=== PATIENT | female | born 1955 | race Caucasian/White ===

== ENCOUNTER 2016-07-22 15:22 | Emergency (ER) | payer MEDICARE, MEDICAID ==
[~2016-07-22] VITALS: Ht 160 cm; Wt 75.0 kg
[~2016-07-22 15:22] MED LIST: ACETAMINOPHEN325 MG PO; ALBUTEROL90 MCG IN; ALPRAZOLAM1 MG PO; ALTOPREV20 MG OR; AMBIEN10 MG PO; AMOXICILLIN500 MG OR; ANTABUSE250 MG OR; ANTIVERT PO; AZMACORT100 MCG IN; BABY ASPIRIN81 MG OR; BAYER LOW81 MG OR; BL IBUPROFEN200 MG PO; CALCITONIN200 MG/ACT; CALCIUM500 MG OR; CEFTIN500 MG PO; CIPROFLOXACN500 MG PO; CLONAZEP ODT0.5 MG OR; CLONAZEPAM1 MG PO; COMPAZINE10 M1 PO; DEPAKOTE ER250 MG PO; FIBERCHOICE OR; FIORICET PO; FLEXERIL; FLEXERIL PO; FLEXERIL10 MG PO; GENTAMICIN0.31 OS; GEODON60 MG PO; HYDROCHLOROTH12.5 MG OR; IMITREX25 MG PO; INDERAL 40MG TA40 MG PO; INVANZ1 GM IJ; KLONOPIN0.5 MG OR; KLONOPIN1 MG PO; LAMICTAL100 M1 PO; LEVOTHROID25 MC1 PO; LEXAPRO10 MG PO; LEXAPRO20 MG OR; LIBRIUM10 M1 PO; LIPITOR80 MG PO; LISINOPRIL5 MG PO; LITHIUM CARB300 M1 OR; LORTAB 10-325 M1 TAB PO; LORTAB 5-325 MG1 TAB PO; LOVASTATIN20 MG OR; MACRODANTIN100 MG PO; MAGNESIUM200 MG OR; MEDDOSEPAK PO; METFORMIN500 MG PO; MULTIVITAMI1 OR; NAPROSYN500 MG PO; NEURONTIN300 MG PO; NEXIUM40 M1 PO; NORCO1 TA1 PO; ONDANSETRON4 MG OR; ONDANSETRON4 MG PO; PERIDEX0.12 % MT; PRILOSEC20 MG OR; PROAIR HFA IN; QVAR80 MCG IN; RISPERDAL0.5 MG OR; SEROQUEL25 MG OR; SOMA350 MG PO; SYMBICORT 80-4.5MCG INHW/SPAC; SYMBICORT 80-4.5MCG PO; TAM75CAP PO; TOPAMAX100 MG PO; TOPAMAX50 MG PO; TORADOL PO; TRAMADOL HYDROC50 MG PO; TRAZODONE100 MG OR; TRAZODONE150 MG OR; TRAZODONE300 MG OR; ULTRAM50 M1 PO; ULTRAM50 MG OR; ULTRAM50 MG PO; VALIUM10 MG OR; VENTOLIN HFA IN; WELLBUTRIN150 M1 PO; XANAX0.5 MG PO; ZANTAC150 M1 PO; ZINC15 MG OR; ZOFRAN4 MG/TAB PO
[2016-07-22 15:45] VITALS: BP 131/55
[2016-07-23] MEDS ORDERED: ULTRAM50 M1 PO (00:03)
== END 2016-07-22 17:40 | disposition left against medical advice (07) ==
LOC: ED 15:22 → LWOBS 17:40
DX: Z91.19 Patient's noncompliance with other medical treatment and regimen (principal)

== ENCOUNTER 2016-07-22 23:09 | Emergency (ER) | payer MEDICARE, MEDICAID ==
[~2016-07-22] VITALS: Ht 160 cm; Wt 76.6 kg
[2016-07-23] MEDS ORDERED: ULTRAM50 M1 PO (00:03)
[2016-07-23 00:26] VITALS: BP 130/86
== END 2016-07-23 00:25 | disposition home or self-care (01) ==
LOC: ED 23:09
DX: S63.501A Unspecified sprain of right wrist, initial encounter (principal); W18.30XA Fall on same level, unspecified, initial encounter; Y93.89 Activity, other specified; Y92.512 Supermarket, store or market as the place of occurrence of the external cause

== ENCOUNTER 2016-08-10 14:54 | Emergency (ER) | payer MEDICARE, MEDICAID ==
[~2016-08-10] VITALS: Ht 160 cm; Wt 72.0 kg
[2016-08-10] MEDS ORDERED: AMBIEN5 MG PO (15:26)
[2016-08-10] MEDS ORDERED: TRAZODONE50 MG PO (15:28)
[2016-08-10] MEDS ORDERED: NORCO1 TA1 PO (15:59)
[2016-08-10 16:23] VITALS: BP 138/81
== END 2016-08-10 16:23 | disposition home or self-care (01) ==
LOC: ED 14:54
DX: G43.909 Migraine, unspecified, not intractable, without status migrainosus (principal)

== ENCOUNTER 2016-08-15 12:39 | Emergency (ER) | payer MEDICARE, MEDICAID ==
[~2016-08-15] VITALS: Ht 160 cm; Wt 70.5 kg
[~2016-08-15 12:39] MED LIST changes: +AMBIEN5 MG PO; +TRAZODONE50 MG PO
[2016-08-15 13:33] LABS: URINE BILIRUBIN - DIPSTICK NEGATIVE (NEGATIVE); URINE BLOOD DIPSTICK NEGATIVE (NEGATIVE); URINE CLARITY CLEAR; URINE COLOR YELLOW; URINE GLUCOSE - DIPSTICK NEGATIVE (NEGATIVE); URINE KETONE NEGATIVE (NEGATIVE); URINE NITRITE - DIPSTICK NEGATIVE (Negative); URINE PH 5.5 (4.5-8.0); URINE PROTEIN - DIPSTICK NEGATIVE (NEG-TRACE); URINE SPECIFIC GRAVITY <=1.005; URINE UROBILINOGEN - DIPSTICK 0.2 E.U./dL (0.2)
[2016-08-15 13:43] LABS: HEMATOCRIT 37.2 % (37.0-47.0); HEMOGLOBIN 11.6 g/dl (12.0-16.0); IMMATURE GRANULOCYTES 0.3 % (0.0-1.0); MEAN CELL VOLUME 86.3 fL CALC (80.0-100.0); MEAN CORPUSCULAR HGB 26.9 pG CALC (26.0-32.0); MEAN CORPUSCULAR HGB CONC 31.2 g/L CALC (32.0-36.0); NEUT# 6.73 thou/uL (2.00-7.15); RED BLOOD COUNT 4.31 mill/uL (4.20-5.60); RED CELL DISTRI WIDTH 17.3 % (11.5-15.5)
[2016-08-15 13:55] LABS: ALBUMIN 3.5 g/dL (3.2-5.0); ALKALINE PHOSPHATASE 113 u/l (38-126); ANION GAP 15 (6-22 (CALC)); BILIRUBIN, TOTAL 0.2 mg/dL (0.0-1.4); BUN 7 mg/dL (8-23); BUN/CREATININE RATIO 12 (12-20 (CALC)); CALCIUM 9.2 mg/dL (8.4-10.2); CARBON DIOXIDE 26 mmol/l (22-30); CHLORIDE 101 mmol/l (95-108); CREATININE 0.6 mg/dL (0.5-1.0); GFR > 60 ML/MIN (>=60 (CALC)); GFR FOR AFR.AMER. > 60 ML/MIN (>=60 (CALC)); GLUCOSE 89 mg/dL (82-115); POTASSIUM 4.4 mmol/l (3.5-5.1); SGOT/AST 11 u/l (9-36); SGPT/ALT 21 u/l (11-66); SODIUM 138 mmol/l (137-146); TOTAL PROTEIN 6.4 g/dL (6.3-8.2)
[2016-08-15 14:07] LABS: MYOGLOBIN 16 ng/mL (0 - 62)
[2016-08-15] MEDS ORDERED: TOPIRAMATE100 MG PO (14:12)
[2016-08-15 15:16] LABS: URINE LEUK ESTERASE SMALL (NEGATIVE)
[2016-08-15 15:18] LABS: URINE BACTERIA MODERATE hpf; URINE SQUAMOUS EPITHELIAL CELL FEW EPI/hpf (0-FEW)
[2016-08-15] MEDS ORDERED: CEPHALEXIN500 MG PO (16:05)
[2016-08-15 16:11] VITALS: BP 129/72
== END 2016-08-15 16:17 | disposition home or self-care (01) ==
LOC: ED 12:39
PROVIDERS: Emergency Medicine
DX: S00.83XA Contusion of other part of head, initial encounter (principal); S00.33XA Contusion of nose, initial encounter; N39.0 Urinary tract infection, site not specified; B96.20 Unspecified Escherichia coli [E. coli] as the cause of diseases classified elsewhere; W18.12XA Fall from or off toilet with subsequent striking against object, initial encounter; Y93.89 Activity, other specified; Y92.002 Bathroom of unspecified non-institutional (private) residence as the place of occurrence of the external cause; I10 Essential (primary) hypertension; R42 Dizziness and giddiness; F17.200 Nicotine dependence, unspecified, uncomplicated

== ENCOUNTER 2016-08-24 08:41 | Emergency (ER) | payer MEDICARE, MEDICAID ==
[~2016-08-24] VITALS: Ht 160 cm; Wt 70.0 kg
[~2016-08-24 08:41] MED LIST changes: +CEPHALEXIN500 MG PO; +TOPIRAMATE100 MG PO
[2016-08-24] MEDS ORDERED: VANTIN200 M1 PO (08:55)
[2016-08-24 09:19] LABS: HEMATOCRIT 39.6 % (37.0-47.0); HEMOGLOBIN 12.6 g/dl (12.0-16.0); IMMATURE GRANULOCYTES 0.4 % (0.0-1.0); MEAN CELL VOLUME 85.3 fL CALC (80.0-100.0); MEAN CORPUSCULAR HGB 27.2 pG CALC (26.0-32.0); MEAN CORPUSCULAR HGB CONC 31.8 g/L CALC (32.0-36.0); NEUT# 5.53 thou/uL (2.00-7.15); RED BLOOD COUNT 4.64 mill/uL (4.20-5.60); RED CELL DISTRI WIDTH 17.2 % (11.5-15.5)
[2016-08-24 09:28] LABS: ALBUMIN 3.7 g/dL (3.2-5.0); ALKALINE PHOSPHATASE 114 u/l (38-126); AMYLASE 56 u/l (30-110); ANION GAP 15 (6-22 (CALC)); BILIRUBIN, TOTAL 0.2 mg/dL (0.0-1.4); BUN 5 mg/dL (8-23); BUN/CREATININE RATIO 8 (12-20 (CALC)); CALCIUM 9.3 mg/dL (8.4-10.2); CARBON DIOXIDE 23 mmol/l (22-30); CHLORIDE 101 mmol/l (95-108); CREATININE 0.7 mg/dL (0.5-1.0); GFR > 60 ML/MIN (>=60 (CALC)); GFR FOR AFR.AMER. > 60 ML/MIN (>=60 (CALC)); GLUCOSE 94 mg/dL (82-115); LIPASE 48 u/l (23-300); SGOT/AST 12 u/l (9-36); SGPT/ALT 19 u/l (11-66); SODIUM 136 mmol/l (137-146)
[2016-08-24 09:39] LABS: MYOGLOBIN 15 ng/mL (0 - 62)
[2016-08-24 10:37] LABS: URINE BILIRUBIN - DIPSTICK NEGATIVE (NEGATIVE); URINE BLOOD DIPSTICK NEGATIVE (NEGATIVE); URINE CLARITY CLEAR; URINE COLOR YELLOW; URINE GLUCOSE - DIPSTICK NEGATIVE (NEGATIVE); URINE KETONE NEGATIVE (NEGATIVE); URINE LEUK ESTERASE NEGATIVE (NEGATIVE); URINE NITRITE - DIPSTICK NEGATIVE (Negative); URINE PROTEIN - DIPSTICK NEGATIVE (NEG-TRACE); URINE SPECIFIC GRAVITY <=1.005; URINE UROBILINOGEN - DIPSTICK 0.2 E.U./dL (0.2)
[2016-08-24] MEDS ORDERED: IMODIUM2 MG PO (10:59)
[2016-08-24] MEDS ORDERED: ZOFRAN ODT4 MG PO (10:59)
[2016-08-24 11:02] VITALS: BP 141/83
== END 2016-08-24 11:14 | disposition home or self-care (01) ==
LOC: ED 08:41
PROVIDERS: Emergency Medicine
DX: K52.9 Noninfective gastroenteritis and colitis, unspecified (principal); R11.2 Nausea with vomiting, unspecified; R94.31 Abnormal electrocardiogram [ECG] [EKG]; R50.9 Fever, unspecified; F17.210 Nicotine dependence, cigarettes, uncomplicated; R10.9 Unspecified abdominal pain

== ENCOUNTER 2016-09-16 10:29 | Emergency (ER) | payer MEDICARE, MEDICAID ==
[~2016-09-16] VITALS: Ht 160 cm; Wt 90.0 kg
[~2016-09-16 10:29] MED LIST changes: +IMODIUM2 MG PO; +VANTIN200 M1 PO; +ZOFRAN ODT4 MG PO
[2016-09-16 11:35] VITALS: BP 130/78
== END 2016-09-16 11:38 | disposition home or self-care (01) ==
LOC: ED 10:29
DX: G43.909 Migraine, unspecified, not intractable, without status migrainosus (principal); I25.10 Atherosclerotic heart disease of native coronary artery without angina pectoris; E78.5 Hyperlipidemia, unspecified; F31.9 Bipolar disorder, unspecified; J45.909 Unspecified asthma, uncomplicated; F41.9 Anxiety disorder, unspecified

== ENCOUNTER 2016-10-13 16:44 | Emergency (ER) | payer MEDICARE, MEDICAID ==
[~2016-10-13] VITALS: Ht 160 cm; Wt 75.0 kg
[2016-10-13] MEDS ORDERED: ESOMEPRAZOLE MA40 MG PO (17:35)
[2016-10-13] MEDS ORDERED: FUROSEMIDE20 MG PO (17:35)
[2016-10-13] MEDS ORDERED: ANTIVERT PO (17:36)
[2016-10-13] MEDS ORDERED: ZOLMITRIPTAN5 MG PO (17:38)
[2016-10-13] MEDS ORDERED: TIZANIDINE HCL4 MG PO (17:39)
[2016-10-13] MEDS ORDERED: FLEXERIL PO (19:13)
[2016-10-13] MEDS ORDERED: LORTAB 10-325 M1 TAB PO (19:13)
[2016-10-13 19:20] VITALS: BP 131/74
== END 2016-10-13 19:20 | disposition home or self-care (01) ==
LOC: ED 16:44
DX: S39.012A Strain of muscle, fascia and tendon of lower back, initial encounter (principal); X50.0XXA Overexertion from strenuous movement or load, initial encounter; Y93.E9 Activity, other interior property and clothing maintenance; Y92.009 Unspecified place in unspecified non-institutional (private) residence as the place of occurrence of the external cause

== ENCOUNTER 2016-11-15 07:52 | Emergency (ER) | payer MEDICARE, MEDICAID ==
[~2016-11-15] VITALS: Ht 160 cm; Wt 70.0 kg
[~2016-11-15 07:52] MED LIST changes: +ESOMEPRAZOLE MA40 MG PO; +FUROSEMIDE20 MG PO; +TIZANIDINE HCL4 MG PO; +ZOLMITRIPTAN5 MG PO
[2016-11-15] MEDS ORDERED: LAMICTAL100 MG PO (08:28)
[2016-11-15 09:00] LABS: HEMATOCRIT 35.8 % (37.0-47.0); HEMOGLOBIN 11.4 g/dl (12.0-16.0); IMMATURE GRANULOCYTES 0.3 % (0.0-1.0); MEAN CELL VOLUME 87.1 fL CALC (80.0-100.0); MEAN CORPUSCULAR HGB 27.7 pG CALC (26.0-32.0); MEAN CORPUSCULAR HGB CONC 31.8 g/L CALC (32.0-36.0); NEUT# 6.21 thou/uL (2.00-7.15); RED BLOOD COUNT 4.11 mill/uL (4.20-5.60); RED CELL DISTRI WIDTH 17.1 % (11.5-15.5)
[2016-11-15 09:01] LABS: ALBUMIN 3.8 g/dL (3.2-5.0)
[2016-11-15] MEDS ORDERED: ESCITALOPRAM OX10 MG PO (09:07)
[2016-11-15] MEDS ORDERED: TOPIRAMATE100 MG PO (09:08)
[2016-11-15] MEDS ORDERED: GABAPENTIN100 MG PO (09:09)
[2016-11-15] MEDS ORDERED: METFORMIN500 MG PO (09:10)
[2016-11-15] MEDS ORDERED: LIPITOR80 M1 PO (09:10)
[2016-11-15 09:16] LABS: MYOGLOBIN 17 ng/mL (0 - 62)
[2016-11-15 09:30] LABS: PROTHROMBIN TIME 10.7 SECONDS (9.0-12.5)
[2016-11-15 10:18] LABS: ANION GAP 11 (6-22 (CALC)); BUN 9 mg/dL (8-23); BUN/CREATININE RATIO 12 (12-20 (CALC)); CALCIUM 9.2 mg/dL (8.4-10.2); CARBON DIOXIDE 28 mmol/l (22-30); CHLORIDE 103 mmol/l (95-108); CREATININE 0.7 mg/dL (0.5-1.0); GFR > 60 ML/MIN (>=60 (CALC)); GFR FOR AFR.AMER. > 60 ML/MIN (>=60 (CALC)); GLUCOSE 96 mg/dL (82-115); POTASSIUM 4.1 mmol/l (3.5-5.1); SODIUM 138 mmol/l (137-146)
[2016-11-15] MEDS ORDERED: PERCOCET 5/325M1 TAB PO (10:43)
[2016-11-15] MEDS ORDERED: ASPIRIN 81 LOW81 MG PO (10:43)
[2016-11-15 10:45] VITALS: BP 139/84
== END 2016-11-15 10:58 | disposition home or self-care (01) ==
LOC: ED 07:52
PROVIDERS: Emergency Medicine
DX: R51 Headache (principal); F31.9 Bipolar disorder, unspecified; F41.0 Panic disorder [episodic paroxysmal anxiety]; I25.10 Atherosclerotic heart disease of native coronary artery without angina pectoris; E78.5 Hyperlipidemia, unspecified; I10 Essential (primary) hypertension; J45.909 Unspecified asthma, uncomplicated; M19.90 Unspecified osteoarthritis, unspecified site

== ENCOUNTER 2016-12-25 09:39 | Emergency (ER) | payer MEDICARE, MEDICAID ==
[~2016-12-25] VITALS: Ht 160 cm; Wt 70.0 kg
[~2016-12-25 09:39] MED LIST changes: +ASPIRIN 81 LOW81 MG PO; +ESCITALOPRAM OX10 MG PO; +GABAPENTIN100 MG PO; +LAMICTAL100 MG PO; +LIPITOR80 M1 PO; +PERCOCET 5/325M1 TAB PO
[2016-12-25 10:35] VITALS: BP 118/60
== END 2016-12-25 10:35 | disposition home or self-care (01) ==
LOC: ED 09:39
DX: G43.909 Migraine, unspecified, not intractable, without status migrainosus (principal); F31.9 Bipolar disorder, unspecified; F41.0 Panic disorder [episodic paroxysmal anxiety]; I25.10 Atherosclerotic heart disease of native coronary artery without angina pectoris; E78.5 Hyperlipidemia, unspecified; I10 Essential (primary) hypertension; J45.909 Unspecified asthma, uncomplicated; M19.90 Unspecified osteoarthritis, unspecified site; F17.210 Nicotine dependence, cigarettes, uncomplicated

== ENCOUNTER 2017-01-12 09:58 | Emergency (ER) | payer MEDICARE, MEDICAID ==
[~2017-01-12] VITALS: Ht 160 cm; Wt 75.0 kg
[2017-01-12 10:03] VITALS: BP 134/91
[2017-01-12] MEDS ORDERED: FIORICET PO (10:17)
[2017-01-12 10:47] LABS: HEMATOCRIT 39.9 % (37.0-47.0); HEMOGLOBIN 12.9 g/dl (12.0-16.0); IMMATURE GRANULOCYTES 0.3 % (0.0-1.0); MEAN CELL VOLUME 85.1 fL CALC (80.0-100.0); MEAN CORPUSCULAR HGB 27.5 pG CALC (26.0-32.0); MEAN CORPUSCULAR HGB CONC 32.3 g/L CALC (32.0-36.0); NEUT# 7.26 thou/uL (2.00-7.15); RED BLOOD COUNT 4.69 mill/uL (4.20-5.60); RED CELL DISTRI WIDTH 16.3 % (11.5-15.5)
[2017-01-12 11:19] LABS: ALBUMIN 4.2 g/dL (3.2-5.0); ALKALINE PHOSPHATASE 83 u/l (38-126); ANION GAP 17 (6-22 (CALC)); BILIRUBIN, TOTAL 0.5 mg/dL (0.0-1.4); BUN 11 mg/dL (8-23); BUN/CREATININE RATIO 13 (12-20 (CALC)); CALCIUM 10.2 mg/dL (8.4-10.2); CARBON DIOXIDE 22 mmol/l (22-30); CHLORIDE 107 mmol/l (95-108); CREATININE 0.9 mg/dL (0.5-1.0); GFR > 60 ML/MIN (>=60 (CALC)); GFR FOR AFR.AMER. > 60 ML/MIN (>=60 (CALC)); GLUCOSE 104 mg/dL (82-115); POTASSIUM 3.8 mmol/l (3.5-5.1); SGOT/AST 11 u/l (9-36); SGPT/ALT 23 u/l (11-66); SODIUM 142 mmol/l (137-146); TOTAL PROTEIN 7.3 g/dL (6.3-8.2)
[2017-01-12 12:02] LABS: URINE BILIRUBIN - DIPSTICK NEGATIVE (NEGATIVE); URINE BLOOD DIPSTICK NEGATIVE (NEGATIVE); URINE CLARITY CLEAR; URINE COLOR YELLOW; URINE GLUCOSE - DIPSTICK NEGATIVE (NEGATIVE); URINE KETONE NEGATIVE (NEGATIVE); URINE LEUK ESTERASE NEGATIVE (NEGATIVE); URINE NITRITE - DIPSTICK NEGATIVE (Negative); URINE PROTEIN - DIPSTICK NEGATIVE (NEG-TRACE); URINE SPECIFIC GRAVITY 1.025; URINE UROBILINOGEN - DIPSTICK 0.2 E.U./dL (0.2)
== END 2017-01-12 12:11 | disposition left against medical advice (07) ==
LOC: ED 09:58
PROVIDERS: Emergency Medicine
DX: R33.9 Retention of urine, unspecified (principal); R50.9 Fever, unspecified; Z91.19 Patient's noncompliance with other medical treatment and regimen; I25.10 Atherosclerotic heart disease of native coronary artery without angina pectoris; F17.210 Nicotine dependence, cigarettes, uncomplicated; I10 Essential (primary) hypertension

== ENCOUNTER 2017-01-30 04:02 | Emergency (ER) | payer MEDICARE, MEDICAID ==
[~2017-01-30] VITALS: Ht 160 cm; Wt 70.0 kg
[2017-01-30] MEDS ORDERED: LORAZEPAM0.5 MG PO (04:20)
[2017-01-30 05:27] VITALS: BP 142/74
== END 2017-01-30 05:32 | disposition home or self-care (01) ==
LOC: ED 04:02
DX: G89.29 Other chronic pain (principal); M41.9 Scoliosis, unspecified; I25.10 Atherosclerotic heart disease of native coronary artery without angina pectoris; E78.5 Hyperlipidemia, unspecified; I10 Essential (primary) hypertension; F31.9 Bipolar disorder, unspecified; J45.909 Unspecified asthma, uncomplicated; F41.9 Anxiety disorder, unspecified; M19.90 Unspecified osteoarthritis, unspecified site; F17.210 Nicotine dependence, cigarettes, uncomplicated

== ENCOUNTER 2017-02-08 06:45 | Emergency (ER) | payer MEDICARE, MEDICAID ==
[~2017-02-08] VITALS: Ht 160 cm; Wt 70.0 kg
[~2017-02-08 06:45] MED LIST changes: +LORAZEPAM0.5 MG PO
[2017-02-08 07:00] VITALS: BP 150/101
== END 2017-02-08 07:39 | disposition home or self-care (01) ==
LOC: ED 06:45
DX: F41.9 Anxiety disorder, unspecified (principal)
CPT/HCPCS: J2060

== ENCOUNTER 2017-02-16 08:35 | Day surgery (SDC) | payer MEDICARE, MEDICAID ==
[~2017-02-16] VITALS: Ht 160 cm; Wt 68.9 kg
[~2017-02-16 08:35] MED LIST changes: +ACIPHEX20 M1 PO; +BACTRIM1 TAB PO; +FOLIC ACID1 M1 PO; +GABAPENTIN800 MG PO; +HYDROXYZINE HCL25 M1 PO; +MULTIVITAMIN AD1 TAB PO; +ROBAXIN-750750 MG PO; +TRAMADOL HCL50 MG PO; +VITAMIN D-31000 UNI1 PO
[2017-02-16 11:14] VITALS: BP 146/81
== END 2017-02-16 11:10 | disposition home or self-care (01) ==
LOC: ORM 08:35
PROVIDERS: ATTEND Anesthesiology Pain Medicine
PROC: 3E0T3BZ Introduction of Anesthetic Agent into Peripheral Nerves and Plexi, Percutaneous Approach (ICD-10-PCS; principal; 2017-02-16)
PROC: 3E0T33Z Introduction of Anti-inflammatory into Peripheral Nerves and Plexi, Percutaneous Approach (ICD-10-PCS; 2017-02-16)
DX: R51 Headache (principal); G44.89 Other headache syndrome; M54.2 Cervicalgia; M41.9 Scoliosis, unspecified

== ENCOUNTER 2017-03-02 06:19 | Day surgery (SDC) | payer MEDICARE, MEDICAID ==
[~2017-03-02] VITALS: Ht 160 cm; Wt 70.3 kg
[2017-03-02 08:24] VITALS: BP 123/64
[2017-03-02] MEDS ORDERED: VOLTAREN1%GEL TOP ×2 (08:54→08:57)
[2017-03-08] MEDS ORDERED: LEXAPRO20 MG PO (10:06)
[2017-03-08] MEDS ORDERED: BACTRIM1 TAB PO (10:07)
[2017-03-08] MEDS ORDERED: NORCO1 TA2 PO (10:38)
== END 2017-03-02 09:02 | disposition home or self-care (01) ==
LOC: ORM 06:19
PROVIDERS: ATTEND Anesthesiology Pain Medicine
PROC: 3E0T33Z Introduction of Anti-inflammatory into Peripheral Nerves and Plexi, Percutaneous Approach (ICD-10-PCS; principal; 2017-03-02)
PROC: 3E0T3BZ Introduction of Anesthetic Agent into Peripheral Nerves and Plexi, Percutaneous Approach (ICD-10-PCS; 2017-03-02)
DX: R51 Headache (principal); G44.89 Other headache syndrome; M54.2 Cervicalgia

== ENCOUNTER 2017-03-15 09:23 | Emergency (ER) | payer MEDICARE, MEDICAID ==
[~2017-03-15] VITALS: Ht 160 cm; Wt 68.0 kg
[~2017-03-15 09:23] MED LIST changes: +LEXAPRO20 MG PO; +NORCO1 TA2 PO; +VOLTAREN1%GEL TOP
[2017-03-15] MEDS ORDERED: NAPROSYN500 MG PO (10:01)
[2017-03-15 10:15] VITALS: BP 159/96
== END 2017-03-15 10:38 | disposition home or self-care (01) ==
LOC: ED 09:23
DX: G43.909 Migraine, unspecified, not intractable, without status migrainosus (principal); R11.0 Nausea

== ENCOUNTER 2017-04-14 12:07 | Emergency (ER) | payer MEDICARE, MEDICAID ==
[~2017-04-14] VITALS: Ht 160 cm; Wt 70.0 kg
[2017-04-14 13:14] LABS: ALBUMIN 4.4 g/dL (3.2-5.0); ALKALINE PHOSPHATASE 122 u/l (38-126); ANION GAP 19 (6-22 (CALC)); BILIRUBIN, TOTAL 0.6 mg/dL (0.0-1.4); BUN 9 mg/dL (8-23); BUN/CREATININE RATIO 13 (12-20 (CALC)); CALCIUM 9.7 mg/dL (8.4-10.2); CARBON DIOXIDE 24 mmol/l (22-30); CHLORIDE 105 mmol/l (95-108); CREATININE 0.7 mg/dL (0.5-1.0); GFR > 60 ML/MIN (>=60 (CALC)); GFR FOR AFR.AMER. > 60 ML/MIN (>=60 (CALC)); GLUCOSE 117 mg/dL (82-115); POTASSIUM 3.4 mmol/l (3.5-5.1); SGOT/AST 119 u/l (9-36); SGPT/ALT 57 u/l (11-66); SODIUM 144 mmol/l (137-146); TOTAL PROTEIN 7.3 g/dL (6.3-8.2)
[2017-04-14 13:47] LABS: HEMATOCRIT 38.7 % (37.0-47.0); IMMATURE GRANULOCYTES 0.4 % (0.0-1.0); MEAN CELL VOLUME 84.7 fL CALC (80.0-100.0); MEAN CORPUSCULAR HGB 28.4 pG CALC (26.0-32.0); MEAN CORPUSCULAR HGB CONC 33.6 g/L CALC (32.0-36.0); NEUT# 10.7 thou/uL (2.00-7.15); RED BLOOD COUNT 4.57 mill/uL (4.20-5.60); RED CELL DISTRI WIDTH 15.8 % (11.5-15.5)
[2017-04-14 14:00] LABS: URINE BLOOD DIPSTICK SMALL (NEGATIVE); URINE COLOR YELLOW; URINE GLUCOSE - DIPSTICK NEGATIVE (NEGATIVE); URINE KETONE 40 mg/dL (NEGATIVE); URINE LEUK ESTERASE NEGATIVE (NEGATIVE); URINE NITRITE - DIPSTICK NEGATIVE (Negative); URINE PROTEIN - DIPSTICK 30 mg/dL (NEG-TRACE); URINE SPECIFIC GRAVITY 1.025
[2017-04-14 14:09] LABS: URINE BILIRUBIN - DIPSTICK SMALL (NEGATIVE); URINE CLARITY CLEAR
[2017-04-14 14:15] LABS: BARBITURATES POSITIVE (NEGATIVE); COCAINE NEGATIVE (NEGATIVE); METHADONE NEGATIVE (NEGATIVE); OXCYCODONE NEGATIVE (NEGATIVE); TETRAHYDROCANNABIONOL NEGATIVE (NEGATIVE); TRICYLIC ANTIDEPRESSANTS NEGATIVE (NEGATIVE)
[2017-04-14 14:24] LABS: URINE SQUAMOUS EPITHELIAL CELL FEW EPI/hpf (0-FEW)
[2017-04-14] MEDS ORDERED: METHOCARBAMOL500 MG PO (16:36)
[2017-04-14] MEDS ORDERED: TRAZODONE50 MG PO (16:38)
[2017-04-14] MEDS ORDERED: AMBIEN5 MG PO (16:39)
[2017-04-14 19:38] VITALS: BP 90/55
== END 2017-04-14 19:37 ==
LOC: ED 12:07
PROVIDERS: Emergency Medicine
DX: F29 Unspecified psychosis not due to a substance or known physiological condition (principal); S22.32XA Fracture of one rib, left side, initial encounter for closed fracture; N39.0 Urinary tract infection, site not specified; I25.10 Atherosclerotic heart disease of native coronary artery without angina pectoris; E78.5 Hyperlipidemia, unspecified; I10 Essential (primary) hypertension; F31.9 Bipolar disorder, unspecified; J45.909 Unspecified asthma, uncomplicated; F41.9 Anxiety disorder, unspecified; M19.90 Unspecified osteoarthritis, unspecified site; F17.210 Nicotine dependence, cigarettes, uncomplicated; W19.XXXA Unspecified fall, initial encounter; Y92.009 Unspecified place in unspecified non-institutional (private) residence as the place of occurrence of the external cause
CPT/HCPCS: J2060; S0164

== ENCOUNTER 2017-08-23 15:00 | Emergency (ER) | payer MEDICARE, MEDICAID ==
[~2017-08-23] VITALS: Ht 157.5 cm; Wt 73.0 kg
[~2017-08-23 15:00] MED LIST changes: +METHOCARBAMOL500 MG PO; +XANAX1 MG PO
[2017-08-23] MEDS ORDERED: LORAZEPAM0.5 MG PO (15:23)
[2017-08-23 16:08] LABS: URINE BILIRUBIN - DIPSTICK NEGATIVE (NEGATIVE); URINE BLOOD DIPSTICK NEGATIVE (NEGATIVE); URINE COLOR YELLOW; URINE GLUCOSE - DIPSTICK NEGATIVE (NEGATIVE); URINE KETONE NEGATIVE (NEGATIVE); URINE PROTEIN - DIPSTICK NEGATIVE (NEG-TRACE); URINE UROBILINOGEN - DIPSTICK 0.2 E.U./dL (0.2)
[2017-08-23 16:09] LABS: HEMATOCRIT 45.3 % (37.0-47.0); HEMOGLOBIN 14.4 g/dl (12.0-16.0); IMMATURE GRANULOCYTES 0.3 % (0.0-1.0); MEAN CELL VOLUME 82.5 fL CALC (80.0-100.0); MEAN CORPUSCULAR HGB 26.2 pG CALC (26.0-32.0); MEAN CORPUSCULAR HGB CONC 31.8 g/L CALC (32.0-36.0); NEUT# 8.61 thou/uL (2.00-7.15); RED BLOOD COUNT 5.49 mill/uL (4.20-5.60)
[2017-08-23 16:11] LABS: URINE CLARITY HAZY; URINE LEUK ESTERASE SMALL (NEGATIVE); URINE NITRITE - DIPSTICK POSITIVE (Negative)
[2017-08-23 16:12] LABS: BARBITURATES NEGATIVE (NEGATIVE); COCAINE NEGATIVE (NEGATIVE); METHADONE NEGATIVE (NEGATIVE); OXCYCODONE POSITIVE (NEGATIVE); TETRAHYDROCANNABIONOL NEGATIVE (NEGATIVE); TRICYLIC ANTIDEPRESSANTS NEGATIVE (NEGATIVE)
[2017-08-23 16:17] LABS: URINE BACTERIA FEW hpf; URINE SQUAMOUS EPITHELIAL CELL FEW EPI/hpf (0-FEW); URINE WBC 20-50 WBC/hpf (0-5)
[2017-08-23 16:22] LABS: ANION GAP 19 (6-22 (CALC)); BUN 10 mg/dL (8-23); BUN/CREATININE RATIO 12 (12-20 (CALC)); CARBON DIOXIDE 23 mmol/l (22-30); CHLORIDE 101 mmol/l (95-108); CREATININE 0.8 mg/dL (0.5-1.0); GFR > 60 ML/MIN (>=60 (CALC)); GFR FOR AFR.AMER. > 60 ML/MIN (>=60 (CALC)); POTASSIUM 3.4 mmol/l (3.5-5.1); SODIUM 139 mmol/l (137-146)
[2017-08-23] MEDS ORDERED: POTASSIUM CHLO20 ME1 PO (18:22)
[2017-08-23] MEDS ORDERED: CEPHALEXIN500 M1 PO (18:22)
[2017-08-23 18:36] VITALS: BP 128/85
== END 2017-08-23 18:36 | disposition home or self-care (01) ==
LOC: ED 15:00
PROVIDERS: Family Medicine
DX: F41.0 Panic disorder [episodic paroxysmal anxiety] (principal); F31.9 Bipolar disorder, unspecified; F17.210 Nicotine dependence, cigarettes, uncomplicated; R51 Headache; N39.0 Urinary tract infection, site not specified; B96.20 Unspecified Escherichia coli [E. coli] as the cause of diseases classified elsewhere

== ENCOUNTER 2017-11-13 06:42 | Emergency (ER) | payer MEDICARE, MEDICAID ==
[~2017-11-13] VITALS: Ht 157.5 cm; Wt 80.0 kg
[~2017-11-13 06:42] MED LIST changes: +CEPHALEXIN500 M1 PO; +POTASSIUM CHLO20 ME1 PO
[2017-11-13 07:07] VITALS: BP 168/84
== END 2017-11-13 07:17 | disposition home or self-care (01) ==
LOC: ED 06:42
DX: R51 Headache (principal); G89.29 Other chronic pain; F17.200 Nicotine dependence, unspecified, uncomplicated; R11.0 Nausea

== ENCOUNTER 2017-11-29 09:53 | Observation (INO) | payer MEDICARE, MEDICAID ==
[~2017-11-29] VITALS: Ht 157.5 cm; Wt 72.7 kg
[2017-11-29 00:30] VITALS: BP 135/84
[2017-11-29 10:10] LABS: HEMOGLOBIN 13.7 g/dl (12.0-16.0); IMMATURE GRANULOCYTES 0.5 % (0.0-5.0); MEAN CORPUSCULAR HGB 25.7 pG CALC (26.0-32.0); MEAN CORPUSCULAR HGB CONC 33.4 g/L CALC (32.0-36.0); NEUT# 9.91 thou/uL (2.00-7.15); RED BLOOD COUNT 5.33 mill/uL (4.20-5.60); RED CELL DISTRI WIDTH 15.1 % (11.5-15.5)
[2017-11-29 10:19] LABS: MEAN CELL VOLUME 76.9 fL CALC (80.0-100.0)
[2017-11-29 10:29] LABS: ANION GAP 18 (6-22 (CALC)); BUN 8 mg/dL (8-23); BUN/CREATININE RATIO 12 (12-20 (CALC)); CARBON DIOXIDE 20 mmol/l (22-30); CHLORIDE 99 mmol/l (95-108); CREATININE 0.7 mg/dL (0.5-1.0); GFR > 60 ML/MIN (>=60 (CALC)); GFR FOR AFR.AMER. > 60 ML/MIN (>=60 (CALC)); POTASSIUM 3.6 mmol/l (3.5-5.1); SODIUM 134 mmol/l (137-146)
[2017-11-29] MEDS ORDERED: VISTARIL25 MG PO (10:46)
[2017-11-29] MEDS ORDERED: ZOLPIDEM5 M1 PO (10:48)
[2017-11-29] MEDS ORDERED: KLONOPIN0.5 MG PO (10:49)
[2017-11-29 11:26] VITALS: BP 122/81
[2017-11-29 15:15] VITALS: BP 127/79
[2017-11-29 18:42] LABS: CHOLESTEROL HDL RATIO 5.1 (<4.4 (CALC)); MAGNESIUM 1.7 mg/dL (1.6-2.3)
[2017-11-29 19:25] VITALS: BP 115/80
[2017-11-30 03:54] VITALS: BP 140/62
[2017-11-30 05:04] VITALS: BP 126/80
[2017-11-30 05:34] LABS: CHOLESTEROL HDL RATIO 5.2 (<4.4 (CALC))
[2017-11-30 08:56] VITALS: BP 133/62
[2017-11-30 12:05] VITALS: BP 121/85
[2017-11-30] MEDS ORDERED: KLONOPIN0.5 MG PO (12:13)
== END 2017-11-30 13:33 | disposition home or self-care (01) ==
LOC: ED 09:53 → ED-I 10:40 → ED 10:47 → MS2 10:48
PROVIDERS: Family Medicine; Nurse Practitioner Family; ADMIT Internal Medicine; ATTEND Internal Medicine
DX: R07.89 Other chest pain (principal); F41.0 Panic disorder [episodic paroxysmal anxiety]; F31.9 Bipolar disorder, unspecified; F17.210 Nicotine dependence, cigarettes, uncomplicated; G43.909 Migraine, unspecified, not intractable, without status migrainosus; R11.0 Nausea

== ENCOUNTER 2017-12-12 08:22 | Emergency (ER) | payer MEDICARE, MEDICAID ==
[~2017-12-12] VITALS: Ht 157.5 cm; Wt 80.0 kg
[~2017-12-12 08:22] MED LIST changes: +KLONOPIN0.5 MG PO; +VISTARIL25 MG PO; +ZOLPIDEM5 M1 PO
[2017-12-12 09:00] VITALS: BP 158/82
== END 2017-12-12 09:00 | disposition home or self-care (01) ==
LOC: ED 08:22
DX: F41.9 Anxiety disorder, unspecified (principal); G43.909 Migraine, unspecified, not intractable, without status migrainosus; F31.9 Bipolar disorder, unspecified; F17.210 Nicotine dependence, cigarettes, uncomplicated

== ENCOUNTER 2018-02-14 08:16 | Emergency (ER) | payer MEDICARE, MEDICAID ==
[~2018-02-14] VITALS: Ht 157.5 cm; Wt 70.0 kg
[2018-02-14 09:21] LABS: URINE BILIRUBIN - DIPSTICK NEGATIVE (NEGATIVE); URINE BLOOD DIPSTICK NEGATIVE (NEGATIVE); URINE COLOR YELLOW; URINE GLUCOSE - DIPSTICK NEGATIVE (NEGATIVE); URINE KETONE NEGATIVE (NEGATIVE); URINE LEUK ESTERASE NEGATIVE (NEGATIVE); URINE NITRITE - DIPSTICK NEGATIVE (Negative); URINE PROTEIN - DIPSTICK NEGATIVE (NEG-TRACE); URINE SPECIFIC GRAVITY 1.015; URINE UROBILINOGEN - DIPSTICK 0.2 E.U./dL (0.2)
[2018-02-14 09:22] LABS: URINE CLARITY CLEAR
[2018-02-14 10:23] VITALS: BP 126/72
== END 2018-02-14 10:35 | disposition home or self-care (01) ==
LOC: ED 08:16
PROVIDERS: Family Medicine
DX: G43.909 Migraine, unspecified, not intractable, without status migrainosus (principal); R11.0 Nausea; H53.149 Visual discomfort, unspecified

== ENCOUNTER 2018-03-13 16:26 | Emergency (ER) | payer MEDICARE, MEDICAID | END 2018-03-13 17:14 | disposition left against medical advice (07) | LOC: ED 16:26 → LWOBS 17:13 | DX: Z91.19 Patient's noncompliance with other medical treatment and regimen (principal) ==

== ENCOUNTER 2018-07-12 19:38 | Emergency (ER) | payer MEDICARE, MEDICAID ==
[~2018-07-12] VITALS: Ht 157.5 cm; Wt 90.0 kg
[2018-07-12] MEDS ORDERED: DEPAKOTE125 MG PO (19:50)
[2018-07-12] MEDS ORDERED: KLONOPIN1 MG PO (19:50)
[2018-07-12 20:14] LABS: HEMATOCRIT 43.8 % (37.0-47.0); HEMOGLOBIN 13.6 g/dl (12.0-16.0); IMMATURE GRANULOCYTES 0.5 % (0.0-5.0); MEAN CORPUSCULAR HGB 27.6 pG CALC (26.0-32.0); MEAN CORPUSCULAR HGB CONC 31.1 g/L CALC (32.0-36.0); NEUT# 8.21 thou/uL (2.00-7.15); RED BLOOD COUNT 4.92 mill/uL (4.20-5.60); RED CELL DISTRI WIDTH 17.1 % (11.5-15.5)
[2018-07-12 20:34] LABS: ALBUMIN 4.2 g/dL (3.2-5.0); ALKALINE PHOSPHATASE 75 u/l (38-126); BILIRUBIN, TOTAL 0.3 mg/dL (0.0-1.4); BUN 11 mg/dL (8-23); BUN/CREATININE RATIO 18 (12-20 (CALC)); CHLORIDE 97 mmol/l (95-108); CREATININE 0.6 mg/dL (0.5-1.0); GFR > 60 ML/MIN (>=60 (CALC)); GFR FOR AFR.AMER. > 60 ML/MIN (>=60 (CALC)); SODIUM 135 mmol/l (137-146); TOTAL PROTEIN 7.1 g/dL (6.3-8.2)
[2018-07-12 20:37] LABS: ANION GAP 15 (6-22 (CALC)); CARBON DIOXIDE 28 mmol/l (22-30); POTASSIUM 4.5 mmol/l (3.5-5.1); SGOT/AST 16 u/l (9-36)
[2018-07-13 02:36] VITALS: BP 149/75
== END 2018-07-13 02:36 | disposition short-term general hospital (02) ==
LOC: ED 19:38
PROVIDERS: Emergency Medicine
DX: R13.10 Dysphagia, unspecified (principal); K44.9 Diaphragmatic hernia without obstruction or gangrene; R06.2 Wheezing; F17.200 Nicotine dependence, unspecified, uncomplicated; Z85.9 Personal history of malignant neoplasm, unspecified

== ENCOUNTER 2018-09-24 10:02 | Inpatient (IN) | payer MEDICARE, MEDICAID ==
[~2018-09-24] VITALS: Ht 157.5 cm; Wt 84.8 kg
[~2018-09-24 10:02] MED LIST changes: +DEPAKOTE125 MG PO; +KEFLEX500 M1 PO
--- NOTE | 2018-09-24 10:02 | NUR ---
PT TO ROOM 12 VIA EMS GIVEN SOLUMEDROL, DUONEB, IV ENROUTE.
--- NOTE | 2018-09-24 10:30 | NUR ---
PATIENT ARRIVES TO ED WITH SOB X3 WEEKS. PATIENT NOTED TO BE DROWSY, IS ORIENTED X4. WHEEZING TO BILATERAL LUNGS AND COARSE LUNG SOUNDS TO BILATERAL LOWER LOBES. DENIES HOME O2 USE. HX OF COPD, HALF PACK A DAY CIGARETTE SMOKER. STRONG NICORINE ODOR NOTED.
[2018-09-24 10:31] LABS: HEMATOCRIT 47.5 % (37.0-47.0); HEMOGLOBIN 14.6 g/dl (12.0-16.0); IMMATURE GRANULOCYTES 0.4 % (0.0-5.0); MEAN CELL VOLUME 87.5 fL CALC (80.0-100.0); MEAN CORPUSCULAR HGB 26.9 pG CALC (26.0-32.0); MEAN CORPUSCULAR HGB CONC 30.7 g/L CALC (32.0-36.0); NEUT# 5.31 thou/uL (2.00-7.15); RED BLOOD COUNT 5.43 mill/uL (4.20-5.60); RED CELL DISTRI WIDTH 16.3 % (11.5-15.5)
--- NOTE | 2018-09-24 10:39 | NUR ---
PATIENT UNABLE TO VERIFY HOME MEDICATIONS. STATES BEING PLACED ON NEW MEDICATIONS BY PCP, DOES NOT HAVE MED LIST WITH HER. DENIES TAKING ANY PAIN MEDICATIONS.
[2018-09-24 10:51] LABS: ALBUMIN 3.7 g/dL (3.2-5.0); ALKALINE PHOSPHATASE 77 u/l (38-126); ANION GAP 8 (6-22 (CALC)); BILIRUBIN, TOTAL 0.4 mg/dL (0.0-1.4); BUN 6 mg/dL (8-23); BUN/CREATININE RATIO 9 (12-20 (CALC)); CHLORIDE 95 mmol/l (95-108); CREATININE 0.7 mg/dL (0.5-1.0); GFR > 60 ML/MIN (>=60 (CALC)); GFR FOR AFR.AMER. > 60 ML/MIN (>=60 (CALC)); POTASSIUM 3.4 mmol/l (3.5-5.1); SGOT/AST 19 u/l (9-36); SODIUM 137 mmol/l (137-146); TOTAL PROTEIN 6.8 g/dL (6.3-8.2)
[2018-09-24 10:56] LABS: CARBON DIOXIDE 37 mmol/l (22-30)
--- NOTE | 2018-09-24 11:10 | NUR ---
URINE SAMPLE OBTAINED VIA STRAIGHT CATH, URINE NOTED TO BE CLEAR YELLOW. TOLERATED WELL. WILL CONTINUE TO MONITOR.
[2018-09-24 11:38] LABS: URINE BILIRUBIN - DIPSTICK NEGATIVE (NEGATIVE); URINE BLOOD DIPSTICK NEGATIVE (NEGATIVE); URINE COLOR YELLOW; URINE GLUCOSE - DIPSTICK NEGATIVE (NEGATIVE); URINE KETONE NEGATIVE (NEGATIVE); URINE LEUK ESTERASE NEGATIVE (NEGATIVE); URINE NITRITE - DIPSTICK NEGATIVE (Negative); URINE PH 7.5 (4.5-8.0); URINE PROTEIN - DIPSTICK NEGATIVE (NEG-TRACE); URINE SPECIFIC GRAVITY <=1.005; URINE UROBILINOGEN - DIPSTICK 0.2 E.U./dL (0.2)
[2018-09-24 11:40] LABS: BARBITURATES NEGATIVE (NEGATIVE); COCAINE NEGATIVE (NEGATIVE); METHADONE NEGATIVE (NEGATIVE); OXCYCODONE NEGATIVE (NEGATIVE); TETRAHYDROCANNABIONOL NEGATIVE (NEGATIVE); TRICYLIC ANTIDEPRESSANTS NEGATIVE (NEGATIVE)
--- NOTE | 2018-09-24 12:18 | NUR ---
WHEEZING NOTED TO BILATERAL LUNGS, PLACED ON BEDPAN.
--- NOTE | 2018-09-24 13:13 | NUR ---
REPORT GIVEN TO LAURA BOYD.
--- NOTE | 2018-09-24 13:21 | NUR ---
AT BEDSIDE TO DISCUSS RESULTS AND PLAN OF CARE.
--- NOTE | 2018-09-24 13:23 | NUR ---
PATIENT TRANSPORTED TO [facility] WITH TELE AND O2 IN PLACE. LAURA DENG AT BEDSIDE. CARE RELINQUISHED.
[2018-09-24 13:24] VITALS: BP 118/64
--- NOTE | 2018-09-24 13:24 | NUR ---
PT ADMITTED TO ROOM 272 FROM ED. PT TRANFFERRED FROM STRETCHER TO BED WITH ASSIST. ASSESSMENT COMPLETED, PT ALERT TO SELF AND PLACE. 18G TO LAC/SL FLUSHES WITHOUT DIFFICULTY. PT REPORT BURN TO L INNER THIGH CAUSED FROM DROPPING A MATCH WHILE TRYING TO LITE A CIGARETTE. PT ORIENTED TO ROOM, EQUIPMENT AND CALL LIGHT, GIVEN SANDWICH AND APPLESAUCE. BED IN LOWEST POSITION AND CALL LIGHT IN REACH. WILL MONITOR.
--- NOTE | 2018-09-24 15:00 | NUR ---
PT ASSISTED TO BSC, THEN BACK TO BED.
[2018-09-24 17:20] VITALS: BP 119/72
--- NOTE | 2018-09-24 19:03 | NUR ---
REPORT RECEIVED FROM LAURA DENG. PT RESTING IN BED WITH EYES CLOSED. SITTER PRESENT FOR PT SAFETY. NO S/S OF DISTRESS AT THIS TIME. WILL CONTINUE TO MONITOR.
--- NOTE | 2018-09-24 19:30 | NUR ---
PT RESTING IN BED ALERT AND ORIENTED. RESPIRATIONS SHALLOW, ON O2 @ 2L VIA NC. PT REPORTS FEELING SHORT OF BREATH, O2 STATS 91. WHEEZES NOTED IN UPPER LUNG GIRALDO, DIMINISHED THROUGH OUT. PT STATES HER LAST BM WAS TWO DAYS AGO. OFFERED TO BRING PT PRUNE JUICE, PT AGREED TO DRINK THE PRUNE JUICE. BED ALARM ACTIVE FOR PT SAFETY. SITTER PRESENT FOR PT SAFETY. WILL CONTINUE TO MONITOR.
[2018-09-24 19:40] VITALS: BP 137/70
--- NOTE | 2018-09-25 04:00 | NUR ---
PT RESTING IN BED WITH EYES CLOSED. VS OBTAINED. PT EASILY AROUSED, ALERT AND ORIENTED. NO S/S OF DISTRESS AT THIS TIME. SAFETY PRECAUTIONS IN PLACE. SIITER PRESENT AND BED ALARM ACTIVE FOR PT SAFETY. WILL CONTINUET TO MONITOR.
[2018-09-25 04:20] VITALS: BP 118/70
[2018-09-25 05:02] LABS: HEMATOCRIT 44.2 % (37.0-47.0); HEMOGLOBIN 13.7 g/dl (12.0-16.0); IMMATURE GRANULOCYTES 0.5 % (0.0-5.0); MEAN CELL VOLUME 86.7 fL CALC (80.0-100.0); MEAN CORPUSCULAR HGB 26.9 pG CALC (26.0-32.0); NEUT# 8.63 thou/uL (2.00-7.15); RED BLOOD COUNT 5.1 mill/uL (4.20-5.60); RED CELL DISTRI WIDTH 15.9 % (11.5-15.5)
[2018-09-25 05:08] LABS: ALBUMIN 3.2 g/dL (3.2-5.0); ALKALINE PHOSPHATASE 66 u/l (38-126); ANION GAP 8 (6-22 (CALC)); BILIRUBIN, TOTAL 0.3 mg/dL (0.0-1.4); BUN 10 mg/dL (8-23); BUN/CREATININE RATIO 16 (12-20 (CALC)); CARBON DIOXIDE 34 mmol/l (22-30); CHLORIDE 95 mmol/l (95-108); CREATININE 0.6 mg/dL (0.5-1.0); GFR > 60 ML/MIN (>=60 (CALC)); GFR FOR AFR.AMER. > 60 ML/MIN (>=60 (CALC)); LIPASE 15 u/l (23-300); MAGNESIUM 1.8 mg/dL (1.6-2.3); POTASSIUM 3.6 mmol/l (3.5-5.1); SGOT/AST 11 u/l (9-36); SODIUM 133 mmol/l (137-146); TOTAL PROTEIN 5.9 g/dL (6.3-8.2)
[2018-09-25 05:12] LABS: AMYLASE < 30 u/l (30-110)
--- NOTE | 2018-09-25 07:13 | NUR ---
REORT RECEIVED FROM NIGHT NURSE; PT APPEARS TO BE SLEEPING WITH EYES CLOSED; RESP EVEN AND UNLABORED; SITTER AT BEDSIDE.
[2018-09-25 07:55] VITALS: BP 121/76
--- NOTE | 2018-09-25 08:18 | NUR ---
PT LAYING IN BED AWAKE, ALERT X3: ASSESSMENT COMPLETED; RESP SHALLOW ON 02@2L NC; TELE IN PLACE; #18G TO LAC, FLUSHED WELL , SITE APPEARS HEALTHY; PURPLISH COLOR NOTED TO LOWER LIP; BURN SPOT NOTED TO LT INNER THIGH; PT STATED SHE GOT BURNT FROM LIGHTING A CIGARETTE; ASSISTED TO SITTING POSITION FOR BREAKFAST; REFUSING A SHOWER; AM MEDS ADMINISTERED; SITTER AT BEDSIDE; SAFETY PRECAUTION REINFORCE; WILL CONTINUE TO MONITOR.
--- NOTE | 2018-09-25 11:48 | NUR ---
PT SITTING UP ON EDGE OF BED EATING LUNCH; C/O LEG PAIN; BILAT LEGS EDEMATOUS; ELEVATED ON PILLOW; SITTER AT BEDSDIE; DR WASHINGTON AT BEDSIDE TO DISCUSS POC, AWARE OF PAIN;
--- NOTE | 2018-09-25 13:34 | NUR ---
PT HAD A SHOWER NOW SITTING UP IN RECLINER WITH LEGS ELEVATED; [id number] INFUSING, IV SITE APPEARS HEALTHY; CALL CARTER IN REACH; SITTER AT BEDSIDE.
--- NOTE | 2018-09-25 15:52 | NUR ---
ER SAYS PT IN A FLUTTER; PT SITTING UP IN RECLINER WITH LEGS ELEVATED; ELECTRIC MOTOR MECHANIC AT BEDSIDE TO OBTAIN VITALS; NO S/S OF DISTRESS NOTED; BED ALARM ACTIVE; CALL CARTER IN REACH.
[2018-09-25 16:55] VITALS: BP 120/82
--- NOTE | 2018-09-25 17:32 | NUR ---
PT REMAIN SITTING UP IN RECLINER, NOW EATING SUPPER; RES EVEN AND UNLABORED ON ROOM AIR; BED ALARM ACTIVE; CALL CARTER IN REACH; NO S/S OF DISTRESS OR CONFUSION NOTED; WILL CONTINUE TO MONITOR.
--- NOTE | 2018-09-25 17:50 | NUR ---
PT CALLED AT THE DESK USING HER CELL PHONE, STATED SHE'S FEELS WELL ENOUGH TO GO HOME; MAIL SORTER AND DELIVERY ADVISE PT SHE'S NOT WELL ENOUGH TO GO HOME, STILL ON ANTIBOTICS, WILL BE IN TOMORROW AND THEN WILL DECIDE IF SHE'S WELL ENOUGH FOR HOME; PT AGREED; OFFERED TO WALK PT IN THE HALLS WITH ASSIST, BUT DECLINED; ATE 100% OF SUPPER. BED ALARM REMAIN ACTIVE; CALL CATRER IN REACH.
--- NOTE | 2018-09-25 19:00 | NUR ---
REPORT RECEIVED FROM RG VARELA. PT RESTING IN RECLINER AT BEDSIDE TALKING ON THE PHONE. RESPIRATIONS SHALLOW ON RA, WITH O2 @ 2L VIA NC AT BEDSIDE, PT REMOVED. NO S/S OF DISTRESS AT THIS TIME SAFETY PRECAUTIONS IN PLACE. WILL CONTINUE TO MONITOR.
[2018-09-25 19:05] VITALS: BP 128/64
--- NOTE | 2018-09-25 19:30 | NUR ---
PT RESTING IN RECLINER. ALERT AND ORIENTED. PT IN A PLEASANT MOOD MAKING JOKES. RESPIRATIONS SHALLOW ON RA. PT STATES "I TOOK THE O2 OFF BECAUSE MY ITS HURTING MY NOSE, I BURNT MY NOSE TRYING TO LIGHT A CIGARET WITH A MATCH AT HOME". SORE NOTED ON PT NOSE. PT STATED SHE WILL PUT O2 BACK ON WHEN SHE GETS IN BED FOR THE NIGHT. SAFETY PRECAUTIONS IN PLACE. ALARM ATTACHED TO PT GOWN FOR SAFETY. WILL CONTINUE TO MONITOR.
--- NOTE | 2018-09-25 20:00 | NUR ---
ASSISTED PT INTO BED FROM RECLINER. PROVIDED PT WITH PRUNE JUICE PER REQUEST. ASSISTED PT TO PUT O2 @ 2L VIA NC BACK ON. PT DENIES ANY FURTHER NEEDS AT THIS TIME.
--- NOTE | 2018-09-25 23:05 | NUR ---
PT RESTING IN BED, WITH EYES CLOSED. RESPIRATIONS SHALLOW ON O2 @ 2L VIA NC. NO S/S OF DISTRESS AT THIS TIME. WILL CONTINUE TO MONITOR.
[2018-09-26] VITALS (7 sets, daily range): BP systolic 97–122; BP diastolic 49–69
--- NOTE | 2018-09-26 03:02 | NUR ---
PT RESTING IN BED WITH EYES CLOSED. NO SIGNS OR SYMPTOMS OF DISTRESS AT THIS TIME. SITTER PRESENT AT BEDSIDE. WILL CONTINUE TO MONITOR.
[2018-09-26 05:20] LABS: HEMOGLOBIN 13.2 g/dl (12.0-16.0); IMMATURE GRANULOCYTES 0.6 % (0.0-5.0); MEAN CELL VOLUME 85.5 fL CALC (80.0-100.0); MEAN CORPUSCULAR HGB 26.9 pG CALC (26.0-32.0); MEAN CORPUSCULAR HGB CONC 31.4 g/L CALC (32.0-36.0); NEUT# 11.98 thou/uL (2.00-7.15); RED BLOOD COUNT 4.91 mill/uL (4.20-5.60)
[2018-09-26 05:53] LABS: ALKALINE PHOSPHATASE 62 u/l (38-126); ANION GAP 8 (6-22 (CALC)); BILIRUBIN, TOTAL 0.2 mg/dL (0.0-1.4); BUN 13 mg/dL (8-23); BUN/CREATININE RATIO 22 (12-20 (CALC)); CARBON DIOXIDE 33 mmol/l (22-30); CHLORIDE 96 mmol/l (95-108); CREATININE 0.6 mg/dL (0.5-1.0); GFR > 60 ML/MIN (>=60 (CALC)); GFR FOR AFR.AMER. > 60 ML/MIN (>=60 (CALC)); MAGNESIUM 1.8 mg/dL (1.6-2.3); POTASSIUM 3.8 mmol/l (3.5-5.1); SGOT/AST 11 u/l (9-36); SODIUM 134 mmol/l (137-146); TOTAL PROTEIN 5.7 g/dL (6.3-8.2)
--- NOTE | 2018-09-26 07:00 | NUR ---
REPORT RECEIVED FROM LAURA MURILLO;PT APPEARS TO BE SLEEPING IN SUPINE POSITION WITH DIVYA HARDING AT BEDSIDE SITTER;RESPIRATIONS EVEN AND UNLABORED ON O2 @ 2L VIA NC;NO S/S OF DISTRESS NOTED;TELE MONITORING IN PLACE;ALL SAFETY PRECAUTIONS NOTED WITH BED IN THE LOWEST POSITION AND CALL LIGHT IN REACH;WILL CONTINUE TO MONITOR
--- NOTE | 2018-09-26 08:05 | NUR ---
PT RESTING IN SUPINE POSITION WITH DIVYA HARDING AT BEDSIDE SITTER;PT A&O X3 WITH SLIGHT FORGETFULNESS NOTED AT TIMES, EASILY RE-ORIENTED;ASSESSMENT COMPLETED;PT DENIES ANY CURRENT PAIN OR DISCOMFORTS,PAIN SCALE AND REPORTING EDUCATED;RESPIRATIONS EVEN AND UNLABORED,SHALLOW ON O2 @ 2L VIA NC;ABDOMEN SOFT ON PALPATION AND ACTIVE IN ALL 4 QUADRANTS;STRONG PEDAL PULSES;GENERALIZED BRUISING NOTED THROUGHOUT AND MULTIPLE SCABBED OVER BURN PARKER ON NOSE,EAR AND THIGH FROM "CIGARETTE BURN";EMS #18G TO LAC FLUSHED AND PATENT,SITE APPEARS HEALTHY;TELE MONITOR IN PLACE;TRACE EDEMA NOTED TO BLE,ENCOURAGED ELEVATION OF BLE;ALL SAFETY PRECAUTIONS REINFORCED WITH BED ALARM ON FOR SAFETY;CALL LIGHT IN REACH;WILL CONTINUE TO MONITOR
--- NOTE | 2018-09-26 11:15 | NUR ---
PT RESTING IN SEMI FOWLERS POSITION WITH SITTER AT BEDSIDE;RESPIRATIONS EVEN AND UNLABORED ON O2 @ 2L VIA NC;PT DENIES ANY CURRENT PAIN AND EXPRESSES EAGERNESS TO BE DISCHARGED HOME;TELE MONITORING IN PLACE;IV SITE TO LAC REMAINS PATENT;PT ENCOURAGED TO CALL FOR ASSISTANCE IF NEEDED;BED ALARM REMAINS ON FOR PT SAFETY;CALL LIGHT IN REACH;WILL CONTINUE TO MONITOR
--- NOTE | 2018-09-26 12:40 | NUR ---
SPOKE WITH REGARDING ORDER FOR SITTER.RBVO TO D/C SITTER ORDER RECEIVED AT THIS TIME.
--- NOTE | 2018-09-26 12:49 | NUR ---
AT BEDSIDE DISCUSSING POC WITH PT.
--- NOTE | 2018-09-26 14:22 | NUR ---
PHYSICAL THERAPY AT BEDSIDE.
--- NOTE | 2018-09-26 16:10 | NUR ---
PT AMBULATING HALLWAYS WITH CATESHIA,HEAD OF MARKETING AND A STEADY GAIT;RESPIRATIONS EVEN AND UNLABORED ON RA;PT DENIES ANY CURRENT PAIN OR NEEDS;IV SITE PATENT;TELE MONITORING IN PLACE;PT DENIES ANY ADDITIONAL NEEDS AT THIS TIME AND IS ENCOURAGED TO CALL FOR ASSISTANCE IF NEEDED;CALL LIGHT IN REACH;WILL CONTINUE TO MONTIOR
--- NOTE | 2018-09-26 20:15 | NUR ---
PT. SITTING UP IN BED AND DENIES PAIN. ASSESSMENT COMPLETED AND UPDATED ON POC. NEURO CHECK COMPLETED AND REMAINS UNCHANGED.INSTRUCTED TO CALL FOR ANY AND ALL OOB NEEDS. PT. ASSISTED TO THE BATHROOM BY STUDENT NURSE. WILL CONTINUE TO MONITOR.
--- NOTE | 2018-09-26 21:25 | NUR ---
PT. MEDICATED WITH ORDERED TOPAMAX WELL PRN SONTATA PER PT'S REQUEST AND ORDER. DENIES FURTHER NEEDS. CALL LIGHT IS IN REACH.
--- NOTE | 2018-09-27 00:01 | NUR ---
NEURO CHECK COMPLETED AND NO CHANGE. DENIES NEEDS. CALL LIGHT IS IN REACH. WILL CONTINUE TO MONITOR.
--- NOTE | 2018-09-27 02:16 | NUR ---
PT. MEDICATED WITH SCHEDULED SOLU-MEDROL. DENIES NEEDS. CALL LIGHT IS IN REACH.
[2018-09-27 03:50] VITALS: BP 119/94
--- NOTE | 2018-09-27 04:00 | NUR ---
RESTING IN BED WITH EYES CLOSED. NO DISTRESS NOTED; DENIES NEEDS. CALL LIGHT IS IN REACH.
[2018-09-27 04:55] LABS: HEMATOCRIT 45.6 % (37.0-47.0); HEMOGLOBIN 14.4 g/dl (12.0-16.0); IMMATURE GRANULOCYTES 0.7 % (0.0-5.0); MEAN CELL VOLUME 85.6 fL CALC (80.0-100.0); MEAN CORPUSCULAR HGB CONC 31.6 g/L CALC (32.0-36.0); NEUT# 10.47 thou/uL (2.00-7.15); RED BLOOD COUNT 5.33 mill/uL (4.20-5.60); RED CELL DISTRI WIDTH 16.5 % (11.5-15.5)
[2018-09-27 05:00] VITALS: BP 117/45
[2018-09-27 05:18] LABS: ALBUMIN 3.5 g/dL (3.2-5.0); ALKALINE PHOSPHATASE 68 u/l (38-126); ANION GAP 11 (6-22 (CALC)); BUN 15 mg/dL (8-23); BUN/CREATININE RATIO 23 (12-20 (CALC)); CARBON DIOXIDE 31 mmol/l (22-30); CHLORIDE 99 mmol/l (95-108); CREATININE 0.7 mg/dL (0.5-1.0); GFR > 60 ML/MIN (>=60 (CALC)); GFR FOR AFR.AMER. > 60 ML/MIN (>=60 (CALC)); MAGNESIUM 1.9 mg/dL (1.6-2.3); POTASSIUM 4.1 mmol/l (3.5-5.1); SGOT/AST 12 u/l (9-36); SODIUM 137 mmol/l (137-146); TOTAL PROTEIN 6.3 g/dL (6.3-8.2)
[2018-09-27 05:19] LABS: BILIRUBIN, TOTAL 0.3 mg/dL (0.0-1.4)
--- NOTE | 2018-09-27 07:00 | NUR ---
REPORT RECEIVED FROM LAURA LIMA;PT APPEARS TO BE SLEEPING IN SEMI FOWLERS POSITION;RESPIRATIONS EVEN AND UNLABORED ON O2 @ 2L VIA NC;NO S/S OF DISTRESS NOTED;TELE MONITORING IN PLACE;ALL SAFETY PRECAUTIONS REINFORCED WITH BED IN THE LOWEST POSITION AND CALL LIGHT IN REACH;WILL CONTINUE TO MONITOR
[2018-09-27 07:49] VITALS: BP 124/76
--- NOTE | 2018-09-27 09:20 | NUR ---
PT RESTING IN SEMI FOWLERS POSITION,A&O X3;PT DENIES ANY CURRENT PAIN OR DISCOMFORTS,PAIN SCALE AND REPORTING EDUCATED;RESPIRATIONS EVEN AND UNLABORED ON O2 @ 2L VIA NC;ABDOMEN SOFT ON PALPATION AND ACTIVE IN ALL 4 QUADRANTS;STRONG PEDAL PULSES;GENERALIZED BRUISING NOTED,SKIN INTACT;#22G TO LEFT HAND FLUSHED AND PATENT,SITE APPEARS HEALTHY;TELE MONITORING IN PLACE;PT DENIES ANY ADDITIONAL NEEDS AT THIS TIME AND IS ENCOURAGED TO CALL FOR ASSISTANCE IF NEEDED;BED ALARM REMAINS ON FOR PT SAFETY,CALL LIGHT IN REACH;WILL CONTINUE TO MONITOR
--- NOTE | 2018-09-27 10:44 | NUR ---
Patient with improved AM Pac score to 14 She was seen this morning for transfers and ambualtion in donte. She perfromed ambulation on RA and had sats of 95% She had good breath control as well and was able to perform transfers and ambualtion with CGA of 1 with vitals stable. She was able to perform 2 minutes continuous ambualtion with vitals stable and FWW. She should do well with home health for energy conservation
--- NOTE | 2018-09-27 11:00 | NUR ---
AT BEDSIDE DISCUSSING POC INCLUDING DISCHARGE HOME WITH HOME HEALTH,PT VERBALIZES UNDERSTANDING.
[2018-09-27 11:15] VITALS: BP 142/64
--- NOTE | 2018-09-27 11:40 | NUR ---
PT OOB RESTING IN RECLINER;RESPIRATIONS EVEN AND UNLABORED ON RA;PT DENIES ANY CURRENT PAIN OR DISCOMFORTS;TELE MONITORING IN PLACE;IV SITE TO LEFT HAND PATENT;ASSESSMENT REMAINS UNCHANGED AT THIS TIME;AWAITING D/C ORDERS HOME;PT ENCOURAGED TO CALL FOR ASSISTANCE IF NEEDED;BED ALARM REMAINS ON FOR SAFETY;WILL CONTINUE TO MONITOR
[2018-09-27] MEDS ORDERED: DOXYCYCL HYC100 MG PO (11:49)
--- NOTE | 2018-09-27 12:45 | NUR ---
ALL DISCHARGE INSTRUCTIONS PROVIDED AT THIS TIME,QUESTIONS ANSWERED;PT ENCOURAGED TO HEAD OF INSIGHT [facility] FROM [facility];HOME HEALTH ORDER PROVIDED;IV SITE REMOVED WITH CATHETER INTACT;PT DENIES ANY ADDITIONAL NEEDS;WHEELCHAIR TO BE PROVIDED FOR D/C HOME;AWAITING FRIEND FOR TRANSPORTATION.
--- NOTE | 2018-09-27 12:56 | NUR ---
Discharge instructions given. Patient verbalizes understanding of same. Discharged in stable condition via Wheelchair to Home with friend. All belongings sent with pt. Pt discharged via wheelchair in stable conditon accompanied by africa lujan. Friend [facility] for transportation home.
== END 2018-09-27 12:56 | disposition home health service (06) | DRG 193 ==
LOC: ED 10:02 → ED-I 12:49 → ED 13:13 → MS2 13:14
PROVIDERS: Emergency Medicine; ADMIT Internal Medicine Nephrology; ATTEND Internal Medicine Nephrology
DX: J18.9 Pneumonia, unspecified organism (principal); G92 Toxic encephalopathy; J44.1 Chronic obstructive pulmonary disease with (acute) exacerbation; E87.4 Mixed disorder of acid-base balance; J44.0 Chronic obstructive pulmonary disease with (acute) lower respiratory infection; G93.1 Anoxic brain damage, not elsewhere classified; F17.200 Nicotine dependence, unspecified, uncomplicated; F31.9 Bipolar disorder, unspecified; T50.905A Adverse effect of unspecified drugs, medicaments and biological substances, initial encounter; R06.89 Other abnormalities of breathing; R09.02 Hypoxemia; E78.5 Hyperlipidemia, unspecified; I10 Essential (primary) hypertension; E11.9 Type 2 diabetes mellitus without complications; K21.9 Gastro-esophageal reflux disease without esophagitis; F41.0 Panic disorder [episodic paroxysmal anxiety]; Z87.440 Personal history of urinary (tract) infections
CPT/HCPCS: G0378; J1650; Q9967

== ENCOUNTER 2018-10-22 02:58 | Inpatient (IN) | payer MEDICARE, MEDICAID ==
[~2018-10-22] VITALS: Ht 157.5 cm; Wt 81.0 kg
[~2018-10-22 02:58] MED LIST changes: +DOXYCYCL HYC100 MG PO
[2018-10-22 03:35] LABS: HEMATOCRIT 46.5 % (37.0-47.0); HEMOGLOBIN 14.7 g/dl (12.0-16.0); IMMATURE GRANULOCYTES 0.4 % (0.0-5.0); MEAN CELL VOLUME 86.4 fL CALC (80.0-100.0); MEAN CORPUSCULAR HGB 27.3 pG CALC (26.0-32.0); MEAN CORPUSCULAR HGB CONC 31.6 g/L CALC (32.0-36.0); NEUT# 4.23 thou/uL (2.00-7.15); RED BLOOD COUNT 5.38 mill/uL (4.20-5.60); RED CELL DISTRI WIDTH 18.7 % (11.5-15.5)
[2018-10-22 03:40] LABS: ALBUMIN 3.3 g/dL (3.2-5.0); ALKALINE PHOSPHATASE 89 u/l (38-126); BUN 10 mg/dL (8-23); BUN/CREATININE RATIO 15 (12-20 (CALC)); CREATININE 0.7 mg/dL (0.5-1.0); GFR > 60 ML/MIN (>=60 (CALC)); GFR FOR AFR.AMER. > 60 ML/MIN (>=60 (CALC)); SGOT/AST 13 u/l (9-36); SODIUM 134 mmol/l (137-146); TOTAL PROTEIN 6.3 g/dL (6.3-8.2)
[2018-10-22 03:52] LABS: ANION GAP 11 (6-22 (CALC)); BILIRUBIN, TOTAL 0.5 mg/dL (0.0-1.4); CARBON DIOXIDE 40 mmol/l (22-30); CHLORIDE 86 mmol/l (95-108); MYOGLOBIN 33 ng/mL (0 - 62); POTASSIUM 2.8 mmol/l (3.5-5.1)
[2018-10-22 06:40] VITALS: BP 109/64
[2018-10-22 09:18] VITALS: BP 116/78
[2018-10-22 10:43] LABS: ANION GAP 14 (6-22 (CALC)); BUN 10 mg/dL (8-23); BUN/CREATININE RATIO 17 (12-20 (CALC)); CARBON DIOXIDE 36 mmol/l (22-30); CHLORIDE 85 mmol/l (95-108); CREATININE 0.6 mg/dL (0.5-1.0); GFR > 60 ML/MIN (>=60 (CALC)); GFR FOR AFR.AMER. > 60 ML/MIN (>=60 (CALC)); POTASSIUM 3.1 mmol/l (3.5-5.1); SODIUM 132 mmol/l (137-146)
[2018-10-22 11:04] VITALS: BP 106/73
[2018-10-22] MEDS ORDERED: ATORVASTATIN CA80 MG PO (11:05)
[2018-10-22] MEDS ORDERED: BL ASPIRIN325 MG PO (11:05)
[2018-10-22] MEDS ORDERED: CLONAZEPAM1 M1 PO (11:06)
[2018-10-22] MEDS ORDERED: ATROVENT H17 MCG/ACT IN (11:07)
[2018-10-22] MEDS ORDERED: FUROSEMIDE40 MG PO (11:08)
[2018-10-22] MEDS ORDERED: DIVALPROEX SOD500 M3 PO (11:08)
[2018-10-22] MEDS ORDERED: PANTOPRAZOLE SO40 M1 PO (11:09)
[2018-10-22] MEDS ORDERED: POTASSIUM CHLO10 MEQ PO (11:09)
[2018-10-22] MEDS ORDERED: RISPERIDONE1 MG PO (11:10)
[2018-10-22] MEDS ORDERED: TOPIRAMATE50 MG PO (11:11)
[2018-10-22] MEDS ORDERED: VENTOLIN HFA IN (11:12)
[2018-10-22 11:56] LABS: URINE BILIRUBIN - DIPSTICK SMALL (NEGATIVE); URINE BLOOD DIPSTICK NEGATIVE (NEGATIVE); URINE COLOR DK. YELLOW; URINE GLUCOSE - DIPSTICK NEGATIVE (NEGATIVE); URINE KETONE TRACE mg/dL (NEGATIVE); URINE LEUK ESTERASE TRACE (NEGATIVE); URINE NITRITE - DIPSTICK NEGATIVE (Negative); URINE PH 6.5 (4.5-8.0); URINE PROTEIN - DIPSTICK TRACE mg/dL (NEG-TRACE)
[2018-10-22 14:55] VITALS: BP 121/74
[2018-10-22 19:30] VITALS: BP 119/57
[2018-10-23 00:02] VITALS: BP 98/47
[2018-10-23 04:20] VITALS: BP 98/58
[2018-10-23 04:29] LABS: HEMATOCRIT 41.5 % (37.0-47.0); HEMOGLOBIN 13.3 g/dl (12.0-16.0); IMMATURE GRANULOCYTES 0.2 % (0.0-5.0); MEAN CELL VOLUME 86.5 fL CALC (80.0-100.0); MEAN CORPUSCULAR HGB 27.7 pG CALC (26.0-32.0); NEUT# 6.41 thou/uL (2.00-7.15); RED BLOOD COUNT 4.8 mill/uL (4.20-5.60); RED CELL DISTRI WIDTH 18.1 % (11.5-15.5)
[2018-10-23 04:45] LABS: ANION GAP 11 (6-22 (CALC)); BUN 9 mg/dL (8-23); BUN/CREATININE RATIO 14 (12-20 (CALC)); CARBON DIOXIDE 37 mmol/l (22-30); CHLORIDE 89 mmol/l (95-108); CREATININE 0.6 mg/dL (0.5-1.0); GFR > 60 ML/MIN (>=60 (CALC)); GFR FOR AFR.AMER. > 60 ML/MIN (>=60 (CALC)); POTASSIUM 3.3 mmol/l (3.5-5.1); SODIUM 133 mmol/l (137-146)
[2018-10-23 08:00] VITALS: BP 110/56
[2018-10-23] MEDS ORDERED: CYMBALTA30 MG PO (09:58)
[2018-10-23] MEDS ORDERED: SYMBICORT1 AE1 PO (10:01)
[2018-10-23] MEDS ORDERED: VITAMIN B-121000 MCG PO (10:02)
[2018-10-23 12:31] VITALS: BP 103/70
[2018-10-23 15:46] VITALS: BP 113/54
[2018-10-23 19:04] VITALS: BP 102/66
[2018-10-24] VITALS (7 sets, daily range): BP systolic 97–121; BP diastolic 45–75
[2018-10-25 00:25] VITALS: BP 112/59
[2018-10-25 04:29] VITALS: BP 107/62
[2018-10-25 05:47] LABS: HEMATOCRIT 45.5 % (37.0-47.0); HEMOGLOBIN 14.3 g/dl (12.0-16.0); IMMATURE GRANULOCYTES 0.7 % (0.0-5.0); MEAN CELL VOLUME 87.3 fL CALC (80.0-100.0); MEAN CORPUSCULAR HGB 27.4 pG CALC (26.0-32.0); MEAN CORPUSCULAR HGB CONC 31.4 g/L CALC (32.0-36.0); NEUT# 9.45 thou/uL (2.00-7.15); RED BLOOD COUNT 5.21 mill/uL (4.20-5.60); RED CELL DISTRI WIDTH 19.3 % (11.5-15.5)
[2018-10-25 06:04] LABS: ALBUMIN 3.1 g/dL (3.2-5.0); ALKALINE PHOSPHATASE 75 u/l (38-126); BILIRUBIN, TOTAL 0.3 mg/dL (0.0-1.4); BUN 13 mg/dL (8-23); BUN/CREATININE RATIO 19 (12-20 (CALC)); CARBON DIOXIDE 33 mmol/l (22-30); CHLORIDE 95 mmol/l (95-108); CREATININE 0.7 mg/dL (0.5-1.0); GFR > 60 ML/MIN (>=60 (CALC)); GFR FOR AFR.AMER. > 60 ML/MIN (>=60 (CALC)); SGOT/AST 10 u/l (9-36); SODIUM 135 mmol/l (137-146); TOTAL PROTEIN 5.8 g/dL (6.3-8.2)
[2018-10-25 06:06] LABS: ANION GAP 12 (6-22 (CALC)); POTASSIUM 4.5 mmol/l (3.5-5.1)
[2018-10-25 09:08] VITALS: BP 144/79
[2018-10-25 11:25] VITALS: BP 109/59
[2018-10-25 16:00] VITALS: BP 115/62
[2018-10-25 19:15] VITALS: BP 114/69
[2018-10-26 00:08] VITALS: BP 122/71
[2018-10-26 03:52] VITALS: BP 116/68
[2018-10-26 08:05] VITALS: BP 125/56
[2018-10-26 11:00] VITALS: BP 112/64
[2018-10-26 16:00] VITALS: BP 116/48
[2018-10-26 19:00] VITALS: BP 120/51
[2018-10-27 00:18] VITALS: BP 100/56
[2018-10-27 03:50] VITALS: BP 109/48
[2018-10-27 08:12] VITALS: BP 100/45
[2018-10-27 11:25] VITALS: BP 109/60
[2018-10-27] MEDS ORDERED: DOXYCYCL HYC100 MG PO (11:29)
[2018-10-27] MEDS ORDERED: MEDDOSEPAK PO (11:29)
== END 2018-10-27 15:58 | DRG 190 ==
LOC: ED 02:58 → ED-I 05:31 → ED 06:06 → MS2 06:07
PROVIDERS: Emergency Medicine; Internal Medicine Nephrology; Nurse Practitioner Family; ADMIT Internal Medicine; ATTEND Internal Medicine
DX: J43.9 Emphysema, unspecified (principal); G92 Toxic encephalopathy; E87.2 Acidosis; G93.1 Anoxic brain damage, not elsewhere classified; E22.2 Syndrome of inappropriate secretion of antidiuretic hormone; J20.9 Acute bronchitis, unspecified; T42.75XA Adverse effect of unspecified antiepileptic and sedative-hypnotic drugs, initial encounter; E87.6 Hypokalemia; T50.2X5A Adverse effect of carbonic-anhydrase inhibitors, benzothiadiazides and other diuretics, initial encounter; F31.9 Bipolar disorder, unspecified; I10 Essential (primary) hypertension; E78.5 Hyperlipidemia, unspecified; F41.0 Panic disorder [episodic paroxysmal anxiety]; K21.9 Gastro-esophageal reflux disease without esophagitis; F17.210 Nicotine dependence, cigarettes, uncomplicated; M62.81 Muscle weakness (generalized); R06.89 Other abnormalities of breathing; R09.02 Hypoxemia; R60.0 Localized edema; M54.5 Low back pain
CPT/HCPCS: G0378; J1650; J3370

== ENCOUNTER 2018-10-29 20:14 | Observation (INO) | payer MEDICARE, MEDICAID ==
[~2018-10-29] VITALS: Ht 157.5 cm; Wt 82.9 kg
[~2018-10-29 20:14] MED LIST changes: +ATORVASTATIN CA80 MG PO; +ATROVENT H17 MCG/ACT IN; +BL ASPIRIN325 MG PO; +CLONAZEPAM1 M1 PO; +CYMBALTA30 MG PO; +DIVALPROEX SOD500 M3 PO; +FUROSEMIDE40 MG PO; +PANTOPRAZOLE SO40 M1 PO; +POTASSIUM CHLO10 MEQ PO; +RISPERIDONE1 MG PO; +SYMBICORT1 AE1 PO; +TOPIRAMATE50 MG PO; +VITAMIN B-121000 MCG PO
--- NOTE | 2018-10-29 20:39 | NUR ---
PT TO ROOM VIA EMS. PT STATES THAT SHE HAS BEEN WEAK IN HER LEGS SINCE BEING DISCHARGED FROM THE HOSPITAL. PT STATES THAT SHE IS UNABLE TO GET HERSELF OUT OF A CHAIR, BUT CAN WALK ONCE SHES UP. PT IS DROWSY AND FALLS ASLEEP WHILE TALKING. PT IS AOX4. PT DENIES ANY SOB, NV, C/P . PT IS ON HOME 02 AT 3 LPM
[2018-10-29 20:48] LABS: HEMATOCRIT 43.9 % (37.0-47.0); HEMOGLOBIN 13.9 g/dl (12.0-16.0); IMMATURE GRANULOCYTES 0.8 % (0.0-5.0); MEAN CELL VOLUME 85.7 fL CALC (80.0-100.0); MEAN CORPUSCULAR HGB 27.1 pG CALC (26.0-32.0); MEAN CORPUSCULAR HGB CONC 31.7 g/L CALC (32.0-36.0); NEUT# 5.46 thou/uL (2.00-7.15); RED BLOOD COUNT 5.12 mill/uL (4.20-5.60); RED CELL DISTRI WIDTH 19.2 % (11.5-15.5)
[2018-10-29 21:24] LABS: ALBUMIN 2.9 g/dL (3.2-5.0); ALKALINE PHOSPHATASE 64 u/l (38-126); ANION GAP 11 (6-22 (CALC)); BUN 17 mg/dL (8-23); BUN/CREATININE RATIO 31 (12-20 (CALC)); CARBON DIOXIDE 31 mmol/l (22-30); CHLORIDE 97 mmol/l (95-108); CPK 125 u/l (30-165); CREATININE 0.6 mg/dL (0.5-1.0); GFR > 60 ML/MIN (>=60 (CALC)); GFR FOR AFR.AMER. > 60 ML/MIN (>=60 (CALC)); MAGNESIUM 1.9 mg/dL (1.6-2.3); POTASSIUM 4.1 mmol/l (3.5-5.1); SODIUM 135 mmol/l (137-146); TOTAL PROTEIN 5.6 g/dL (6.3-8.2)
--- NOTE | 2018-10-29 21:28 | NUR ---
PT RESTING ON STRETCHER, NO COMPLAINTS STATED AT THIS TIME.
[2018-10-29 21:31] LABS: BILIRUBIN, TOTAL 0.5 mg/dL (0.0-1.4); SGOT/AST 21 u/l (9-36)
[2018-10-29 21:38] LABS: MYOGLOBIN 30 ng/mL (0 - 62)
[2018-10-29 21:56] LABS: TSH, 3RD GENERATION 3.58 uIU/mL (0.47 - 4.68)
--- NOTE | 2018-10-29 21:56 | NUR ---
REPORT TO ANA SANCHEZ
--- NOTE | 2018-10-29 22:44 | NUR ---
STRAIGHT CATHED TO COLLECT URINE. PT HAD STOOL IN HER VAGINA. INCONTINENT PAD SATURATED WITH URINE.
[2018-10-29 22:58] LABS: URINE BILIRUBIN - DIPSTICK NEGATIVE (NEGATIVE); URINE BLOOD DIPSTICK NEGATIVE (NEGATIVE); URINE COLOR YELLOW; URINE GLUCOSE - DIPSTICK NEGATIVE (NEGATIVE); URINE KETONE NEGATIVE (NEGATIVE); URINE LEUK ESTERASE NEGATIVE (NEGATIVE); URINE NITRITE - DIPSTICK NEGATIVE (Negative); URINE PROTEIN - DIPSTICK NEGATIVE (NEG-TRACE); URINE SPECIFIC GRAVITY 1.025
--- NOTE | 2018-10-29 23:10 | NUR ---
PT TO BE ADMITTED FOR GENERAL WEAKNESS. ASKED PT WHAT MEDICATIONS SHE TOOK TONIGHT DUE TO LETHARGY AND PT STATED JUST HER REGULAR MEDICATION.
--- NOTE | 2018-10-29 23:59 | NUR ---
Admission Note Report Given to: LAURA VALDIVIA Transported by: Wheelchair X Stretcher Transported with: X Nurse Transporter X Patent IV O2 Servicer
[2018-10-30 00:05] VITALS: BP 117/58
--- NOTE | 2018-10-30 00:30 | NUR ---
RECEIVED REPORT FROM NURSE DRUMMOND, PATIENT TRANSPORTED VIA BED, LETHARGIC, ABLE TO ANSWER TO SPEECH, ALERT AND ORIENTED X 3, ORIENTED TO JASKARAN AND CALL LIGHT SYSTEM.
[2018-10-30 04:00] VITALS: BP 101/58
--- NOTE | 2018-10-30 06:02 | NUR ---
PATIENT RESTING IN BED WITH EYES CLOSED, EEVN UNLABORED BREATHING CALL LIGHT AT REACH, REMAINS ON BED ALARM.
--- NOTE | 2018-10-30 07:00 | NUR ---
REPORT RECEIVED FROM LAURA VALDIVIA;PT OOB RESTING IN RECLINER, DROWSY;INTRODUCED SELF TO PT AND POC DISCUSSED;PT DENIES ANY CURRENT PAIN OR DISCOMFORTS;RESPIRATIONS EVEN AND UNLABORED ON O2 @ 2L VIA NC;ALL SAFETY PRECAUTIONS REINFORCED;CONTACT PRECAUTIONS IN PLACE;PT ENCOURAGED TO CALL FOR ASSISTANCE IF NEEDED;CALL LIGHT IN REACH;WILL CONTINUE TO MONITOR
--- NOTE | 2018-10-30 08:20 | NUR ---
PT OOB RESTING IN RECLINER, A&O X2.DROWSY;VS OBTAINED AND ASSESSMENT COMPLETED;RESPIRATIONS EVEN AND UNLABORED ON O2 @ 2L VIA NC, CLEAR LUNG SOUNDS;NON-PRODUCTIVE COUGH NOTED;ABDOMEN SOFT ON PALPATION AND ACTIVE IN ALL 4 QUADRANTS;STRONG PEDAL PULSES;SKIN INTACT;EMS #20G TO LAC FLUSHED AND PATENT,SITE APPEARS HEALTHY;PT ON CONTACT PRECAUTIONS FOR HX OF ESBL;PT DENIES ANY ADDITIONAL NEEDS AT THIS TIME AND IS ENCOURAGED TO CALL FOR ASSISTANCE IF NEEDED;FALL PRECAUTIONS IN PLACE WITH CALL LIGHT IN REACH;WILL CONTINUE TO MONITOR
[2018-10-30 08:22] VITALS: BP 127/60
--- NOTE | 2018-10-30 11:25 | NUR ---
PT RESTING IN SEMI FOWLERS POSITION WITH VISITOR AT BEDSIDE; AT BEDSIDE DISCUSSING POC WITH PT INCLUDING D/C TO REHAB, PT VERBALIZES UNDERSTANDING;RESPIRATIONS EVEN AND UNLABORED ON RA;PT DENIES ANY CURRENT PAIN OR NEEDS;ENCOURAGED TO CALL FOR ASSISTANCE IF NEEDED;FALL PRECAUTIONS IN PLACE WITH CALL LIGHT IN REACH;WILL CONTINUE TO MONITOR
--- NOTE | 2018-10-30 12:38 | NUR ---
PT REPORTS LEFT SHOULDER PAIN RATING 7/10 ON THE PAIN SCALE AND REQUESTS PAIN MEDICATION;PT MEDICATED WITH PRN MOTRIN 800MG PO;WILL CONTINUE TO MONITOR FOR EFFECTIVENESS
--- NOTE | 2018-10-30 15:20 | NUR ---
PT RESTING IN SEMI FOWLERS POSITION COMPLETING BREATHING TREATMENT;RESPIRATIONS EVEN AND UNLABORED ON O2 @ 2L VIA NC;PT DENIES ANY CURRENT PAIN OR DISCOMFORTS;IV SITE TO LAC REMAINS PATENT;ASSESSMENT UNCHANGED AT THIS TIME;PT ENCOURAGED TO CALL FOR ASSISTANCE IF NEEDED;FALL PRECAUTIONS IN PLACE WITH CALL LIGHT IN REACH;WILL CONTINUE TO MONITOR
[2018-10-30 16:18] VITALS: BP 90/61
[2018-10-30 17:56] VITALS: BP 119/78
--- NOTE | 2018-10-30 19:00 | NUR ---
RECEIVED REPORT FROM LORRAINE PATIENT RESTING IN BED, ALERT AD ORIENTED, HOOKED TO O2 AT 2LPM VIA NC, EVEN UNLABORED BREATHING CALL LIGHT AT REACH.
[2018-10-30 19:17] VITALS: BP 102/64
--- NOTE | 2018-10-30 20:00 | NUR ---
PATIENT LAYING IN BED ALERT AND ORIENTED X 3, REMAINS ON O2 @ 2LPM VIA NC EVEN UNLABORED BREATHING, LAST BM 10/29, DENIES PAIN OR DISCOMFORTS AT THIS TIME, PATIENT AWARE OF THE PLAN TO GO TO REHAB AFTER FOR THERAPY, REMAINS ON CONTACT PRECAUTION FOR HX OF ESBL, REINFORCED TO CALL FOR ASSISTANCE DURING TRANSFER, CALL LIGHT AT REACH.
--- NOTE | 2018-10-31 | NUR ---
PATIENT RESTING IN BED, EYES CLOSED, INCONTINENT CARE PROVIDED, PATIENT CURRENTLY RESTING IN BED EYES CLOSED CALL LIGHT AT REACH.
[2018-10-31 03:46] VITALS: BP 108/67
--- NOTE | 2018-10-31 03:56 | NUR ---
PATIENT RESTING IN BED WITH EYES CLOSED NO DISCOMFORTS NOTED AT THIS TIME, CALL LIGHT AT REACH.
[2018-10-31 05:30] LABS: HEMATOCRIT 41.7 % (37.0-47.0); HEMOGLOBIN 13.1 g/dl (12.0-16.0); IMMATURE GRANULOCYTES 0.7 % (0.0-5.0); MEAN CELL VOLUME 87.2 fL CALC (80.0-100.0); MEAN CORPUSCULAR HGB 27.4 pG CALC (26.0-32.0); MEAN CORPUSCULAR HGB CONC 31.4 g/L CALC (32.0-36.0); NEUT# 6.13 thou/uL (2.00-7.15); RED BLOOD COUNT 4.78 mill/uL (4.20-5.60); RED CELL DISTRI WIDTH 19.1 % (11.5-15.5)
[2018-10-31 05:51] LABS: ALBUMIN 2.5 g/dL (3.2-5.0); ALKALINE PHOSPHATASE 57 u/l (38-126); ANION GAP 6 (6-22 (CALC)); BUN 13 mg/dL (8-23); BUN/CREATININE RATIO 25 (12-20 (CALC)); CARBON DIOXIDE 35 mmol/l (22-30); CHLORIDE 100 mmol/l (95-108); CREATININE 0.5 mg/dL (0.5-1.0); GFR > 60 ML/MIN (>=60 (CALC)); GFR FOR AFR.AMER. > 60 ML/MIN (>=60 (CALC)); MAGNESIUM 2.1 mg/dL (1.6-2.3); POTASSIUM 3.9 mmol/l (3.5-5.1); SGOT/AST 14 u/l (9-36); SODIUM 136 mmol/l (137-146); TOTAL PROTEIN 4.8 g/dL (6.3-8.2)
[2018-10-31 05:54] LABS: BILIRUBIN, TOTAL 0.8 mg/dL (0.0-1.4)
--- NOTE | 2018-10-31 07:00 | NUR ---
REPORT RECEIVED FROM LAURA VALDIVIA;PT APPEARS TO BE SLEEPING IN SUPINE POSITION;RESPIRATIONS APPEAR EVEN AND UNLABORED ON O2 @ 2L VIA NC;NO S/S OF DISTRESS NOTED;CONTACT PRECAUTIONS IN PLACE;FALL PRECAUTIONS NOTED WITH BED IN THE LOWEST POSITION AND CALL LIGHT IN REACH;WILL CONTINUE TO MONITOR
--- NOTE | 2018-10-31 08:40 | NUR ---
PT RESTING IN SEMI FOWLERS POSITION WATCHING TV, A&O X2;FLAT AFFECT NOTED;VS OBTAINED AND ASSESSMENT COMPLETED;PT DENIES ANY CURRENT PAIN OR DISCOMFORTS,PAIN SCALE AND REPORTING EDUCATED;RESPIRATIONS EVEN AND UNLABORED ON O2 @ 2L VIA NC,CLEAR LUNG SOUNDS;ABDOMEN SOFT ON PALPATION AND ACTIVE IN ALL 4 QUADRANTS;STRONG PEDAL PULSES;SKIN INTACT;#22G TO LAC FLUSHED AND PATENT,SITE APPEARS HEALTHY;PT REMAINS ON CONTACT PRECAUTIONS FOR HX OF ESBL;ALL SAFETY PRECAUTIONS REINFORCED AT THIS TIME;PT ENCOURAGED TO CALL FOR ASSISTANCE IF NEEDED;BED IN THE LOWEST POSITION WITH CALL LIGHT IN REACH;WILL CONTINUE TO MONITOR
[2018-10-31 08:41] VITALS: BP 108/52
--- NOTE | 2018-10-31 11:20 | NUR ---
PT OOB RESTING IN RECLINER WITH VISITORS AT BEDSIDE;RESPIRATIONS REMAIN EVEN AND UNLABORED ON O2 @ 2L VIA NC;PT DENIES ANY CURRENT PAIN OR DISCOMFORTS;IV SITE TO LAC REMAINS PATENT;CONTACT PRECAUTIONS IN PLACE;ASSESSMENT REMAINS UNCHANGED AT THIS TIME;PT INSTRUCTED TO CALL FOR ASSISTANCE IF NEEDED;FALL PRECAUTIONS IN PLACE WITH CALL LIGHT IN REACH;WILL CONTINUE TO MONITOR
--- NOTE | 2018-10-31 11:39 | NUR ---
HOME MEDICATION PROVIDED TO PHARMACY FOR VERIFICATION.
--- NOTE | 2018-10-31 11:45 | NUR ---
AT BEDSIDE DISCUSSING POC WITH PT INCLUDING DISCHARGE TO REHAB FACILITY, PT VERBALIZES UNDERSTANDING.CASE MANAGEMENT NOTIFIED OF POC.
--- NOTE | 2018-10-31 15:30 | NUR ---
PT RESTING IN SEMI FOWLERS POSITION;RESPIRATIONS EVEN AND UNLABORED ON O2 @ 2L VIA NC;PT DENIES ANY CURRENT PAIN;PT PROVIDED WITH PRUNE JUICE PER REQUEST;IV SITE TO LAC PATENT;PT INCONTINENT OF A LARGE AMOUNT OF CLEAR/YELLOW URINE, BUFFY CARE PROVIDED BY DUDE WRANGLER;ASSESSMENT REMAINS UNCHANGED AT THIS TIME;PT TO BE TRANSPORTED TO [facility] THIS EVENING AND VERBALIZES UNDERSTANDING;ENCOURAGED PT TO CALL FOR ASSISTANCE IF NEEDED;CALL LIGHT IN REACH;WILL CONTINUE TO MONITOR
[2018-10-31 15:42] VITALS: BP 114/71
[2018-10-31 18:56] VITALS: BP 117/63
--- NOTE | 2018-10-31 20:50 | NUR ---
ASSESSMENT COMPLETED. IV SITE PATENT AND SL. SPOKE WITH [facility] AND PER UNIT THEY WILL ACCEPT PT. NO MATTER THE TIME THROUGH OUT THE NIGHT WE ARE STILL AWAITING TRANSPORATION. PT. IS UPDATED WITH THIS INFORMATION WELL. PM MEDS GIVEN. ENCOURAGED TO CALL FOR ANY NEEDS. WILL CONTINUE TO MONITOR.
--- NOTE | 2018-10-31 23:39 | NUR ---
RESTING WITH EYES CLOSED; NO DISTRESS NOTED; RESP. EVEN AND UNLABORED. CALL LIGHT IS IN REACH.
--- NOTE | 2018-11-01 01:00 | NUR ---
REPORT GIVEN TO NURSE TALON. IV SITE REMOVED AND CATHETER TIP INTACT. PT. ASSISTED TO VOID AND MESCH PANTIES AND PAD WERE CHANGED. [facility] HERE AND PICKED UP PT. BELONGINGS ALONG WITH (NF) VALPORIC ACID.
== END 2018-11-01 01:00 ==
LOC: ED 20:14 → ED-I 22:55 → ED 23:08 → MS2 23:09
PROVIDERS: Family Medicine; Internal Medicine Nephrology; ADMIT Internal Medicine; ATTEND Internal Medicine
DX: M62.81 Muscle weakness (generalized) (principal); I10 Essential (primary) hypertension; J43.9 Emphysema, unspecified; E87.2 Acidosis; R06.89 Other abnormalities of breathing; E78.5 Hyperlipidemia, unspecified; F31.9 Bipolar disorder, unspecified; F41.0 Panic disorder [episodic paroxysmal anxiety]; K21.9 Gastro-esophageal reflux disease without esophagitis; F17.200 Nicotine dependence, unspecified, uncomplicated; Z99.81 Dependence on supplemental oxygen
CPT/HCPCS: J1650

== ENCOUNTER 2018-11-19 21:21 | Inpatient (IN) | payer MEDICARE, MEDICAID ==
[~2018-11-19] VITALS: Ht 157.5 cm; Wt 83.5 kg
[2018-11-19 22:16] LABS: HEMATOCRIT 44.2 % (37.0-47.0); HEMOGLOBIN 13.9 g/dl (12.0-16.0); IMMATURE GRANULOCYTES 0.4 % (0.0-5.0); MEAN CELL VOLUME 89.1 fL CALC (80.0-100.0); MEAN CORPUSCULAR HGB CONC 31.4 g/L CALC (32.0-36.0); NEUT# 6.66 thou/uL (2.00-7.15); RED BLOOD COUNT 4.96 mill/uL (4.20-5.60); RED CELL DISTRI WIDTH 20.1 % (11.5-15.5)
[2018-11-19 22:29] LABS: ALKALINE PHOSPHATASE 82 u/l (38-126); BILIRUBIN, TOTAL 0.5 mg/dL (0.0-1.4); BUN 11 mg/dL (8-23); BUN/CREATININE RATIO 21 (12-20 (CALC)); CHLORIDE 101 mmol/l (95-108); CREATININE 0.5 mg/dL (0.5-1.0); GFR > 60 ML/MIN (>=60 (CALC)); GFR FOR AFR.AMER. > 60 ML/MIN (>=60 (CALC)); POTASSIUM 3.2 mmol/l (3.5-5.1); SODIUM 138 mmol/l (137-146)
[2018-11-19 22:32] LABS: ALBUMIN 3.6 g/dL (3.2-5.0); ANION GAP 14 (6-22 (CALC)); CARBON DIOXIDE 26 mmol/l (22-30); TOTAL PROTEIN 6.7 g/dL (6.3-8.2)
[2018-11-19 22:33] LABS: SGOT/AST 36 u/l (9-36)
[2018-11-19 22:41] LABS: MYOGLOBIN 418 ng/mL (0 - 62)
[2018-11-19 23:58] LABS: URINE BILIRUBIN - DIPSTICK NEGATIVE (NEGATIVE); URINE BLOOD DIPSTICK MODERATE (NEGATIVE); URINE COLOR YELLOW; URINE GLUCOSE - DIPSTICK NEGATIVE (NEGATIVE); URINE KETONE 15 mg/dL (NEGATIVE); URINE LEUK ESTERASE SMALL (NEGATIVE); URINE NITRITE - DIPSTICK POSITIVE (Negative); URINE PROTEIN - DIPSTICK 100 mg/dL (NEG-TRACE); URINE SPECIFIC GRAVITY >=1.030
[2018-11-20] LABS: BARBITURATES NEGATIVE (NEGATIVE); COCAINE NEGATIVE (NEGATIVE); METHADONE NEGATIVE (NEGATIVE); TETRAHYDROCANNABIONOL NEGATIVE (NEGATIVE); TRICYLIC ANTIDEPRESSANTS NEGATIVE (NEGATIVE)
[2018-11-20 00:01] LABS: OXCYCODONE NEGATIVE (NEGATIVE)
[2018-11-20 00:03] LABS: URINE SQUAMOUS EPITHELIAL CELL FEW EPI/hpf (0-FEW); URINE WBC TNTC WBC/hpf (0-5)
[2018-11-20 00:04] LABS: URINE BACTERIA MANY hpf
[2018-11-20 04:23] VITALS: BP 109/56
[2018-11-20 08:04] VITALS: BP 121/76
[2018-11-20 16:18] VITALS: BP 109/67
[2018-11-20 20:19] VITALS: BP 120/78
[2018-11-21 04:13] VITALS: BP 111/63
[2018-11-21 06:12] LABS: ALKALINE PHOSPHATASE 57 u/l (38-126); ANION GAP 8 (6-22 (CALC)); BILIRUBIN, TOTAL 0.4 mg/dL (0.0-1.4); BUN 9 mg/dL (8-23); BUN/CREATININE RATIO 15 (12-20 (CALC)); CARBON DIOXIDE 30 mmol/l (22-30); CHLORIDE 108 mmol/l (95-108); CREATININE 0.6 mg/dL (0.5-1.0); GFR > 60 ML/MIN (>=60 (CALC)); GFR FOR AFR.AMER. > 60 ML/MIN (>=60 (CALC)); POTASSIUM 3.7 mmol/l (3.5-5.1); SGOT/AST 27 u/l (9-36); SODIUM 142 mmol/l (137-146)
[2018-11-21 06:14] LABS: ALBUMIN 2.6 g/dL (3.2-5.0); TOTAL PROTEIN 5.2 g/dL (6.3-8.2)
[2018-11-21 08:21] VITALS: BP 90/53
[2018-11-21 09:25] VITALS: BP 144/75
[2018-11-21 14:45] VITALS: BP 103/56
[2018-11-21 19:40] VITALS: BP 99/56
[2018-11-22 04:33] VITALS: BP 104/58
[2018-11-22 08:00] VITALS: BP 110/71
[2018-11-22 14:55] VITALS: BP 113/66
[2018-11-22] MEDS ORDERED: CLONAZEPAM1 M1 PO (16:27)
[2018-11-22] MEDS ORDERED: INVANZ1 GM IJ (16:27)
== END 2018-11-22 17:16 | DRG 690 ==
LOC: ED 21:21 → ED-I 11-20 02:30 → ED 11-20 02:57 → MS2 11-20 02:58
PROVIDERS: Emergency Medicine; ADMIT Internal Medicine; ATTEND Internal Medicine
PROC: 05HB33Z Insertion of Infusion Device into Right Basilic Vein, Percutaneous Approach (ICD-10-PCS; principal; 2018-11-22)
DX: N39.0 Urinary tract infection, site not specified (principal); G93.49 Other encephalopathy; J96.12 Chronic respiratory failure with hypercapnia; J96.11 Chronic respiratory failure with hypoxia; S00.83XA Contusion of other part of head, initial encounter; J43.9 Emphysema, unspecified; E78.5 Hyperlipidemia, unspecified; I10 Essential (primary) hypertension; F31.9 Bipolar disorder, unspecified; K21.9 Gastro-esophageal reflux disease without esophagitis; F17.200 Nicotine dependence, unspecified, uncomplicated; F41.8 Other specified anxiety disorders; B96.20 Unspecified Escherichia coli [E. coli] as the cause of diseases classified elsewhere; W18.30XA Fall on same level, unspecified, initial encounter; Y92.009 Unspecified place in unspecified non-institutional (private) residence as the place of occurrence of the external cause; Z16.12 Extended spectrum beta lactamase (ESBL) resistance; Z91.81 History of falling; Z99.81 Dependence on supplemental oxygen
CPT/HCPCS: G0378; J1335; J1650

== ENCOUNTER 2019-04-10 14:05 | Inpatient (IN) | payer MEDICARE, MEDICAID ==
[~2019-04-10] VITALS: Ht 160 cm; Wt 73.0 kg
[2019-04-10] VITALS (8 sets, daily range): BP systolic 102–117; BP diastolic 62–76
[2019-04-10 14:46] LABS: HEMATOCRIT 45.1 % (37.0-47.0); HEMOGLOBIN 13.8 g/dl (12.0-16.0); IMMATURE GRANULOCYTES 0.5 % (0.0-5.0); MEAN CELL VOLUME 92.6 fL CALC (80.0-100.0); MEAN CORPUSCULAR HGB 28.3 pG CALC (26.0-32.0); MEAN CORPUSCULAR HGB CONC 30.6 g/L CALC (32.0-36.0); NEUT# 5.89 thou/uL (2.00-7.15); RED BLOOD COUNT 4.87 mill/uL (4.20-5.60); RED CELL DISTRI WIDTH 17.9 % (11.5-15.5)
[2019-04-10 15:06] LABS: ALKALINE PHOSPHATASE 86 u/l (38-126); ANION GAP 8 (6-22 (CALC)); BILIRUBIN, TOTAL 0.6 mg/dL (0.0-1.4); BUN 11 mg/dL (8-23); BUN/CREATININE RATIO 25 (12-20 (CALC)); CARBON DIOXIDE 36 mmol/l (22-30); CHLORIDE 97 mmol/l (95-108); CREATININE 0.4 mg/dL (0.5-1.0); GFR > 60 ML/MIN (>=60 (CALC)); GFR FOR AFR.AMER. > 60 ML/MIN (>=60 (CALC)); POTASSIUM 4.9 mmol/l (3.5-5.1); SGOT/AST 13 u/l (9-36); SODIUM 136 mmol/l (137-146); TOTAL PROTEIN 6.2 g/dL (6.3-8.2)
[2019-04-11] VITALS (21 sets, daily range): BP systolic 91–119; BP diastolic 43–67
[2019-04-11 05:32] LABS: HEMOGLOBIN 13.8 g/dl (12.0-16.0); MEAN CELL VOLUME 91.6 fL CALC (80.0-100.0); MEAN CORPUSCULAR HGB 28.1 pG CALC (26.0-32.0); MEAN CORPUSCULAR HGB CONC 30.7 g/L CALC (32.0-36.0); RED BLOOD COUNT 4.91 mill/uL (4.20-5.60); RED CELL DISTRI WIDTH 17.2 % (11.5-15.5)
[2019-04-11 05:57] LABS: BUN 13 mg/dL (8-23); BUN/CREATININE RATIO 31 (12-20 (CALC)); CARBON DIOXIDE 32 mmol/l (22-30); CHLORIDE 98 mmol/l (95-108); CREATININE 0.4 mg/dL (0.5-1.0); GFR > 60 ML/MIN (>=60 (CALC)); GFR FOR AFR.AMER. > 60 ML/MIN (>=60 (CALC)); SODIUM 134 mmol/l (137-146)
[2019-04-11 06:07] LABS: ANION GAP 9 (6-22 (CALC)); POTASSIUM 5.4 mmol/l (3.5-5.1)
[2019-04-12] VITALS (8 sets, daily range): BP systolic 96–127; BP diastolic 53–61
[2019-04-12 01:00] LABS: URINE BILIRUBIN - DIPSTICK NEGATIVE (NEGATIVE); URINE BLOOD DIPSTICK NEGATIVE (NEGATIVE); URINE COLOR YELLOW; URINE GLUCOSE - DIPSTICK NEGATIVE (NEGATIVE); URINE KETONE NEGATIVE (NEGATIVE); URINE LEUK ESTERASE TRACE (NEGATIVE); URINE NITRITE - DIPSTICK NEGATIVE (Negative); URINE PROTEIN - DIPSTICK NEGATIVE (NEG-TRACE); URINE SPECIFIC GRAVITY <=1.005; URINE UROBILINOGEN - DIPSTICK 0.2 E.U./dL (0.2)
[2019-04-12 05:32] LABS: HEMATOCRIT 40.6 % (37.0-47.0); HEMOGLOBIN 12.5 g/dl (12.0-16.0); MEAN CELL VOLUME 90.6 fL CALC (80.0-100.0); MEAN CORPUSCULAR HGB 27.9 pG CALC (26.0-32.0); MEAN CORPUSCULAR HGB CONC 30.8 g/L CALC (32.0-36.0); RED BLOOD COUNT 4.48 mill/uL (4.20-5.60)
[2019-04-12 06:11] LABS: ANION GAP 10 (6-22 (CALC)); BUN 11 mg/dL (8-23); BUN/CREATININE RATIO 25 (12-20 (CALC)); CARBON DIOXIDE 31 mmol/l (22-30); CHLORIDE 99 mmol/l (95-108); CREATININE 0.4 mg/dL (0.5-1.0); GFR > 60 ML/MIN (>=60 (CALC)); GFR FOR AFR.AMER. > 60 ML/MIN (>=60 (CALC)); SODIUM 135 mmol/l (137-146)
[2019-04-12 06:26] LABS: POTASSIUM 5.2 mmol/l (3.5-5.1)
[2019-04-12] MEDS ORDERED: ZPAK PO (08:50)
[2019-04-12] MEDS ORDERED: PREDNISONE10 MG PO (08:51)
== END 2019-04-12 14:46 | DRG 189 ==
LOC: ED 14:05 → ED-I 16:06 → ED 16:17 → MS2 16:18 → ICU 22:08
PROVIDERS: Emergency Medicine; ADMIT Internal Medicine; ATTEND Internal Medicine
PROC: 5A09357 Assistance with Respiratory Ventilation, Less than 24 Consecutive Hours, Continuous Positive Airway Pressure (ICD-10-PCS; principal; 2019-04-10)
DX: J96.21 Acute and chronic respiratory failure with hypoxia (principal); J44.1 Chronic obstructive pulmonary disease with (acute) exacerbation; E87.2 Acidosis; J96.22 Acute and chronic respiratory failure with hypercapnia; Z99.81 Dependence on supplemental oxygen; F17.200 Nicotine dependence, unspecified, uncomplicated; I10 Essential (primary) hypertension; E78.5 Hyperlipidemia, unspecified; F41.0 Panic disorder [episodic paroxysmal anxiety]; F31.9 Bipolar disorder, unspecified; K21.9 Gastro-esophageal reflux disease without esophagitis; Z91.19 Patient's noncompliance with other medical treatment and regimen
CPT/HCPCS: J1650

== ENCOUNTER 2019-10-10 15:16 | Emergency (ER) | payer MEDICARE, MEDICAID ==
[~2019-10-10 15:16] MED LIST changes: +PREDNISONE10 MG PO; +ZPAK PO
[2019-10-10] MEDS ORDERED: KLONOPIN1 MG PO (15:53)
[2019-10-10 16:05] VITALS: BP 153/84
== END 2019-10-10 16:03 | disposition home or self-care (01) ==
LOC: ED 15:16
DX: F41.0 Panic disorder [episodic paroxysmal anxiety] (principal); F31.9 Bipolar disorder, unspecified; I10 Essential (primary) hypertension; F17.210 Nicotine dependence, cigarettes, uncomplicated

== ENCOUNTER 2019-10-19 18:44 | Emergency (ER) | payer MEDICARE, MEDICAID ==
[2019-10-19 20:22] VITALS: BP 118/66
[2019-10-19] MEDS ORDERED: PERCOCET 5/325M1 TAB PO (22:02)
== END 2019-10-19 20:30 | disposition home or self-care (01) ==
LOC: ED 18:44
PROC: 2W3RX1Z Immobilization of Left Lower Leg using Splint (ICD-10-PCS; principal; 2019-10-19)
DX: S82.62XA Displaced fracture of lateral malleolus of left fibula, initial encounter for closed fracture (principal); S52.502A Unspecified fracture of the lower end of left radius, initial encounter for closed fracture; I10 Essential (primary) hypertension; J44.9 Chronic obstructive pulmonary disease, unspecified; F17.210 Nicotine dependence, cigarettes, uncomplicated; W01.0XXA Fall on same level from slipping, tripping and stumbling without subsequent striking against object, initial encounter; Y92.009 Unspecified place in unspecified non-institutional (private) residence as the place of occurrence of the external cause

== ENCOUNTER 2019-11-10 09:56 | Emergency (ER) | payer MEDICARE, MEDICAID ==
[~2019-11-10] VITALS: Ht 160 cm; Wt 70.0 kg
[2019-11-10 10:45] LABS: HEMATOCRIT 45.7 % (37.0-47.0); HEMOGLOBIN 14.5 g/dl (12.0-16.0); IMMATURE GRANULOCYTES 0.3 % (0.0-5.0); MEAN CELL VOLUME 92.1 fL CALC (80.0-100.0); MEAN CORPUSCULAR HGB 29.2 pG CALC (26.0-32.0); MEAN CORPUSCULAR HGB CONC 31.7 g/dL CAL (32.0-36.0); NEUT# 7.44 thou/uL (2.00-7.15); RED BLOOD COUNT 4.96 mill/uL (4.20-5.60); RED CELL DISTRI WIDTH 15.9 % (11.5-15.5)
[2019-11-10 11:03] LABS: ALBUMIN 3.3 g/dL (3.2-5.0); ALKALINE PHOSPHATASE 94 u/l (38-126); AMYLASE 41 u/l (30-110); ANION GAP 7 (6-22 (CALC)); BILIRUBIN, TOTAL 0.4 mg/dL (0.0-1.4); BUN 3 mg/dL (8-23); BUN/CREATININE RATIO 6 (12-20 (CALC)); CARBON DIOXIDE 29 mmol/l (22-30); CHLORIDE 99 mmol/l (95-108); CREATININE 0.5 mg/dL (0.5-1.0); GFR > 60 ML/MIN (>=60 (CALC)); GFR FOR AFR.AMER. > 60 ML/MIN (>=60 (CALC)); LIPASE 14 u/l (23-300); SGOT/AST 16 u/l (9-36); SODIUM 131 mmol/l (137-146); TOTAL PROTEIN 6.3 g/dL (6.3-8.2)
[2019-11-10 11:04] LABS: POTASSIUM 4.1 mmol/l (3.5-5.1)
[2019-11-10 12:43] LABS: URINE BILIRUBIN - DIPSTICK NEGATIVE (NEGATIVE); URINE BLOOD DIPSTICK NEGATIVE (NEGATIVE); URINE COLOR YELLOW; URINE GLUCOSE - DIPSTICK NEGATIVE (NEGATIVE); URINE KETONE NEGATIVE (NEGATIVE); URINE LEUK ESTERASE NEGATIVE (NEGATIVE); URINE NITRITE - DIPSTICK NEGATIVE (Negative); URINE PROTEIN - DIPSTICK NEGATIVE (NEG-TRACE); URINE UROBILINOGEN - DIPSTICK 0.2 E.U./dL (0.2)
[2019-11-10] MEDS ORDERED: MIRALAX3350 N1 PO ×2 (13:14)
[2019-11-10] MEDS ORDERED: ZOFRAN4 MG/TAB PO ×2 (13:14)
[2019-11-10 13:39] VITALS: BP 110/61
== END 2019-11-10 13:58 | disposition home or self-care (01) ==
LOC: ED 09:56
DX: R11.0 Nausea (principal); K59.00 Constipation, unspecified; N85.8 Other specified noninflammatory disorders of uterus; I10 Essential (primary) hypertension; J44.9 Chronic obstructive pulmonary disease, unspecified; F17.200 Nicotine dependence, unspecified, uncomplicated; Z20.828 Contact with and (suspected) exposure to other viral communicable diseases
CPT/HCPCS: Q9967

== ENCOUNTER 2019-11-25 14:43 | Emergency (ER) | payer MEDICARE, MEDICAID ==
[~2019-11-25] VITALS: Ht 160 cm; Wt 70.0 kg
[~2019-11-25 14:43] MED LIST changes: +MIRALAX3350 N1 PO
[2019-11-25 15:08] LABS: HEMATOCRIT 49.9 % (37.0-47.0); HEMOGLOBIN 15.5 g/dl (12.0-16.0); IMMATURE GRANULOCYTES 0.4 % (0.0-5.0); MEAN CELL VOLUME 92.9 fL CALC (80.0-100.0); MEAN CORPUSCULAR HGB 28.9 pG CALC (26.0-32.0); MEAN CORPUSCULAR HGB CONC 31.1 g/dL CAL (32.0-36.0); NEUT# 12.52 thou/uL (2.00-7.15); RED BLOOD COUNT 5.37 mill/uL (4.20-5.60)
[2019-11-25 15:23] LABS: ALBUMIN 3.2 g/dL (3.2-5.0); ALKALINE PHOSPHATASE 86 u/l (38-126); ANION GAP 7 (6-22 (CALC)); BUN 12 mg/dL (8-23); BUN/CREATININE RATIO 33 (12-20 (CALC)); CARBON DIOXIDE 29 mmol/l (22-30); CHLORIDE 101 mmol/l (95-108); CREATININE 0.4 mg/dL (0.5-1.0); GFR > 60 ML/MIN (>=60 (CALC)); GFR FOR AFR.AMER. > 60 ML/MIN (>=60 (CALC)); POTASSIUM 4.9 mmol/l (3.5-5.1); SODIUM 132 mmol/l (137-146); TOTAL PROTEIN 6.6 g/dL (6.3-8.2)
[2019-11-25 15:24] LABS: BILIRUBIN, TOTAL 0.6 mg/dL (0.0-1.4); SGOT/AST 33 u/l (9-36)
[2019-11-25 15:58] LABS: URINE BILIRUBIN - DIPSTICK NEGATIVE (NEGATIVE); URINE BLOOD DIPSTICK NEGATIVE (NEGATIVE); URINE COLOR YELLOW; URINE GLUCOSE - DIPSTICK NEGATIVE (NEGATIVE); URINE KETONE TRACE mg/dL (NEGATIVE); URINE LEUK ESTERASE NEGATIVE (NEGATIVE); URINE NITRITE - DIPSTICK NEGATIVE (Negative); URINE PH 6.5 (4.5-8.0); URINE PROTEIN - DIPSTICK NEGATIVE (NEG-TRACE); URINE SPECIFIC GRAVITY 1.025; URINE UROBILINOGEN - DIPSTICK 0.2 E.U./dL (0.2)
[2019-11-25 16:07] LABS: MYOGLOBIN 94 ng/mL (0 - 62)
[2019-11-25 16:24] LABS: ETHYL ALCOHOL 0 mg/dl (0-30)
--- NOTE | 2019-11-25 18:50 | NUR ---
PLACED ON BIPAP AFTER ABG RESULT.
[2019-11-25 21:15] VITALS: BP 120/63
== END 2019-11-25 21:15 | disposition short-term general hospital (02) ==
LOC: ED 14:43
PROVIDERS: Emergency Medicine
PROC: 0T9B70Z Drainage of Bladder with Drainage Device, Via Natural or Artificial Opening (ICD-10-PCS; principal; 2019-11-25)
DX: T40.2X1A Poisoning by other opioids, accidental (unintentional), initial encounter (principal); R41.82 Altered mental status, unspecified; R55 Syncope and collapse; I10 Essential (primary) hypertension; J44.9 Chronic obstructive pulmonary disease, unspecified; F17.200 Nicotine dependence, unspecified, uncomplicated; Z20.828 Contact with and (suspected) exposure to other viral communicable diseases

== ENCOUNTER 2020-01-05 07:55 | Emergency (ER) | payer MEDICARE, MEDICAID ==
[~2020-01-05] VITALS: Ht 160 cm; Wt 70.0 kg
[2020-01-05 08:30] LABS: HEMOGLOBIN 16.5 g/dl (12.0-16.0); IMMATURE GRANULOCYTES 0.2 % (0.0-5.0); MEAN CELL VOLUME 90.4 fL CALC (80.0-100.0); MEAN CORPUSCULAR HGB 28.2 pG CALC (26.0-32.0); MEAN CORPUSCULAR HGB CONC 31.1 g/dL CAL (32.0-36.0); NEUT# 5.94 thou/uL (2.00-7.15); RED BLOOD COUNT 5.86 mill/uL (4.20-5.60); RED CELL DISTRI WIDTH 18.2 % (11.5-15.5)
[2020-01-05 09:00] LABS: ALBUMIN 3.5 g/dL (3.2-5.0); ALKALINE PHOSPHATASE 88 u/l (38-126); AMYLASE 42 u/l (30-110); ANION GAP 10 (6-22 (CALC)); BUN 5 mg/dL (8-23); BUN/CREATININE RATIO 11 (12-20 (CALC)); CARBON DIOXIDE 28 mmol/l (22-30); CHLORIDE 103 mmol/l (95-108); CREATININE 0.5 mg/dL (0.5-1.0); GFR > 60 ML/MIN (>=60 (CALC)); GFR FOR AFR.AMER. > 60 ML/MIN (>=60 (CALC)); LIPASE 57 u/l (23-300); POTASSIUM 4.5 mmol/l (3.5-5.1); SGOT/AST 17 u/l (9-36); SODIUM 136 mmol/l (137-146); TOTAL PROTEIN 6.4 g/dL (6.3-8.2)
[2020-01-05 09:05] LABS: BILIRUBIN, TOTAL 0.6 mg/dL (0.0-1.4)
[2020-01-05 09:08] LABS: MYOGLOBIN 22 ng/mL (0 - 62)
[2020-01-05 09:30] LABS: URINE BLOOD DIPSTICK SMALL (NEGATIVE); URINE COLOR YELLOW; URINE GLUCOSE - DIPSTICK NEGATIVE (NEGATIVE); URINE KETONE TRACE mg/dL (NEGATIVE); URINE PROTEIN - DIPSTICK 30 mg/dL (NEG-TRACE)
[2020-01-05 09:31] LABS: URINE LEUK ESTERASE LARGE (NEGATIVE); URINE NITRITE - DIPSTICK POSITIVE (Negative)
[2020-01-05 09:32] LABS: URINE BILIRUBIN - DIPSTICK NEGATIVE (NEGATIVE)
[2020-01-05 09:35] LABS: URINE BACTERIA MODERATE hpf; URINE SQUAMOUS EPITHELIAL CELL FEW EPI/hpf (0-FEW); URINE WBC 50-100 WBC/hpf (0-5)
[2020-01-05] MEDS ORDERED: KEFLEX500 M1 PO ×4 (09:44→10:57)
[2020-01-05] MEDS ORDERED: ONDANSETRON4 MG PO ×4 (09:44→10:57)
[2020-01-05 10:32] VITALS: BP 128/68
== END 2020-01-05 10:55 | disposition home or self-care (01) ==
LOC: ED 07:55
PROVIDERS: Emergency Medicine
DX: N39.0 Urinary tract infection, site not specified (principal); I10 Essential (primary) hypertension; F31.9 Bipolar disorder, unspecified; J44.9 Chronic obstructive pulmonary disease, unspecified; F41.0 Panic disorder [episodic paroxysmal anxiety]; F17.200 Nicotine dependence, unspecified, uncomplicated; B96.20 Unspecified Escherichia coli [E. coli] as the cause of diseases classified elsewhere; Z16.12 Extended spectrum beta lactamase (ESBL) resistance

== ENCOUNTER 2020-01-08 14:02 | Emergency (ER) | payer MEDICARE, MEDICAID ==
[~2020-01-08] VITALS: Ht 160 cm; Wt 60.0 kg
[2020-01-08] MEDS ORDERED: ESCITALOPRAM OX10 MG PO (14:12)
[2020-01-08] MEDS ORDERED: DIVALPROEX SOD500 MG PO (14:12)
[2020-01-08] MEDS ORDERED: ATORVASTATIN CA10 MG PO (14:13)
[2020-01-08] MEDS ORDERED: ALPRAZOLAM0.5 M2 PO (14:14)
[2020-01-08 14:55] LABS: ANION GAP 10 (6-22 (CALC)); BUN 3 mg/dL (8-23); BUN/CREATININE RATIO 6 (12-20 (CALC)); CARBON DIOXIDE 27 mmol/l (22-30); CHLORIDE 102 mmol/l (95-108); CREATININE 0.5 mg/dL (0.5-1.0); GFR > 60 ML/MIN (>=60 (CALC)); GFR FOR AFR.AMER. > 60 ML/MIN (>=60 (CALC)); POTASSIUM 3.9 mmol/l (3.5-5.1); SODIUM 135 mmol/l (137-146)
[2020-01-08 14:58] LABS: HEMATOCRIT 50.8 % (37.0-47.0); IMMATURE GRANULOCYTES 0.5 % (0.0-5.0); MEAN CELL VOLUME 89.3 fL CALC (80.0-100.0); MEAN CORPUSCULAR HGB 28.1 pG CALC (26.0-32.0); MEAN CORPUSCULAR HGB CONC 31.5 g/dL CAL (32.0-36.0); NEUT# 6.64 thou/uL (2.00-7.15); RED BLOOD COUNT 5.69 mill/uL (4.20-5.60); RED CELL DISTRI WIDTH 17.2 % (11.5-15.5)
[2020-01-08 15:30] VITALS: BP 121/79
== END 2020-01-08 15:35 | disposition home or self-care (01) ==
LOC: ED 14:02
PROVIDERS: Family Medicine
DX: F41.9 Anxiety disorder, unspecified (principal); F31.9 Bipolar disorder, unspecified; I10 Essential (primary) hypertension; J44.9 Chronic obstructive pulmonary disease, unspecified; F17.200 Nicotine dependence, unspecified, uncomplicated; Z99.81 Dependence on supplemental oxygen
CPT/HCPCS: J2060

== ENCOUNTER 2020-01-28 15:12 | Emergency (ER) | payer MEDICARE, MEDICAID ==
[~2020-01-28] VITALS: Ht 160 cm; Wt 59.0 kg
[~2020-01-28 15:12] MED LIST changes: +ALPRAZOLAM0.5 M2 PO; +ATORVASTATIN CA10 MG PO; +DIVALPROEX SOD500 MG PO
[2020-01-28 15:35] LABS: HEMATOCRIT 49.2 % (37.0-47.0); HEMOGLOBIN 15.6 g/dl (12.0-16.0); IMMATURE GRANULOCYTES 0.3 % (0.0-5.0); MEAN CELL VOLUME 89.1 fL CALC (80.0-100.0); MEAN CORPUSCULAR HGB 28.3 pG CALC (26.0-32.0); MEAN CORPUSCULAR HGB CONC 31.7 g/dL CAL (32.0-36.0); NEUT# 6.49 thou/uL (2.00-7.15); RED BLOOD COUNT 5.52 mill/uL (4.20-5.60); RED CELL DISTRI WIDTH 17.6 % (11.5-15.5)
[2020-01-28 15:54] LABS: ALBUMIN 3.5 g/dL (3.2-5.0); ALKALINE PHOSPHATASE 74 u/l (38-126); ANION GAP 11 (6-22 (CALC)); BILIRUBIN, TOTAL 0.4 mg/dL (0.0-1.4); BUN 8 mg/dL (8-23); BUN/CREATININE RATIO 14 (12-20 (CALC)); CARBON DIOXIDE 25 mmol/l (22-30); CHLORIDE 101 mmol/l (95-108); CREATININE 0.5 mg/dL (0.5-1.0); GFR > 60 ML/MIN (>=60 (CALC)); GFR FOR AFR.AMER. > 60 ML/MIN (>=60 (CALC)); POTASSIUM 3.7 mmol/l (3.5-5.1); SGOT/AST 15 u/l (9-36); SODIUM 133 mmol/l (137-146); TOTAL PROTEIN 6.5 g/dL (6.3-8.2)
[2020-01-28 16:05] LABS: MYOGLOBIN 13 ng/mL (0 - 62)
[2020-01-28 16:21] LABS: URINE BILIRUBIN - DIPSTICK NEGATIVE (NEGATIVE); URINE BLOOD DIPSTICK NEGATIVE (NEGATIVE); URINE COLOR YELLOW; URINE GLUCOSE - DIPSTICK NEGATIVE (NEGATIVE); URINE KETONE TRACE mg/dL (NEGATIVE); URINE LEUK ESTERASE NEGATIVE (NEGATIVE); URINE NITRITE - DIPSTICK NEGATIVE (Negative); URINE PROTEIN - DIPSTICK NEGATIVE (NEG-TRACE); URINE UROBILINOGEN - DIPSTICK 0.2 E.U./dL (0.2)
[2020-01-28] MEDS ORDERED: ATIVAN0.5 MG PO (16:59)
[2020-01-28] MEDS ORDERED: ONDANSETRON4 MG PO (17:01)
[2020-01-28 17:02] VITALS: BP 140/71
== END 2020-01-28 17:18 | disposition home or self-care (01) ==
LOC: ED 15:12
PROVIDERS: Emergency Medicine
DX: F41.9 Anxiety disorder, unspecified (principal); F31.9 Bipolar disorder, unspecified; I10 Essential (primary) hypertension; F17.200 Nicotine dependence, unspecified, uncomplicated; Z87.440 Personal history of urinary (tract) infections

== ENCOUNTER 2020-01-29 17:27 | Emergency (ER) | payer MEDICARE, MEDICAID ==
[~2020-01-29] VITALS: Ht 160 cm; Wt 65.0 kg
[~2020-01-29 17:27] MED LIST changes: +ATIVAN0.5 MG PO
[2020-01-29 18:27] VITALS: BP 107/74
== END 2020-01-29 18:27 | disposition home or self-care (01) ==
LOC: ED 17:27
DX: F41.9 Anxiety disorder, unspecified (principal); T43.506A Underdosing of unspecified antipsychotics and neuroleptics, initial encounter; Z91.120 Patient's intentional underdosing of medication regimen due to financial hardship; I10 Essential (primary) hypertension; F31.9 Bipolar disorder, unspecified; J44.9 Chronic obstructive pulmonary disease, unspecified; F17.200 Nicotine dependence, unspecified, uncomplicated

== ENCOUNTER 2020-06-03 12:55 | Emergency (ER) | payer MEDICARE, MEDICAID ==
[~2020-06-03] VITALS: Ht 160 cm; Wt 75.0 kg
[2020-06-03] MEDS ORDERED: ATIVAN0.5 MG PO (14:00)
[2020-06-03 14:30] VITALS: BP 135/77
== END 2020-06-03 14:38 | disposition home or self-care (01) ==
LOC: ED 12:55
DX: Z76.0 Encounter for issue of repeat prescription (principal); F41.0 Panic disorder [episodic paroxysmal anxiety]; I10 Essential (primary) hypertension; F31.9 Bipolar disorder, unspecified; J44.9 Chronic obstructive pulmonary disease, unspecified; F17.200 Nicotine dependence, unspecified, uncomplicated

== ENCOUNTER 2021-01-20 05:03 | Inpatient (IN) | payer MEDICARE, MEDICAID ==
[~2021-01-20] VITALS: Ht 160 cm; Wt 90.0 kg
[2021-01-20] VITALS (10 sets, daily range): BP systolic 81–105; BP diastolic 44–60
[~2021-01-20 05:03] MED LIST changes: +DEPAKOTE ER500 MG PO; -DIVALPROEX SOD500 MG PO
[2021-01-20 05:53] LABS: IMMATURE GRANULOCYTES 0.4 % (0.0-5.0); MEAN CORPUSCULAR HGB 30.8 pG CALC (26.0-32.0); MEAN CORPUSCULAR HGB CONC 30.1 g/dL CAL (32.0-36.0); NEUT# 13.61 thou/uL (2.00-7.15); RED BLOOD COUNT 4.22 mill/uL (4.20-5.60); RED CELL DISTRI WIDTH 15.3 % (11.5-15.5)
[2021-01-20 06:05] LABS: ETHYL ALCOHOL 0 mg/dl (0-30)
[2021-01-20 06:07] LABS: ALKALINE PHOSPHATASE 103 u/l (38-126); BILIRUBIN, TOTAL 0.3 mg/dL (0.0-1.4); BUN 10 mg/dL (8-23); BUN/CREATININE RATIO 11 (12-20 (CALC)); CHLORIDE 93 mmol/l (95-108); CREATININE 0.9 mg/dL (0.5-1.0); GFR > 60 ML/MIN (>=60 (CALC)); GFR FOR AFR.AMER. > 60 ML/MIN (>=60 (CALC)); SGOT/AST 19 u/l (9-36); SODIUM 131 mmol/l (137-146)
[2021-01-20 06:08] LABS: ANION GAP 8 (6-22 (CALC)); CARBON DIOXIDE 35 mmol/l (22-30); POTASSIUM 4.5 mmol/l (3.5-5.1)
[2021-01-20 06:12] LABS: HEMATOCRIT 43.2 % (37.0-47.0); MEAN CELL VOLUME 102.4 fL CALC (80.0-100.0)
[2021-01-20 06:18] LABS: MYOGLOBIN 47 ng/mL (0 - 62)
--- NOTE | 2021-01-20 07:15 | NUR ---
RECIEVED REPORT FROM DANY SANCHEZ
--- NOTE | 2021-01-20 11:41 | NUR ---
PT EXTREMELY NON COMPLIANT AND REFUSING TO WEAR OXYGEN BIPAP, NC PLACED BACK ON PT AND CALLED RT.
--- NOTE | 2021-01-20 11:47 | NUR ---
RT CAME DOWN, PT REFUSING STILL TO GO ON BIPAP, STATES " I WOULD RATHER THAN WEAR THAT THING" PT ON 10L NC TO ACCOMODATE
--- NOTE | 2021-01-20 11:57 | NUR ---
PUT PT ON OXYMASK, PT TOLERATING WELL
--- NOTE | 2021-01-20 17:04 | NUR ---
GAVE REPORT TO MINA RN, PT NOW ON BIPAP DUE TO BECOMING MORE ALERT AND TOLERATING IT NOW, OXYGEN 98% ROOM BEING CLEANED IN ICU FOR PT, RT AT BEDSIDE WITH RN TO TALK TO PT ABOUT NEED TO KEEP BIPAP ON
--- NOTE | 2021-01-20 18:05 | NUR ---
PATIENT TO ICU BED 6 VIA STRETCHER ON BIPAP TRANSFERRED PATIENT BED X4 MAX ASSIST. PATIENT PLACED ON MONITOR. PATIENT REQUESTING BIPAP TO BE REMOVED EXPALINED THAT THE BIPAP WOULD NOT BE REMOVED AT THIS TIME DUYE TO CO2 LEVEL. AMINAH VERBALIZED UNDERSTANDING. OCONNOR PLACED USING STERILE TECHNIQUE IMMEDIATE RETURN OF URINE NOTED. SPECIMEN COLLECTED AND SENT TO LAB FOR REFERENCE. ORIENTED PATIENT TO ROOM AND UNIT. CALL LIGHT IN REACH. WILL CONTINUE TO MONITOR.
--- NOTE | 2021-01-20 18:25 | NUR ---
LAB AT BEDSIDE
[2021-01-20 18:38] LABS: URINE BILIRUBIN - DIPSTICK NEGATIVE (NEGATIVE); URINE BLOOD DIPSTICK NEGATIVE (NEGATIVE); URINE COLOR YELLOW; URINE GLUCOSE - DIPSTICK NEGATIVE (NEGATIVE); URINE KETONE NEGATIVE (NEGATIVE); URINE LEUK ESTERASE TRACE (NEGATIVE); URINE PROTEIN - DIPSTICK TRACE mg/dL (NEG-TRACE); URINE SPECIFIC GRAVITY >=1.030; URINE UROBILINOGEN - DIPSTICK 0.2 E.U./dL (0.2)
[2021-01-20 18:39] LABS: URINE NITRITE - DIPSTICK NEGATIVE (Negative)
--- NOTE | 2021-01-20 18:55 | NUR ---
RECEIVED REPORT FROM MINA SANCHEZ.
--- NOTE | 2021-01-20 19:15 | NUR ---
RT AT BEDSIDE WITH NEBULIZER TX. PATIENT IN NO ACUTE DISTRESS.
--- NOTE | 2021-01-20 20:00 | NUR ---
PATIENT AWAKE IN BED SEMI-FOWLERS POSITIN. BIPAP IN PLACE AT 60%. ON TRANSPORTATION MODELER. HR REGULAR. RESPIRATIONS SHALLOW. VAD S/L, FLUIDS INITIATED. VAD PATIENT WITH DRESSING CDI. DENIES PAIN. LARGE BRUISES NOTED ON ABDOMEN/TORSO. PATIENT STATES SHE HAD FALLEN RECENTLY. DENIES PAIN. DENIES SOB AT THIS TIME. ADMISSIN PAPERWORK COMPLETED. ASSESSMENT COMPLETED AND CHARTED. BED IN LOW POSITION. CALL LIGHT WITHIN REACH. BED ALARM ACTIVATED.
--- NOTE | 2021-01-20 21:30 | NUR ---
RT PUT OXYGEN MASK ON FOR PATIENT SO SHE COULD EAT DINNER. DINNER GIVEN. ASSISTED TO FEED DUE TO MASK. TOLERATED WELL. NO ACUTE DISTRESS NOTED.
--- NOTE | 2021-01-20 22:00 | NUR ---
PATIENT FINISHED EATING. RT AT BEDSIDE. BIPAP IN PLACE. PATIENT RESTING QUIELTY. NO ACUTE DISTRESS OBSERVED.
[2021-01-21] VITALS (24 sets, daily range): BP systolic 94–134; BP diastolic 45–76
--- NOTE | 2021-01-21 00:37 | NUR ---
PATIENT RESTING SEMI-FOWLERS POSITION. BIPAP IN PLACE. NO ACUTE DISTRESS OBSERVED.
--- NOTE | 2021-01-21 02:10 | NUR ---
NO CHANGE IN PATIENT CONDITION OBSERVED. CONTINUES WITH BIPAP. BED IN LOW POSITION. CALL LIGHT WITHIN REACH. BED ALARM ACTIVATED.
--- NOTE | 2021-01-21 04:30 | NUR ---
PATIENT RESTING COMOFRTABLY, DENIES ANY NEEDS AT THIS TIME. CALL LIGHT AND BEDSIDE TABLE WITHIN REACH.
--- NOTE | 2021-01-21 05:56 | NUR ---
PATIENT REPOSIONED PER REQUEST. LYING ON LEFT SIDE. STATES HER BACK ACHES VERY BAD 11/15. PT MEDICATED PER REQUEST SEE EMAR.
[2021-01-21 06:22] LABS: ANION GAP 6 (6-22 (CALC)); BUN 15 mg/dL (8-23); BUN/CREATININE RATIO 29 (12-20 (CALC)); CARBON DIOXIDE 36 mmol/l (22-30); CHLORIDE 94 mmol/l (95-108); CREATININE 0.5 mg/dL (0.5-1.0); GFR > 60 ML/MIN (>=60 (CALC)); GFR FOR AFR.AMER. > 60 ML/MIN (>=60 (CALC)); SODIUM 131 mmol/l (137-146)
[2021-01-21 06:25] LABS: HEMATOCRIT 40.5 % (37.0-47.0); HEMOGLOBIN 12.3 g/dl (12.0-16.0); MEAN CELL VOLUME 103.8 fL CALC (80.0-100.0); MEAN CORPUSCULAR HGB 31.5 pG CALC (26.0-32.0); MEAN CORPUSCULAR HGB CONC 30.4 g/dL CAL (32.0-36.0); RED BLOOD COUNT 3.9 mill/uL (4.20-5.60); RED CELL DISTRI WIDTH 15.5 % (11.5-15.5)
[2021-01-21] MEDS ORDERED: SINEQUAN50 MG PO (07:09)
[2021-01-21] MEDS ORDERED: POT CHLORIDE20 ME2 PO (07:10)
[2021-01-21] MEDS ORDERED: RISPERIDONE0.5 MG PO (07:10)
[2021-01-21] MEDS ORDERED: TOPIRAMATE100 MG PO (07:10)
--- NOTE | 2021-01-21 07:11 | NUR ---
ASSUMED CARE OF PT, PT RESTING IN BED ON BIPAP. NO S/S OF DISTRESS NOTED.
--- NOTE | 2021-01-21 09:38 | NUR ---
PT ON 4L NC SAT IS 96%
--- NOTE | 2021-01-21 10:10 | NUR ---
UPDATED PT SISTER AMADO SARANYAJESUS ALBERTOBRENDA AT [phone], AFTER GETTING PERMISSION FROM PT TO SPEAK WITH SISTER
--- NOTE | 2021-01-21 11:44 | NUR ---
PROVIDED LUNCH TRAY, PT STATES SHE DOESNT WANT IT RIGHT NOW, PLACED ON BEDSIDE TABLE, INSTRUCTED TO CALL IF SHE NEEDED ASSISTANCE LATER.
--- NOTE | 2021-01-21 13:46 | NUR ---
PT ON 4L SAT 96%
--- NOTE | 2021-01-21 14:26 | NUR ---
MEDICATED PT FOR PAIN TO BACK AND HEAD,DENIES ANY OTHER NEEDS AT THIS TIME
--- NOTE | 2021-01-21 16:19 | NUR ---
PT RESTING IN BED, DENIES NEEDS, NO S/S OF DISTRESS NOTED
--- NOTE | 2021-01-21 19:30 | NUR ---
awakens easily. denies acute distress. cardiac/vascular sonographer shows sinus rhythm hr 92. #18 lac saline lock. po fluids taken poor. cifuentes cath in place. urine yellow. bruises cont abd, back & arm. instructed pt about tcdb. turned & repositioned.
--- NOTE | 2021-01-21 22:00 | NUR ---
edicated for pain as requested.
[2021-01-22] VITALS (12 sets, daily range): BP systolic 91–140; BP diastolic 52–78
--- NOTE | 2021-01-22 00:01 | NUR ---
eyes closed. no distress.
--- NOTE | 2021-01-22 02:00 | NUR ---
resting quietly. no apparent distress.
--- NOTE | 2021-01-22 04:15 | NUR ---
lab here. blood drawn.
[2021-01-22 05:20] LABS: HEMATOCRIT 40.6 % (37.0-47.0); HEMOGLOBIN 12.1 g/dl (12.0-16.0); MEAN CELL VOLUME 103.8 fL CALC (80.0-100.0); MEAN CORPUSCULAR HGB 30.9 pG CALC (26.0-32.0); MEAN CORPUSCULAR HGB CONC 29.8 g/dL CAL (32.0-36.0); RED BLOOD COUNT 3.91 mill/uL (4.20-5.60)
[2021-01-22 05:37] LABS: ANION GAP 5 (6-22 (CALC)); BUN 13 mg/dL (8-23); BUN/CREATININE RATIO 22 (12-20 (CALC)); CARBON DIOXIDE 37 mmol/l (22-30); CHLORIDE 95 mmol/l (95-108); CREATININE 0.6 mg/dL (0.5-1.0); GFR > 60 ML/MIN (>=60 (CALC)); GFR FOR AFR.AMER. > 60 ML/MIN (>=60 (CALC)); MAGNESIUM 2.1 mg/dL (1.6-2.3); POTASSIUM 5.1 mmol/l (3.5-5.1); SODIUM 132 mmol/l (137-146)
--- NOTE | 2021-01-22 05:45 | NUR ---
awake. requested "sleeping pill." request denied
--- NOTE | 2021-01-22 07:05 | NUR ---
ASSUMED CARE OF PT. DISCUSSED HER ACTIONS OVERNIGHT OF THROWING HER CELL PHONE. STATES SHE IS BIPOLAR AND JUST HAD A "BAD EPISODE" AND DOSENT KNOW WHY SHE DID IT. DENIES ANY CURRENT NEEDS AT THIS TIME
--- NOTE | 2021-01-22 10:26 | NUR ---
no changes at this time. ot in c pt. retail advertising executive to monitor. pt c nad. vss.
[2021-01-22] MEDS ORDERED: PREDNISONE10 MG PO (11:52)
[2021-01-22] MEDS ORDERED: TRAMADOL HYDROC50 M1 PO (11:56)
--- NOTE | 2021-01-22 13:33 | NUR ---
PT BEING D/SUZY BY , PT REFUSED TO GO TO REHAB, HOME HEALTH SET UP BY CASE MANAGEMENT. RE ENFORCED NOT USING DRUGS SUCH XANAX, AND/OR ATIVAN. PT ROLLED EYES AND STATED " I HAVE USED THEM FOR 10 YEARS, CAN YOU IMAGINE ME STOPPING" REEDUCATED PT ON SEVERITY OF FALLS, AND REPIRATORY DISTRESS WITH THESE MEDS. ALSO EDUCATED PT ON DANGERS OF SMOKING AND USING HOME O2. AGAIN PT ROLLED EYES. AGAIN ENCOURAGED REHAB DUE TO NEED FOR PT/OT. PT STATED 'I AM GOING HOME"
--- NOTE | 2021-01-22 14:43 | NUR ---
PT DRESSED, IV REMOVED, HAS PRESCRIPTIONS IN HAND, INDICATES UNDERSTANDING OF DISCHARGE INSTRUCTIONS, AND IS AWAITING HER SISTER TO ARRIVE FOR TRANSPORTATION
--- NOTE | 2021-01-22 14:51 | NUR ---
PT TRANSPORTED OUT IN WHEELCHAIR, NO S/S OF DISTRESS NOTED, ALL BELONGINGS IN HAND.
--- NOTE | 2021-01-22 15:50 | NUR ---
Patient was seen for PT intervention today. Patient did seated B LE AROM exercises: hip flexion, hip adduction, hip abduction, hamstring curls, knee extension, gluteal squeezes, and ankle pumps for 10 reps x 2 sets with occasional verbal and tactile cuing to help decrease trick movements. Patient did log rolling bed mobility and sit to stand push off transfer ADLs for 1-2 reps with occasional verbal and tactile cuing.
== END 2021-01-22 14:57 | disposition home health service (06) | DRG 190 ==
LOC: ED 05:03 → ED-I 08:25 → ED 08:34 → ICU 08:35 → ED-I 08:35 → ICU 15:45
PROVIDERS: Emergency Medicine; Family Medicine; Nurse Practitioner; ADMIT Hospitalist; ATTEND Hospitalist
PROC: 5A09357 Assistance with Respiratory Ventilation, Less than 24 Consecutive Hours, Continuous Positive Airway Pressure (ICD-10-PCS; principal; 2021-01-20)
DX: J43.9 Emphysema, unspecified (principal); G92 Toxic encephalopathy; S22.41XA Multiple fractures of ribs, right side, initial encounter for closed fracture; T42.4X5A Adverse effect of benzodiazepines, initial encounter; R09.02 Hypoxemia; S20.211A Contusion of right front wall of thorax, initial encounter; I10 Essential (primary) hypertension; E78.5 Hyperlipidemia, unspecified; F31.9 Bipolar disorder, unspecified; F41.0 Panic disorder [episodic paroxysmal anxiety]; K21.9 Gastro-esophageal reflux disease without esophagitis; R06.89 Other abnormalities of breathing; F17.210 Nicotine dependence, cigarettes, uncomplicated; W19.XXXA Unspecified fall, initial encounter; Z99.81 Dependence on supplemental oxygen; Z20.822 Contact with and (suspected) exposure to COVID-19
CPT/HCPCS: J1650

== ENCOUNTER 2021-01-28 10:28 | Inpatient (IN) | payer MEDICARE, MEDICAID ==
[~2021-01-28] VITALS: Ht 160 cm; Wt 75.4 kg
[~2021-01-28 10:28] MED LIST changes: +POT CHLORIDE20 ME2 PO; +RISPERIDONE0.5 MG PO; +SINEQUAN50 MG PO; +TRAMADOL HYDROC50 M1 PO
--- NOTE | 2021-01-28 10:28 | NUR ---
PT TO ROOM VIA EMS STRETCHER.
[2021-01-28 11:38] LABS: HEMATOCRIT 45.9 % (37.0-47.0); HEMOGLOBIN 14.2 g/dl (12.0-16.0); IMMATURE GRANULOCYTES 0.2 % (0.0-5.0); MEAN CELL VOLUME 98.9 fL CALC (80.0-100.0); MEAN CORPUSCULAR HGB 30.6 pG CALC (26.0-32.0); MEAN CORPUSCULAR HGB CONC 30.9 g/dL CAL (32.0-36.0); NEUT# 12.92 thou/uL (2.00-7.15); RED BLOOD COUNT 4.64 mill/uL (4.20-5.60)
[2021-01-28 11:45] LABS: ALKALINE PHOSPHATASE 147 u/l (38-126); BUN 11 mg/dL (8-23); BUN/CREATININE RATIO 25 (12-20 (CALC)); CHLORIDE 100 mmol/l (95-108); CPK 259 u/l (30-165); CREATININE 0.4 mg/dL (0.5-1.0); GFR > 60 ML/MIN (>=60 (CALC)); GFR FOR AFR.AMER. > 60 ML/MIN (>=60 (CALC)); LIPASE 26 u/l (23-300); MAGNESIUM 1.8 mg/dL (1.6-2.3); POTASSIUM 4.2 mmol/l (3.5-5.1); SGOT/AST 28 u/l (9-36); SODIUM 131 mmol/l (137-146); TOTAL PROTEIN 5.9 g/dL (6.3-8.2)
--- NOTE | 2021-01-28 11:45 | NUR ---
was speaking with family member at the nurse station
[2021-01-28 11:47] LABS: ANION GAP 9 (6-22 (CALC)); BILIRUBIN, TOTAL 0.8 mg/dL (0.0-1.4); CARBON DIOXIDE 26 mmol/l (22-30)
[2021-01-28 12:19] LABS: URINE BLOOD DIPSTICK NEGATIVE (NEGATIVE); URINE COLOR YELLOW; URINE GLUCOSE - DIPSTICK NEGATIVE (NEGATIVE); URINE KETONE 40 mg/dL (NEGATIVE); URINE LEUK ESTERASE TRACE (NEGATIVE); URINE PROTEIN - DIPSTICK NEGATIVE (NEG-TRACE)
[2021-01-28 12:20] LABS: URINE BILIRUBIN - DIPSTICK MODERATE (NEGATIVE); URINE NITRITE - DIPSTICK NEGATIVE (Negative)
[2021-01-28 12:24] LABS: URINE RBC 0-2 RBC/hpf (0-5)
--- NOTE | 2021-01-28 12:35 | NUR ---
PT HAS DECREASED RESPONSIVNESS, CRIES OUT TO PAINFUL STIMULI. MD NOTIFIED AND AT [facility].
--- NOTE | 2021-01-28 12:45 | NUR ---
0.4 MG OF NARCAN GIVEN WITH NO CHANGES.
--- NOTE | 2021-01-28 14:03 | NUR ---
DR PEREZ AT BEDSIDE TO INTUBATE. PATIENT GIVE 20 MG ETOMIADTE, IVP BY DR PEREZ AT 1403 100 MG OF SUCCLCHOLINE, IVP BY Ro CAMERON RN. 7.5 ET TUBE PLACED WITH NO DIFFICULTY, WITH POSITIVE COLOR CHANGE AND BREATH SOUNDS AUSCULTATED BY DR PEREZ AT 1405. TUBE MEASURES 22 AT THE LIP. 16 F OG TUBE PLACED BY LAURA MEDINA WITH ASPIRATION OF STOMACH CONTENTS. 16F OCONNOR PLACED AT 1415. PT HYPOTENSIVE AT THIS TIME 74/43. NOTIFIED.
--- NOTE | 2021-01-28 14:33 | NUR ---
MD VILLARREAL INTUBATED THE P[ATIENT
[2021-01-28] MEDS ORDERED: LORAZEPAM0.5 MG PO (15:14)
--- NOTE | 2021-01-28 15:30 | NUR ---
PLACE A CENTRAL LINE RT SUBCLAVIA 3 LUMEN VERSITE DONE
--- NOTE | 2021-01-28 21:07 | NUR ---
Reassessment of patient completed. No distress noted.
--- NOTE | 2021-01-28 22:05 | NUR ---
PT RESTING TOLERATING VENT WIHTOUT INCIDENT, CALL CARTER WITHIN REACH, EASILY VISIBLE FROM NURSES STATION FOR SAFETY.
--- NOTE | 2021-01-28 23:08 | NUR ---
REPORT CALLED TO NANDA SANCHEZ IN ICU.
--- NOTE | 2021-01-28 23:09 | NUR ---
RT NOTIFIED OF TRANSFER AND NEED FOR ASSIST.
--- NOTE | 2021-01-28 23:32 | NUR ---
PT TRANSPORTED TO ICU VIA STRETCHER, WITH RT AT BEDSIDE
[2021-01-28 23:45] VITALS: BP 145/69
--- NOTE | 2021-01-28 23:45 | NUR ---
RECEIVED FROM ER VIA STRETCHER ACCOMPANIED BY NURSING CHIEF CONTROLLER TOWER AND RT. PATIENT BEING BAGGED BY RT. PATIENT TRANSFERRED TO BED WITH 4 PERSON ASSIST AND PLACED ON VENT BY RT. VENT SETTINGS PER VENT INTERVENTION. O2 SAT 100% BREATH SOUNDS CLEAR. SCD'S APPLIED BILATERALLY. PATIENT SEDATED ON PROPOFOL. RASS -3. LEVOPHED GTT INFUSING, DECREASED TO 18 MG/MIN FOR BP 145/69. ADMISSION ASSESSMENT COMPLETED. CARDAIC MONITOR SHOWS SR.
[2021-01-29] VITALS (42 sets, daily range): BP systolic 92–153; BP diastolic 50–86
--- NOTE | 2021-01-29 02:00 | NUR ---
RESTING CALMLY WITH EYES CLOSED. VSS. SR ON MONITOR.
--- NOTE | 2021-01-29 04:02 | NUR ---
VENT SETTINGS UNCHANGED. VSS. SR ON MONITOR.
--- NOTE | 2021-01-29 05:30 | NUR ---
WEANING PROPOFOL AND LEVOPHED. PATIENT MOVING LEGS AROUND, OPENS EYES. VERSED GTT INFUSING AT 1 MG/HR.
[2021-01-29 06:03] LABS: HEMATOCRIT 38.4 % (37.0-47.0); HEMOGLOBIN 12.3 g/dl (12.0-16.0); IMMATURE GRANULOCYTES 0.2 % (0.0-5.0); MEAN CORPUSCULAR HGB 30.4 pG CALC (26.0-32.0); NEUT# 10.6 thou/uL (2.00-7.15); RED BLOOD COUNT 4.04 mill/uL (4.20-5.60); RED CELL DISTRI WIDTH 14.5 % (11.5-15.5)
[2021-01-29 06:38] LABS: ALBUMIN 2.4 g/dL (3.2-5.0); ALKALINE PHOSPHATASE 141 u/l (38-126); BILIRUBIN, TOTAL 0.6 mg/dL (0.0-1.4); BUN 6 mg/dL (8-23); BUN/CREATININE RATIO 14 (12-20 (CALC)); CARBON DIOXIDE 27 mmol/l (22-30); CHLORIDE 101 mmol/l (95-108); CREATININE 0.5 mg/dL (0.5-1.0); GFR > 60 ML/MIN (>=60 (CALC)); GFR FOR AFR.AMER. > 60 ML/MIN (>=60 (CALC)); MAGNESIUM 1.4 mg/dL (1.6-2.3); SGOT/AST 17 u/l (9-36); SODIUM 130 mmol/l (137-146)
[2021-01-29 06:44] LABS: ANION GAP 5 (6-22 (CALC)); POTASSIUM 3.3 mmol/l (3.5-5.1)
--- NOTE | 2021-01-29 07:00 | NUR ---
ASSUMED CARE OF PT AFTER REPORT FROM LAURA VEE. WILL ATTEMPT TO WEAN SEDATION FOR POSSIBLE EXTUBATION LATER THIS AM. NO S/S OF DISTRESS NOTED AT THIS TIME
--- NOTE | 2021-01-29 08:27 | NUR ---
ALL SEDATION OFF FOR SBT FOR EXTUBATION
--- NOTE | 2021-01-29 09:01 | NUR ---
PT WAS EXTUBATED TO 4l NC AT 0859. AFTER EXTUBATION PT HAS B/L B/S SAT IS 100% ON THE 4L.
--- NOTE | 2021-01-29 11:30 | NUR ---
S: RALPHTOSHIA ALEXIS is a 65 F who presents with pneumonia and respiratory failure. She has a history of HTN, dyslipidemia, bipolar disorder, panic attacks, GERD, peripheral edema, and COPD/emphysema. All medications in patient's chart were reviewed. O: VS: BP 134/68 mmHg, P 71 bpm, RR 34 breath/min, T 97.4 F W 75 kg, HT 63 in, Scr= 1 (0.5), CrCl= 53 ml/min A: Blood culture is pending. Urine culture is pending. P: Patient is on Zosyn 3.375g IV Q6H. Vancomycin ordered for pharmacy to dose. Start Vancomycin 1g IV Q24H. Vancomycin trough is drawn before the 4th dose on 01/31/21 @ 1530. Vancomycin goal trough is between 15-20 mcg/ml. Pharmacy will follow and or advise on antibiotics use as needed.
--- NOTE | 2021-01-29 19:45 | NUR ---
RESTING IN BED WITH EYES CLSOED. AWAKENS TO NAME. ORIENTED TO PERSON AND "HOSPITAL". RESP NON-LABORED. O2 ON AT 1 L NC. LUNGS CLEAR, DIMINISHED. VSS. GYNECOLOGICAL ASSISTANT SHOWS SR. REPOSITONED IN BED. DISCUSSED PLAN OF CARE. DENIES NEEDS AT THIS TIME. REINFORCED USE OF CALL CARTER. CALL CARTER IN PLACE.
--- NOTE | 2021-01-29 22:00 | NUR ---
VSS. RESP NON-LABORED. SR ON MONITOR.
[2021-01-30] VITALS (14 sets, daily range): BP systolic 95–122; BP diastolic 53–72
--- NOTE | 2021-01-30 | NUR ---
RESTING WITH EYES CLOSED. RESP NON-LABORED. O2 SAT 94% SR ON MONITOR.
--- NOTE | 2021-01-30 02:00 | NUR ---
SLEEPS SOUNDLY. RESP NON-LABORED. VSS. SR ON MONITOR.
--- NOTE | 2021-01-30 04:00 | NUR ---
NO CHANGES TO REPORT. VSS. SR ON MONITOR. CONTINUES ON LEVOPHED GTT AT 2 MCG/MIN. BP STABLE.
[2021-01-30 05:50] LABS: HEMATOCRIT 37.3 % (37.0-47.0); HEMOGLOBIN 11.3 g/dl (12.0-16.0); IMMATURE GRANULOCYTES 0.2 % (0.0-5.0); MEAN CORPUSCULAR HGB 30.3 pG CALC (26.0-32.0); MEAN CORPUSCULAR HGB CONC 30.3 g/dL CAL (32.0-36.0); NEUT# 8.24 thou/uL (2.00-7.15); RED BLOOD COUNT 3.73 mill/uL (4.20-5.60); RED CELL DISTRI WIDTH 15.4 % (11.5-15.5)
[2021-01-30 06:04] LABS: ANION GAP 2 (6-22 (CALC)); BUN 3 mg/dL (8-23); BUN/CREATININE RATIO 7 (12-20 (CALC)); CARBON DIOXIDE 31 mmol/l (22-30); CHLORIDE 105 mmol/l (95-108); CREATININE 0.5 mg/dL (0.5-1.0); GFR > 60 ML/MIN (>=60 (CALC)); GFR FOR AFR.AMER. > 60 ML/MIN (>=60 (CALC)); POTASSIUM 3.7 mmol/l (3.5-5.1); SODIUM 134 mmol/l (137-146)
--- NOTE | 2021-01-30 06:14 | NUR ---
VSS. RESP NON-LABORED. SR ON MONITOR.
--- NOTE | 2021-01-30 08:11 | NUR ---
PRELIM BLOOD CX SHOWS GRAM POSITIVE COCCI IN 2 AEROBIC BOTTLES. PT IS ON VANCOMYCIN. REPORTED TO DR ROJAS. WILL F/U WITH FINALS
--- NOTE | 2021-01-30 11:00 | NUR ---
PT PLACED IN WHEELCHAIR AND TAKEN TO RADIOLOGY BY PARVIN
--- NOTE | 2021-01-30 12:45 | NUR ---
PT BROUGHT BACK TO ROOM FROM RADIOLOGY POST THORACENTISIS
--- NOTE | 2021-01-30 19:35 | NUR ---
PATIENT RESTING IN BED WATCHING TV. ALERT AND ORIENTED. RESP NON-LABORED. LUNGS CLEAR. OCC NO-PRODUCTIVE COUGH NOTED. SHIFT ASSESSMENT COMPLETED. VSS. SR ON MONITOR. DISCUSSED PLAN OF CARE. REMINDED TO CALL FOR ASSISTANCE AND OF FALL PRECAUTIONS. SIDE RAILS UP X2. CALL CARTER IN REACH. BED ALARM ON. NO COMPLAINTS VOICED. DENIES NEEDS AT THIS TIME.
--- NOTE | 2021-01-30 22:00 | NUR ---
RESTING WITH EYES CLOSED. RESP NON-LABORED.
[2021-01-31] VITALS (8 sets, daily range): BP systolic 112–151; BP diastolic 62–84
--- NOTE | 2021-01-31 | NUR ---
NO CHANGES TO REPORT. VSS RESP NON-LABORED.
--- NOTE | 2021-01-31 02:00 | NUR ---
NO CHANGES TO REPORT. SLEEPING SOUNDLY. VSS.
--- NOTE | 2021-01-31 04:00 | NUR ---
PATIENT SLEEPS SOUNDLY, AWAKENS TO NAME. VSS. SR ON MONITOR.
[2021-01-31 06:19] LABS: HEMATOCRIT 38.1 % (37.0-47.0); HEMOGLOBIN 11.4 g/dl (12.0-16.0); IMMATURE GRANULOCYTES 0.2 % (0.0-5.0); MEAN CELL VOLUME 101.1 fL CALC (80.0-100.0); MEAN CORPUSCULAR HGB 30.2 pG CALC (26.0-32.0); MEAN CORPUSCULAR HGB CONC 29.9 g/dL CAL (32.0-36.0); NEUT# 7.9 thou/uL (2.00-7.15); RED BLOOD COUNT 3.77 mill/uL (4.20-5.60); RED CELL DISTRI WIDTH 15.6 % (11.5-15.5)
[2021-01-31 06:35] LABS: ANION GAP 3 (6-22 (CALC)); BUN 4 mg/dL (8-23); BUN/CREATININE RATIO 8 (12-20 (CALC)); CARBON DIOXIDE 31 mmol/l (22-30); CHLORIDE 104 mmol/l (95-108); CREATININE 0.5 mg/dL (0.5-1.0); GFR > 60 ML/MIN (>=60 (CALC)); GFR FOR AFR.AMER. > 60 ML/MIN (>=60 (CALC)); MAGNESIUM 1.8 mg/dL (1.6-2.3); POTASSIUM 3.8 mmol/l (3.5-5.1); SODIUM 135 mmol/l (137-146)
--- NOTE | 2021-01-31 11:15 | NUR ---
CALLED REPORT TO RYDER SANCHEZ, TO TRANSFER PT TO M/S RM 271. ALL QUESTIONS ANSWERED. PT MOVED VIA WHEELCHAIR TO ROOM WITH RN AT BEDSIDE, NO S/S OF DISTRESS NOTED.
--- NOTE | 2021-01-31 11:25 | NUR ---
ICU TX ARRIVED TO FLOOR, OROIENTED TO ROOM. ASSESSMENT PERFORMED. NO COMPLAINTSM, WILL MONITOR.
--- NOTE | 2021-01-31 14:49 | NUR ---
Patient participated with PT intervention today. Patient attempted to participate with log rolling bed mobility ADLs (did 1 to 3 reps), moving on both sides, less on the R side due to exacerbation of rib fracture site and compression fracture area, with constant verbal and tactile cuing to help decrease trick movements and fall risks. Patient also worked on B LE AAROM exercises doing hip flexion, hip adduction, hip abduction, hamstring curls, knee extension, and ankle pumps for 10-15 reps with constant verbal and tactile cuing to help decrease exacerbation of muscle spasms, trick movements, and fall risks.
--- NOTE | 2021-01-31 17:41 | NUR ---
PT SITTING UP IN BED, WATCHING TV. NO COMPLAINTS.
--- NOTE | 2021-01-31 19:15 | NUR ---
PATIENT RESTING IN BED. ALERT. PLEASANT AND COOPERATIVE WITH CARE. REQUESTED ANOTHER PILLOW. NO DISTRESS NOTED. NO COMPLAINTS OF PAIN VOICED. ASSESSMENT COMPLETE. BED IN LOWEST POSITION. CALL LIGHT AND BELONGINS WITHIN REACH.
[2021-02-01] VITALS (7 sets, daily range): BP systolic 113–144; BP diastolic 60–77
--- NOTE | 2021-02-01 00:20 | NUR ---
PATIENT RESTING IN BED SLIGHTLY TOWARD HER LEFT SIDE. NO SIGNS OF DISTRESS NOTED. BREATHING EVEN/UNLABORED. NO COMPLAINTS OF PAIN VOICED. BED REMAINS IN LOWEST POSITION, LOCKED. BED ALARM REMAINS ACTIVE. REMINDED PATIENT TO UTILIZE CALL LIGHT WHEN NEEDING ASSISTANCE. CALL LIGHT AND BELONGINGS REMAIN IN REACH.
--- NOTE | 2021-02-01 04:25 | NUR ---
PATIENT RESTING IN BED. NO COMPLAINTS OF PAIN VOICED AT THIS TIME. NO SIGNS OF DISTRESS NOTED. PATIENT REMINDED TO USE CALL LIGHT WHEN ASSISTANCE IS NEEDED. CALL LIGHT IN REACH RIGHT NEXT TO PATIENTS RIGHT HAND.
--- NOTE | 2021-02-01 08:00 | NUR ---
pT SLEEPING, EASILY AROUSED. PT ALERT AND ORIENTED. PT DENIES ANY PAIN OR IMMEDIATE NEEDS AT THIS TIME. VS AND ASSESSMENT COMPLETE. LUNGS DIMINISHED. BREATHS ARE EVEN AND UNLABORED. ABDOMEN FLAT AND NONTENDER. RIJ X 3 LUMENS INTACT AND ALL LUMENS PATENT. IVF INFUSING. PERIPHERAL PULSES PALPABLE. WILL CONTINUE O2 THERAPY. BED ALARM ACTIVATED. SAFETY MEASURES IN PLACE AND CALL LIGHT WITHIN PATIENTS REACH. WILL MONITOR PATIENT CLOSELY
--- NOTE | 2021-02-01 12:00 | NUR ---
PT RESTING COMFORTABLY IN BED. NO IMMEDIATAE NEEDS AT THIS TIIME. SAFETY PRECAUTIONS IN PLACE. BED ALARM ACTIVATED. WILL CONTINUE TO MONITOR PT
--- NOTE | 2021-02-01 15:40 | NUR ---
HELD ABDIAS. ABDIAS TROUGH =6
--- NOTE | 2021-02-01 16:00 | NUR ---
PT RESTING IN BED. NO IMMEDIATE NEEDS AT THIS TIME. BED ALARM ACTIVATED. CALL LIGHT WITHIN PATIENTS REACH.
--- NOTE | 2021-02-01 20:00 | NUR ---
PATIENT AWAKE AT THIS TIME, WITH TRIPLE LUMEN IV ON RIGHT IJ, WITH ONGOING IV D5 1/2 NS @ 10CC/HR INFUSING WELL, HOOKED ON TELEMETRY SR 77, LUNG SOUNDS DIMINISHED, ACTIVE BOWEL SOUNDS, BRUISING NOTED ON ABDOMINAL AREA, AND SCATTERED BRUISING ON BILAT ARMS, C/O GEN PAIN, WILL MEDICATE, CALL LIGHT AT REACH.
--- NOTE | 2021-02-01 20:00 | NUR ---
RECEIVED REPORT FROM DAY NURSE PATIENT IS RESTING IN BED, EYES CLOSED, REMAINS ON BED ALARM CALL LIGHT AT REACH.
--- NOTE | 2021-02-02 00:10 | NUR ---
ON PATIENT NOTES, DAY NURSE DOUCUMENT THAT VANCOMYCIN WAS HELD BUT UPON LOOKING AT PATIENT EMAR PATIENT RECEIVED THE 3PM VANCOMYCIN DOSE.
[2021-02-02 04:00] VITALS: BP 140/70
--- NOTE | 2021-02-02 04:09 | NUR ---
NEW PUREWICK IN PLACED, BLOOD DRAWN FROM TRIPLE LUMEN IJ AND FLUSHED PER PROTOCOL.
[2021-02-02 05:58] LABS: ANION GAP 3 (6-22 (CALC)); BUN 8 mg/dL (8-23); BUN/CREATININE RATIO 15 (12-20 (CALC)); CHLORIDE 96 mmol/l (95-108); CREATININE 0.5 mg/dL (0.5-1.0); GFR > 60 ML/MIN (>=60 (CALC)); GFR FOR AFR.AMER. > 60 ML/MIN (>=60 (CALC)); POTASSIUM 3.2 mmol/l (3.5-5.1); SODIUM 136 mmol/l (137-146)
[2021-02-02 05:59] LABS: HEMATOCRIT 40.6 % (37.0-47.0); HEMOGLOBIN 12.3 g/dl (12.0-16.0); MEAN CELL VOLUME 100.7 fL CALC (80.0-100.0); MEAN CORPUSCULAR HGB 30.5 pG CALC (26.0-32.0); MEAN CORPUSCULAR HGB CONC 30.3 g/dL CAL (32.0-36.0); RED BLOOD COUNT 4.03 mill/uL (4.20-5.60)
[2021-02-02 06:46] LABS: CARBON DIOXIDE 40 mmol/l (22-30)
--- NOTE | 2021-02-02 06:49 | NUR ---
RECEIVED A PHONE CALL FROM LAB, PATIENT CO2 40, WILL INFORM DAY NURSE.
--- NOTE | 2021-02-02 08:00 | NUR ---
PT AWAKE AND RESTING IN BED. PT COMPLAINS THAT HER FOOD TASTE FUNNY, PT DENIES ANY PAIN. HR NORMAL. LUNGS ARE DIMINISHED. PT NOT WEARING O2 AT THE TIME. PT ADVISED TO REPLACE NC FOR BETTER O2 SATURATIONS. REPLACED NC AT 3L. WILL MONITOR O2 SATS CLOSELY. ABDOMEN SOFT AND NONTENDER. PERIPHERAL PULSES ARE PALPABLE. RIJ INTACT AND LUMENTS ARE PATENT X3. SAFETY MEASURES ARE IN PLACE. CALL LIGHT WITHIN PATIENTS REACH. WILL MONITOR PATIENT CLOSELY
[2021-02-02 11:07] VITALS: BP 158/79
--- NOTE | 2021-02-02 12:32 | NUR ---
PT SLEEPING. NO NEEDS AT THIS TIME. PT UNDER ANR CARE. WILL CONTINUE TO MONITOR
--- NOTE | 2021-02-02 15:12 | NUR ---
Patient participated with PT intervention today. Patient carried out log rolling bed mobility today for 1 to 3 reps with constant verbal and tactile cuing to decrease trick movement and and fall risks (patient attempted to do sit to stand push off transfer ADLs, but Anahi WILLINGHAM feels very weak to help maintain prolonged standing position). Patient also worked on B TARSHA seated AROM exercises doing hip flexion, hip adduction, hip abduction, hamstring curls, knee extension, and ankle pumps for 10 reps x 2 sets with constant verbal and tactile cuing to help decrease trick movements and fall risks as patient prepares to go to rehab.
[2021-02-02 16:06] VITALS: BP 149/81
--- NOTE | 2021-02-02 16:23 | NUR ---
PT RESTING COMFORTABLY IN BED PT DENIES ANY PAIN OR DISCOMFORT AT THIS TIME. BED ALARM ACTIVATED. SAFETY PRECAUTIONS IN PLACE AND CALL LIGHT WITHIN PATIENT'S REACH. WILL CONTINUE TO MONITOR
--- NOTE | 2021-02-02 17:55 | NUR ---
OT SCREENING COMPLETE: PT WOULD BENEFIT FROM OT EVAL & TX
[2021-02-02 19:35] VITALS: BP 146/81
--- NOTE | 2021-02-02 20:00 | NUR ---
PHYSICAL ASSESMENT COMPLETE. PT CURRENTLY DENIES PAIN OR DISCOMFORT. SCHEDULED MEDICATIONS AND PRN MEDICATION ADMINISTERED, SEE E-MAR. PT DENIES ANY NEEDS AT THIS TIME. PLAN OF CARE REVIEWED, PT DENIES QUESTIONS, VERBALIZES UNDERSTANDING. ITEMS WITHIN REACH, BED LOCKED IN LOW POSITION W/ BEDRAILS UP X2. CALL CARTER WITHIN REACH, AGREES TO CALL PRN.
[2021-02-03] VITALS: BP 160/92
--- NOTE | 2021-02-03 | NUR ---
PT LAYING IN BED WITH EYES CLOSED, APPEARS TO BE SLEEPING, APPEARS COMFORTABLE AND IN NO DISTRESS. RESPIRATIONS REGULAR AND UNLABORED. ITEMS REMAIN WITHIN REACH, CALL CARTER REMAINS WITHIN REACH. BED REMAINS LOCKED AND IN LOW POSITION WITH BEDRAILS UP X2. WILL CONTINUE TO MONITOR.
--- NOTE | 2021-02-03 03:53 | NUR ---
PT RESTING IN BED, NO SIGNS OF DISTRESS NOTED, RESP EVEN AND UNLABORED. PT VOICES NO NEEDS OR COMPLAINTS AT THIS TIME. CALL LIGHT IN REACH, CONTINUE TO MONITOR.
[2021-02-03 04:00] VITALS: BP 139/78
--- NOTE | 2021-02-03 07:05 | NUR ---
REPORT RECEIVED FROM LAURA GONZALES
[2021-02-03 08:45] VITALS: BP 139/78
--- NOTE | 2021-02-03 08:45 | NUR ---
PT RESTING IN RECLINER,A&O X3;VS OBTAINED AND ASSESSMENT COMPLETED;PT DENIES ANY CURRENT PAIN OR DISCOMFORTS, PAIN SCALE AND REPORTING EDUCATED;RESPIRATIONS EVEN AND UNLABORED ON O2 @ 3L VIA NC, O2 SATS 98% AND OXYGEN TITRATED TO 2L AT THIS TIME;CLEAR LUNG SOUNDS;ABDOMEN SOFT ON PALPATION AND ACTIVE IN ALL 4 QUADRANTS;WEAK PEDAL PULSES;SKIN INTACT;TELE MONITORING IN PLACE;RIJ TL INFUSING D5 1/2 NS @ 10ML/HR,SITE APPEARS HEALTHY;ALL REMAINING LUMENS FLUSHED WITH GOOD BLOOD RETURN NOTED;PT DENIES ANY ADDITIONAL NEEDS AND IS ENCOURAGED TO CALL FOR ASSISTANCE IF NEEDED;FALL PRECAUTIONS IN PLACE WITH CALL LIGHT IN REACH;WILL CONTINUE TO MONITOR
--- NOTE | 2021-02-03 09:43 | NUR ---
PHYSICAL THERAPY AT BEDSIDE WORKING WITH PT.
[2021-02-03 10:05] VITALS: BP 113/73
--- NOTE | 2021-02-03 10:50 | NUR ---
OXYGEN SATURATION 97% ON O2 @ 2L VIA NC, O2 TITRATED TO 1L AT THIS TIME.PT DENIES ANY CURRENT PAIN OR NEEDS;CALL LIGHT IN REACH;WILL CONTINUE TO MONITOR
[2021-02-03 11:01] LABS: HEMATOCRIT 43.6 % (37.0-47.0); HEMOGLOBIN 13.3 g/dl (12.0-16.0); IMMATURE GRANULOCYTES 0.2 % (0.0-5.0); MEAN CELL VOLUME 98.9 fL CALC (80.0-100.0); MEAN CORPUSCULAR HGB 30.2 pG CALC (26.0-32.0); MEAN CORPUSCULAR HGB CONC 30.5 g/dL CAL (32.0-36.0); NEUT# 10.52 thou/uL (2.00-7.15); RED BLOOD COUNT 4.41 mill/uL (4.20-5.60); RED CELL DISTRI WIDTH 14.8 % (11.5-15.5)
--- NOTE | 2021-02-03 11:10 | NUR ---
OXYGEN @ 95% ON 1L VIA NC, OXYGEN TITRATED TO RA AT THIS TIME.
--- NOTE | 2021-02-03 11:23 | NUR ---
PT OOB RESTING IN RECLINER;RESPIRATIONS EVEN AND UNLABORED;O2 SATS @ 88% ON RA, OXYGEN REPLACED AT 1L VIA NC O2 SATS 94%. PT MEDICATED WITH PRN ZOFRAN 4MG IVP PER REQUEST FOR NAUSEA;PT DENIES ANY ADDITIONAL PAIN OR NEEDS;RIJ PATENT INFUSING D5 1/2 NS WITH EASE;TELE MONITORING IN PLACE;PT DENIES ANY ADDITIONAL NEEDS AND IS ENCOURAGED TO CALL FOR ASSISTANCE IF NEEDED;CALL LIGHT IN REACH;WILL CONTINUE TO MONITOR
--- NOTE | 2021-02-03 11:25 | NUR ---
AND YON ANRP AT BEDSIDE DISCUSSING POC.
[2021-02-03 11:26] LABS: BUN 7 mg/dL (8-23); BUN/CREATININE RATIO 18 (12-20 (CALC)); CHLORIDE 94 mmol/l (95-108); CREATININE 0.4 mg/dL (0.5-1.0); GFR > 60 ML/MIN (>=60 (CALC)); GFR FOR AFR.AMER. > 60 ML/MIN (>=60 (CALC)); MAGNESIUM 1.5 mg/dL (1.6-2.3); POTASSIUM 3.3 mmol/l (3.5-5.1); SODIUM 133 mmol/l (137-146)
[2021-02-03 11:31] LABS: ANION GAP 2 (6-22 (CALC)); CARBON DIOXIDE 40 mmol/l (22-30)
--- NOTE | 2021-02-03 11:31 | NUR ---
CRITICAL RESULT CALLED FROM LAB CARBON DIOXIDE 40.CALL RECEIVED FROM [facility]. RESULTS REPORTED TO YON ANBOB, NO NEW ORDERS RECEIVED AT THIS TIME.
[2021-02-03] MEDS ORDERED: DOXYCYC MONO100 M2 PO (13:09)
[2021-02-03] MEDS ORDERED: PANTOPRAZOLE SO40 M1 PO (13:10)
[2021-02-03] MEDS ORDERED: PREDNISONE20 MG PO (13:10)
[2021-02-03] MEDS ORDERED: TRAMADOL HYDROC50 M1 PO (13:23)
--- NOTE | 2021-02-03 13:30 | NUR ---
PT EDUCATED ON APPROX DIRECTOR OF COLLECTIONS AND ARCHIVES TIME TO [facility] AT 1600 AND VERBALIZES UNDERSTANDING;ALL QUESTIONS ANSWERED AT THIS TIME;WILL CONTINUE TO MONITOR
--- NOTE | 2021-02-03 13:38 | NUR ---
ALL DISCHARGE INSTRUCTIONS PROVIDED AT THIS TIME;PT INSTRUCTED TO PARTICIPATE IN REHAB;CONTINUE ALL ROUTINE HOME MEDICATIONS;RX FOR ULTRAM,DOXY,PREDNISONE AND PROTONIX TO BE SENT WITH REHAB STAFF MEMBER;ALL QUESTIONS ANSWERED AT THIS TIME;PT DENIES ANY ADDITIONAL QUESTIONS OR NEEDS;WC TO BE PROVIDED FOR D/C HOME;APPROX LANDMAN TIME 1600;CALL LIGHT IN REACH;WILL CONTINUE TO MONITOR
--- NOTE | 2021-02-03 13:40 | NUR ---
Patient participated with PT intervention today. Patient carried out log rolling bed mobility and sit to stand push off transfer ADLs (did 1 to 3 reps) with minimal verbal and tactile cuing to help improve functional weight bearing ADL capability, tolerance, and stability. Patient did gait training for 3 reps x 3 to 5 feet each increment with slow alexander on level surfaces with min A x 1. Patient also did B LE seated AROM exercises doing hip flexion, hip adduction, hip abduction, hamstring curls, knee extension, and ankle pumps for 10 reps x 2 sets with occasional verbal and tactile cuing to help improve increase functional weight bearing ADLs prior to discharge from hospital.
--- NOTE | 2021-02-03 14:05 | NUR ---
REPORT CALLED TO LAURA REICH AT [facility].
[2021-02-03 14:30] VITALS: BP 151/85
--- NOTE | 2021-02-03 14:55 | NUR ---
OT AT BEDSIDE WORKING WITH PT.
--- NOTE | 2021-02-03 16:00 | NUR ---
TL RIJ REMOVED BY LAURA SOLER WITH CATHETER INTACT. PT TOLERATED WELL.
--- NOTE | 2021-02-03 16:55 | NUR ---
Discharge instructions given. Patient verbalizes understanding of same. Discharged in stable condition via Wheelchair to [facility] with *Other. All belongings sent with pt. PT TRANSPORTED TO [facility] VIA ACCOMPANIED BY DIVYA NOYOLA AND [facility] STAFF. ALL BELONGINGS LEFT WITH PT AT THIS TIME.
== END 2021-02-03 16:58 | DRG 917 ==
LOC: ED 10:28 → ED-I 14:30 → ED 14:40 → ED-I 14:41 → ICU 14:41 → MS2 14:41 → ICU 20:03 → MS2 01-31 11:25
PROVIDERS: Emergency Medicine; Internal Medicine; Nurse Practitioner; ADMIT Internal Medicine; ATTEND Internal Medicine
PROC: 0BH17EZ Insertion of Endotracheal Airway into Trachea, Via Natural or Artificial Opening (ICD-10-PCS; principal; 2021-01-28)
PROC: 5A1935Z Respiratory Ventilation, Less than 24 Consecutive Hours (ICD-10-PCS; 2021-01-28)
PROC: 02HV33Z Insertion of Infusion Device into Superior Vena Cava, Percutaneous Approach (ICD-10-PCS; 2021-01-28)
PROC: 0T9B70Z Drainage of Bladder with Drainage Device, Via Natural or Artificial Opening (ICD-10-PCS; 2021-01-28)
PROC: 0W993ZZ Drainage of Right Pleural Cavity, Percutaneous Approach (ICD-10-PCS; 2021-01-30)
DX: T42.4X1A Poisoning by benzodiazepines, accidental (unintentional), initial encounter (principal); G92 Toxic encephalopathy; J18.9 Pneumonia, unspecified organism; J96.22 Acute and chronic respiratory failure with hypercapnia; J96.21 Acute and chronic respiratory failure with hypoxia; S22.080A Wedge compression fracture of T11-T12 vertebra, initial encounter for closed fracture; S22.41XA Multiple fractures of ribs, right side, initial encounter for closed fracture; J90 Pleural effusion, not elsewhere classified; E87.2 Acidosis; F13.20 Sedative, hypnotic or anxiolytic dependence, uncomplicated; J43.9 Emphysema, unspecified; I10 Essential (primary) hypertension; S20.211A Contusion of right front wall of thorax, initial encounter; F31.9 Bipolar disorder, unspecified; M19.90 Unspecified osteoarthritis, unspecified site; F41.9 Anxiety disorder, unspecified; N94.89 Other specified conditions associated with female genital organs and menstrual cycle; I95.9 Hypotension, unspecified; E78.5 Hyperlipidemia, unspecified; K21.9 Gastro-esophageal reflux disease without esophagitis; F17.210 Nicotine dependence, cigarettes, uncomplicated; W19.XXXA Unspecified fall, initial encounter; Y92.009 Unspecified place in unspecified non-institutional (private) residence as the place of occurrence of the external cause; Z91.81 History of falling; Z20.822 Contact with and (suspected) exposure to COVID-19; Z60.2 Problems related to living alone
CPT/HCPCS: J1650; J3370; J3475; Q9967; S0164

== ENCOUNTER 2021-03-08 20:35 | Inpatient (IN) | payer MEDICARE, MEDICAID ==
[~2021-03-08] VITALS: Ht 160 cm; Wt 72.0 kg
[~2021-03-08 20:35] MED LIST changes: -DEPAKOTE ER500 MG PO; +DIVALPROEX SOD500 MG PO; +DOXYCYC MONO100 M2 PO; +PREDNISONE20 MG PO
--- NOTE | 2021-03-08 20:54 | NUR ---
PT ARRIVES VIA EMS C/O WEAKNESS X2 DAYS C/O TAILBONE PAIN DUE TO FALL YESTERDAY. PT A&OX4
--- NOTE | 2021-03-08 21:15 | NUR ---
PT PLACED ON FALL RISK PRECAUTIONS
[2021-03-08 21:20] LABS: HEMATOCRIT 45.7 % (37.0-47.0); HEMOGLOBIN 14.3 g/dl (12.0-16.0); IMMATURE GRANULOCYTES 0.5 % (0.0-5.0); MEAN CELL VOLUME 95.8 fL CALC (80.0-100.0); MEAN CORPUSCULAR HGB CONC 31.3 g/dL CAL (32.0-36.0); NEUT# 7.56 thou/uL (2.00-7.15); RED BLOOD COUNT 4.77 mill/uL (4.20-5.60); RED CELL DISTRI WIDTH 15.2 % (11.5-15.5)
--- NOTE | 2021-03-08 21:20 | NUR ---
PT TO CT; STATES NO ASSISTANCE AT THIS TIME. PT AWARE OF NEEDING URINE SAMPLE
[2021-03-08 21:31] LABS: ALBUMIN 3.2 g/dL (3.2-5.0); ALKALINE PHOSPHATASE 141 u/l (38-126); ANION GAP 9 (6-22 (CALC)); BILIRUBIN, TOTAL 0.4 mg/dL (0.0-1.4); BUN 5 mg/dL (8-23); BUN/CREATININE RATIO 10 (12-20 (CALC)); CARBON DIOXIDE 33 mmol/l (22-30); CHLORIDE 98 mmol/l (95-108); CREATININE 0.6 mg/dL (0.5-1.0); GFR > 60 ML/MIN (>=60 (CALC)); GFR FOR AFR.AMER. > 60 ML/MIN (>=60 (CALC)); POTASSIUM 3.6 mmol/l (3.5-5.1); SGOT/AST 17 u/l (9-36); SODIUM 136 mmol/l (137-146); TOTAL PROTEIN 6.7 g/dL (6.3-8.2)
[2021-03-08 21:43] LABS: MYOGLOBIN 16 ng/mL (0 - 62)
--- NOTE | 2021-03-08 22:22 | NUR ---
PT STRAIGHT CATHED; BLADDER EMPTIED; PT AWARE OF PLAN OF CARE; STATES NO ASSISTANCE AT THIS TIME
[2021-03-08 22:51] LABS: URINE BILIRUBIN - DIPSTICK NEGATIVE (NEGATIVE); URINE BLOOD DIPSTICK TRACE-INTACT (NEGATIVE); URINE COLOR YELLOW; URINE GLUCOSE - DIPSTICK NEGATIVE (NEGATIVE); URINE KETONE NEGATIVE (NEGATIVE); URINE PROTEIN - DIPSTICK NEGATIVE (NEG-TRACE); URINE SPECIFIC GRAVITY >=1.030; URINE UROBILINOGEN - DIPSTICK 0.2 E.U./dL (0.2)
[2021-03-08 22:52] LABS: URINE LEUK ESTERASE MODERATE (NEGATIVE); URINE NITRITE - DIPSTICK NEGATIVE (Negative)
[2021-03-08 22:54] LABS: URINE BACTERIA FEW hpf; URINE WBC 20-50 WBC/hpf (0-5)
--- NOTE | 2021-03-08 23:18 | NUR ---
REPORT RECEIVED FROM Yared MUSA RN
--- NOTE | 2021-03-08 23:19 | NUR ---
PT SLEEPING ON ED COT; STARTED ON CEFTRIAXONE INFUSTION
--- NOTE | 2021-03-08 23:45 | NUR ---
TELEMETRY APPLIED TO PT; REPORT CALLED TO SALIMA SANCHEZ. PT RESTING COMFORTABLY ON ED COT
--- NOTE | 2021-03-08 23:45 | NUR ---
PT TAKEN TO 278 WITH LAURA BORREGO AT BEDSIDE. PT TRANSPORTED WITH TELEMETRY.
--- NOTE | 2021-03-08 23:50 | NUR ---
PATIENT ARRIVED VIA STRETCHER ACCOMPANIED BY Michel MUSA RN
[2021-03-09] VITALS: BP 140/66
[2021-03-09 04:00] VITALS: BP 136/63
--- NOTE | 2021-03-09 04:30 | NUR ---
PATIENT SLEEPING SOUNDLY UNAWOKEN BY WRITTER. NO APAPRENT DISTRESS NOTED. CALL LIGHT AND BEDSIDE TABLE WITHIN REACH.
[2021-03-09 05:12] LABS: HEMATOCRIT 45.4 % (37.0-47.0); HEMOGLOBIN 13.7 g/dl (12.0-16.0); MEAN CELL VOLUME 99.3 fL CALC (80.0-100.0); MEAN CORPUSCULAR HGB CONC 30.2 g/dL CAL (32.0-36.0); RED BLOOD COUNT 4.57 mill/uL (4.20-5.60)
[2021-03-09 05:54] LABS: ANION GAP 10 (6-22 (CALC)); BUN 5 mg/dL (8-23); BUN/CREATININE RATIO 9 (12-20 (CALC)); CARBON DIOXIDE 30 mmol/l (22-30); CHLORIDE 102 mmol/l (95-108); CREATININE 0.5 mg/dL (0.5-1.0); GFR > 60 ML/MIN (>=60 (CALC)); GFR FOR AFR.AMER. > 60 ML/MIN (>=60 (CALC)); POTASSIUM 4.2 mmol/l (3.5-5.1); SODIUM 137 mmol/l (137-146)
--- NOTE | 2021-03-09 08:00 | NUR ---
PT AWAKE UPON ENTERING ROOM. AWAKE AND ALERT X3 PT IS ON O2 NASAL CANNULA 2L. IV #20 RAC SALINE LOCK. NO SIGN OF REDNESS/ INFLAMMATION. PT HAS SIGNS OF REDNESS ON BUTTOCVK AND IN BETWEEN THE THIGHS. PT IS INCONTINET. ASSESSMENT WAS PERFORMED AT THIS TIME. HEART SOUNDS ARE REGULAR. RADIAL PULSES ARE STRONG EQUALLY BILATERALLY. PEDAL PULSES ARE WEAK. +2 EDEMA ON BOTH LEGS. LUNG SOUNDS ARE CLEAR UPPER AND LOWER LOBES. BOWEL SOUNDS ARE ACTIVE X4. TELE MONITOR IS IN PLACE. CALL LIGHT WITHIN REACH. PT REPORTS NO PAIN AT THIS TIME.
--- NOTE | 2021-03-09 10:40 | NUR ---
DR ARIZA AND Junito REILLY AEROSPACE PROJECT MANAGER AT BEDSIDE DISCUSSING POC
[2021-03-09 11:17] VITALS: BP 114/68
--- NOTE | 2021-03-09 12:00 | NUR ---
PT RESTING WATCHING TV. REPORTS NO PAIN AT THIS TIME. CALL LIGHT IS WITHIN REACH. TELE MONITOR IN PLACE. BREATHING IS EVEN/ UNLABORED. PT ON 02 VIA NASAL CANNULA AT 2L. CALL LIGHT WITHIN REACH.
[2021-03-09 15:30] VITALS: BP 107/71
--- NOTE | 2021-03-09 16:00 | NUR ---
PT AWAKE WATCHING TELEVISION. PT VERBALLY UNDERSTANDS TO CALL NURSE/MANAGER GAMING TO USE THE BATHROOM ON THE BED SIDE COMMODE. TELE MONITOR IS IN PLACE. IV IS INTACT SALINE LOCK. REPORTS NO PAIN AT THIS TIME.
[2021-03-09 19:00] VITALS: BP 124/58
--- NOTE | 2021-03-09 19:26 | NUR ---
#20G RW X1 ATTEMPT STARTED BY Clemente FERNANDEZ RN. HEALTHY AND PATENT WITH GOOD BLOOD RETURN. IV LABELED. #20G [facility] SITE REMOVED PT SET UP TO BRUSH TEETH. CALL LIGHT WITHIN REACH.
--- NOTE | 2021-03-09 20:35 | NUR ---
PT MEDICATED ORDERS PROVIDE. PT IS ASKING FOR HOME MEDICATIONS, PHYSICIAN NOTIFIED OF NEED FOR MEDICATION ORDERS, NEW ORDERS WERE PLACED, AWAITING PHARMACY VERIFICATION. PT ASKED FOR VASELINE FOR DRY CHAPPED LIPS/WATER BASED LUBRICANT PROVIDED, SHE STATED THE LIP BALM DID NOT WORK. DENIES ANY OTHER NEEDS AT THIS TIME. IV ANTIBIOTIC THERAPY ADMINSTERED AT THIS TIME.
--- NOTE | 2021-03-09 22:20 | NUR ---
PT MEDICATED ORDERS PROVIDE AND ASSISTED POSITIONING BED FOR SLEEP AND TURNING TV OFF PER REQUEST. ABX IV ADMINISTERED AT THIS TIME.
--- NOTE | 2021-03-10 | NUR ---
IVPUMP SOUNDED. PT WAS SLEEPING SOUNDLY, DID NOT AWAKE TO MY ENTERING THE ROOM, NO S/O DISTRESS NOTED. RESP EVEN AND NON-LABORED. SOFT SONOROUS SOUNDS HEARD WHILE IN THE ROOM. CALL LIGHT W/IN REACH.
[2021-03-10 00:05] VITALS: BP 121/62
--- NOTE | 2021-03-10 00:50 | NUR ---
pt called to report having been incontenent of urine. I assisted her to bsc, she stated, "i already went" I assisted her cleaning self of urine and changed mesh panties/pad and bed pad. Pt asked for pull-up brief's. I advised that we don't carry those here. Pad provided. Assisted pt back to the bed. Denied any other needs of assistance. call light w/in reach.
[2021-03-10 05:00] VITALS: BP 110/54
--- NOTE | 2021-03-10 05:15 | NUR ---
LAB IN WITH PT FOR BLOOD DRAWS, V/S HAVE BEEN ASSESSED. PT DENIES ANY NEEDS OF ASSISTANCE. CALL LIGHT AT SIDE.
[2021-03-10 05:58] LABS: HEMATOCRIT 41.2 % (37.0-47.0); HEMOGLOBIN 12.5 g/dl (12.0-16.0); MEAN CELL VOLUME 97.9 fL CALC (80.0-100.0); MEAN CORPUSCULAR HGB 29.7 pG CALC (26.0-32.0); MEAN CORPUSCULAR HGB CONC 30.3 g/dL CAL (32.0-36.0); RED BLOOD COUNT 4.21 mill/uL (4.20-5.60); RED CELL DISTRI WIDTH 14.7 % (11.5-15.5)
[2021-03-10 06:20] LABS: ANION GAP 7 (6-22 (CALC)); BUN 7 mg/dL (8-23); BUN/CREATININE RATIO 11 (12-20 (CALC)); CARBON DIOXIDE 32 mmol/l (22-30); CHLORIDE 101 mmol/l (95-108); CREATININE 0.6 mg/dL (0.5-1.0); GFR > 60 ML/MIN (>=60 (CALC)); GFR FOR AFR.AMER. > 60 ML/MIN (>=60 (CALC)); POTASSIUM 4.3 mmol/l (3.5-5.1); SODIUM 135 mmol/l (137-146)
--- NOTE | 2021-03-10 07:30 | NUR ---
pt assisted to bsc; pt tolerated activity well. pt assisted to recliner to eat breakfast. call light within reach.
--- NOTE | 2021-03-10 08:00 | NUR ---
PT AWAKE SITTING ON RECLINER NEAR BED. TELE MONITOR IN PLACE. IV #20 RW PATENT NO SIGN OF INFLAMMATION, FLUSHED WITH NO RESTANCE NOTED. ASSESMENT PERFORMED: A&O X3, S1&S2 HEARD UPON AUSCULATION. LUNG SOUNDS ARE CLEAR/ UPPER LOWER LOBES. PT IS ON O2 NASAL CANNULA RATE OF 2L. BOWEL SOUNDS ARE ACTIVE X4. EDEMA +2 ON LOWER LEGS BILATERALLY. RADIAL PULSE ARE STRONG EQUALLY BILATERALLY. PEDAL ARE WEAK EQUALLY BILATERALLY. PT STATES NO PAIN AT THIS TIME. CALL LIGHT IS WITHIN REACH.
[2021-03-10 08:21] VITALS: BP 117/61
--- NOTE | 2021-03-10 09:40 | NUR ---
PHYSICAL THERAPY AT BEDSIDE
[2021-03-10 10:27] VITALS: BP 118/65
--- NOTE | 2021-03-10 10:50 | NUR ---
DR. ARIZA AND JANETT RAPP DISCUSSING POC WITH PT.
--- NOTE | 2021-03-10 12:00 | NUR ---
PT EATING LUNCH IN RECLINER. VERBALLY UNDERSTANDS TO CALL FOR ASSISTANCE BEFORE NEED TO VOID. REPORTS NO PAIN AT THIS TIME. CALL LIGHT IS WITHIN REACH.
--- NOTE | 2021-03-10 13:01 | NUR ---
PHARMACY WITH PT AT THIS TIME DISCUSSING MEDICATIONS.
[2021-03-10] MEDS ORDERED: OMNICEF300 MG PO (14:11)
[2021-03-10] MEDS ORDERED: ZITHROMAX250 MG PO (14:11)
[2021-03-10] MEDS ORDERED: PREDNISONE20 MG PO (14:11)
[2021-03-10] MEDS ORDERED: TRAMADOL HYDROC50 M1 PO (14:12)
--- NOTE | 2021-03-10 16:32 | NUR ---
S: Patient reported feeling better on this date and had decreased pain. O: Patient performed: 2 x 10 each seated with feet up SLR 2 x 10 seated with feet up hip abduction 2 x 10 each seated hip flexion 2 x 10 each seated knee extension 2 x 10 each seated ankle pumps Ambulation x 40 feet with Min A x 1 with FWW Patient reported having decreased pain and felt that she was more "loose and less stiff" after the first 20 feet. Patient actively wanted to keep ambulating until she started feeling fatigued after 40 feet of ambulation. Patient performed this ambulation period without 2 L of O2 and facilitated 2 cycles of gait activity of 20 per cycle with no significant evidence of SOB. Though patient request to take a break after second cycle. A: Patient was able to perform more functional weight bearing ADLs than at the initial evaluation due to decreased pain. Patient gait pattern still very concerning from a safety standpoint as she laterally shifts her COG slighty during single leg stance bilaterally. P: Patient still requires continued strengthening activities, gait training, transfer training, and balance training to improve safety and function with ADLs. Patient's Am Pac score on this date was a 11 which would be a recommendation for an extended care facility. I agree with this recommendation as she is very unsteady during ambulation due to gait deviations.
--- NOTE | 2021-03-10 17:05 | NUR ---
Discharge instructions given. Patient verbalizes understanding of same. Discharged in stable condition via Wheelchair to R with staff. All belongings sent with pt. REPORT GIVEN TO FACILITY.
== END 2021-03-10 17:05 | DRG 190 ==
LOC: ED 20:35 → ED-I 23:00 → ED 23:13 → MS2 23:14
PROVIDERS: Emergency Medicine; Nurse Practitioner; ADMIT Hospitalist; ATTEND Internal Medicine
DX: J44.1 Chronic obstructive pulmonary disease with (acute) exacerbation (principal); J18.9 Pneumonia, unspecified organism; N39.0 Urinary tract infection, site not specified; J44.0 Chronic obstructive pulmonary disease with (acute) lower respiratory infection; R09.02 Hypoxemia; R53.1 Weakness; M54.50 Low back pain, unspecified; M53.3 Sacrococcygeal disorders, not elsewhere classified; I10 Essential (primary) hypertension; F41.9 Anxiety disorder, unspecified; F31.9 Bipolar disorder, unspecified; F19.10 Other psychoactive substance abuse, uncomplicated; M19.90 Unspecified osteoarthritis, unspecified site; E78.5 Hyperlipidemia, unspecified; K21.9 Gastro-esophageal reflux disease without esophagitis; F17.210 Nicotine dependence, cigarettes, uncomplicated; B96.20 Unspecified Escherichia coli [E. coli] as the cause of diseases classified elsewhere; W19.XXXA Unspecified fall, initial encounter; Z91.81 History of falling; Z60.2 Problems related to living alone; Z20.822 Contact with and (suspected) exposure to COVID-19
CPT/HCPCS: J1650

== ENCOUNTER 2021-04-03 16:07 | Observation (INO) | payer MEDICARE, MEDICAID ==
[~2021-04-03] VITALS: Ht 160 cm; Wt 68.5 kg
[~2021-04-03 16:07] MED LIST changes: +OMNICEF300 MG PO; +ZITHROMAX250 MG PO
--- NOTE | 2021-04-03 16:07 | NUR ---
PT TO ROOM VIA EMS STRETCHER.
--- NOTE | 2021-04-03 16:15 | NUR ---
PT STATES TAKING SLEEPING PILL AT 0400 TODAY, 2-3 DOSES OF ATIVAN THROUGHOUT DAY AND FALLING SOMETIME AROUND 1300 ON BUTTOCKS. PT THEN ASKED IF SHE COULD STAY IN [facility] ROOM. ORIENTED X1 TO PERSON ONLY
[2021-04-03 16:48] LABS: MEAN CELL VOLUME 94.6 fL CALC (80.0-100.0); MEAN CORPUSCULAR HGB 29.6 pG CALC (26.0-32.0); MEAN CORPUSCULAR HGB CONC 31.3 g/dL CAL (32.0-36.0); NEUT# 5.15 thou/uL (2.00-7.15); RED CELL DISTRI WIDTH 14.7 % (11.5-15.5)
[2021-04-03 16:49] LABS: HEMATOCRIT 47.3 % (37.0-47.0); HEMOGLOBIN 14.8 g/dl (12.0-16.0)
[2021-04-03 17:07] LABS: ACT PARTIAL THROMBO TIME 27.5 SECONDS (20.0-32.5); ALBUMIN 3.6 g/dL (3.2-5.0); ALKALINE PHOSPHATASE 167 u/l (38-126); AMYLASE 142 u/l (30-110); ANION GAP 11 (6-22 (CALC)); BILIRUBIN, TOTAL 0.4 mg/dL (0.0-1.4); BUN 6 mg/dL (8-23); BUN/CREATININE RATIO 10 (12-20 (CALC)); CARBON DIOXIDE 32 mmol/l (22-30); CHLORIDE 100 mmol/l (95-108); CREATININE 0.6 mg/dL (0.5-1.0); ETHYL ALCOHOL 0 mg/dl (0-30); GFR > 60 ML/MIN (>=60 (CALC)); GFR FOR AFR.AMER. > 60 ML/MIN (>=60 (CALC)); LIPASE 24 u/l (23-300); MAGNESIUM 1.9 mg/dL (1.6-2.3); POTASSIUM 3.9 mmol/l (3.5-5.1); PROTHROMBIN TIME 10.5 SECONDS (9.0-12.5); SGOT/AST 15 u/l (9-36); SODIUM 139 mmol/l (137-146); TOTAL PROTEIN 6.9 g/dL (6.3-8.2)
--- NOTE | 2021-04-03 17:15 | NUR ---
Reassessment of patient completed. No distress noted.
[2021-04-03 17:38] LABS: URINE BILIRUBIN - DIPSTICK NEGATIVE (NEGATIVE); URINE BLOOD DIPSTICK NEGATIVE (NEGATIVE); URINE COLOR YELLOW; URINE GLUCOSE - DIPSTICK NEGATIVE (NEGATIVE); URINE KETONE NEGATIVE (NEGATIVE); URINE LEUK ESTERASE NEGATIVE (NEGATIVE); URINE NITRITE - DIPSTICK NEGATIVE (Negative); URINE PROTEIN - DIPSTICK NEGATIVE (NEG-TRACE); URINE UROBILINOGEN - DIPSTICK 0.2 E.U./dL (0.2)
--- NOTE | 2021-04-03 18:44 | NUR ---
Reassessment of patient completed. No distress noted.
--- NOTE | 2021-04-03 19:19 | NUR ---
REPORT GIVEN TO ICU
--- NOTE | 2021-04-03 19:20 | NUR ---
SBAR REPORT RECEIVED FROM HUNTER SANCHEZ, IN ED.
--- NOTE | 2021-04-03 19:30 | NUR ---
RECEIVED PATIENT TO BED 7 VIA STRETCHER. PATIENT AWAKE, ALERT AND ORIENTED. VSS. NO DISTRESS NOTED. ORIENTED TO ROOM. INSTRUCTED ON USE OF BED CONTROLS AND CALL LIGHT. BED IN LOW POSITION, ALARM ACTIVATED, PATIENT FALL RISK. CALL LIGHT WITHIN REACH.
--- NOTE | 2021-04-03 19:39 | NUR ---
PT TRANSPORTED TO 7
[2021-04-03 19:45] VITALS: BP 147/81
[2021-04-04] VITALS (9 sets, daily range): BP systolic 117–131; BP diastolic 61–93
--- NOTE | 2021-04-04 04:10 | NUR ---
PATIENT RESTING EYES CLOSED. FLEET MAINTENANCE MANAGER AT BEDSIDE FOR A.M. LABS, PATIENT TOLERATED WELL. SCD'S APPLIED AT THIS TIME. PATIENT DENIES PAIN AT THIS TIME. BED IN LOW POSITION, ALARM ACTIVATED. CALL LIGHT WITHIN REACH.
[2021-04-04 05:20] LABS: HEMATOCRIT 43.4 % (37.0-47.0); HEMOGLOBIN 13.9 g/dl (12.0-16.0); MEAN CELL VOLUME 91.2 fL CALC (80.0-100.0); MEAN CORPUSCULAR HGB 29.2 pG CALC (26.0-32.0); RED BLOOD COUNT 4.76 mill/uL (4.20-5.60); RED CELL DISTRI WIDTH 14.8 % (11.5-15.5)
[2021-04-04 05:33] LABS: ANION GAP 12 (6-22 (CALC)); BUN 6 mg/dL (8-23); BUN/CREATININE RATIO 11 (12-20 (CALC)); CALCULATED LDLCHOLESTEROL 99 mg/dL (62-129 (CALC)); CHLORIDE 105 mmol/l (95-108); CHOLESTEROL HDL RATIO 3.5 (<4.4 (CALC)); CREATININE 0.5 mg/dL (0.5-1.0); GFR > 60 ML/MIN (>=60 (CALC)); GFR FOR AFR.AMER. > 60 ML/MIN (>=60 (CALC)); HDL CHOLESTEROL 52 mg/dL (>=40); POTASSIUM 4.3 mmol/l (3.5-5.1); SODIUM 138 mmol/l (137-146); TOTAL CHOLESTEROL 179 mg/dl (0-199); TOTAL TRIGLYCERIDES 142 mg/dl (30-149); VLDL CHOLESTROL 28 mg/dl (1-41 (CALC))
[2021-04-04 05:34] LABS: CARBON DIOXIDE 25 mmol/l (22-30)
--- NOTE | 2021-04-04 07:00 | NUR ---
REPORT RECEIVED FROM LAURA ALMANZAR. PT RESTING SEMI-FOWLERS. AWAKE AND ALERT. NOT ORIENTATED TO SITUATION OR PLACE. VSS. ASSESSMENT PREFORMED. PT INSTRUCTED OF CALL LIGHT, STATES UNDERSTANDING. DENIES PAIN, SOB OR DISCOMFORT. BED ALARM ON AND ACTIVATED.
--- NOTE | 2021-04-04 12:01 | NUR ---
PT RESTING IN BED SEMI-FOWLERS. DENIES PAIN, SOB OR DISCOMFORT. TOLERATING LUNCH. VSS. CALL LIGHT WITHIN REACH. BED ALARM ON.
--- NOTE | 2021-04-04 12:38 | NUR ---
OCONNOR CATHETER REMOVED AT THIS TIME. 250CC OF SRIRAM URINE EMPTIED. PT TOLERATED PROCEDURE WELL. BRIEF PLACED PER PATIENTS REQUEST, R/T INCONTINENCE. AWAITING EVALUATION OF PHYSICAL THERAPIST. CASE MANAGEMENT IN TO EVALUATE PT'S HOME STATUS FOR POSSIBLE DISCHARGE HOME.
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
--- NOTE | 2021-04-04 17:36 | NUR ---
REPORT CALLED TO LAURA MERCEDES. PT BELONGINGS GATHERED AND SENT WITH PT. PT STABLE AT TIME OF DEPARTURE.
--- NOTE | 2021-04-04 18:02 | NUR ---
PT ARRIVES TO ROOM 272 VIA WHEELCHAIR ACCOMPANIED BY FABIOLA SANCHEZ. PT IS ALERT AND ORIENTED X 3, LUNGS CLEAR, PLACED ON 2 LPM NC. PT HAS EATEN SUPPER WHILE IN ICU. NO DISTRESS, NO COMPLAINTS. PT ORIENTED TO ROOM.
--- NOTE | 2021-04-05 00:30 | NUR ---
PT RESTING IN BED, NO SIGNS OF DISTRESS NOTED, RESP EVEN AND UNLABORED. PT VOICES NO NEEDS OR COMPLAINTS AT THIS TIME. CALL LIGHT IN REACH, CONTINUE TO MONITOR.
[2021-04-05 04:43] VITALS: BP 127/77
[2021-04-05 05:08] LABS: HEMATOCRIT 41.8 % (37.0-47.0); MEAN CELL VOLUME 93.1 fL CALC (80.0-100.0); MEAN CORPUSCULAR HGB CONC 31.1 g/dL CAL (32.0-36.0); RED BLOOD COUNT 4.49 mill/uL (4.20-5.60)
[2021-04-05 05:23] LABS: ANION GAP 7 (6-22 (CALC)); BUN 13 mg/dL (8-23); BUN/CREATININE RATIO 22 (12-20 (CALC)); CHLORIDE 101 mmol/l (95-108); CREATININE 0.6 mg/dL (0.5-1.0); GFR > 60 ML/MIN (>=60 (CALC)); GFR FOR AFR.AMER. > 60 ML/MIN (>=60 (CALC)); MAGNESIUM 1.8 mg/dL (1.6-2.3); POTASSIUM 4.2 mmol/l (3.5-5.1); SODIUM 135 mmol/l (137-146)
[2021-04-05 05:25] LABS: CARBON DIOXIDE 31 mmol/l (22-30)
--- NOTE | 2021-04-05 07:15 | NUR ---
REPORT RECEIVED FROM LAURA GONZALES
--- NOTE | 2021-04-05 09:00 | NUR ---
PT RESTING IN SEMI FOWLERS POSITION,A&O X3 WITH FORGETFULNESS NOTED;VS OBTAINED AND ASSESSMENT COMPLETED;PT DENIES ANY CURRENT PAIN OR DISCOMFORTS,PAIN SCALE AND REPORTING EDUCATED;RESPIRATIONS EVEN AND UNLABORED ON O2 @ 2L VIA NC, CLEAR LUNG SOUNDS NOTED;ABDOMEN SOFT ON PALPATION AND ACTIVE IN ALL 4 QUADRANTS;STRONG PEDAL PULSES;SKIN INTACT;TELE MONITORING IN PLACE;#20G TO RAC REMOVED WITH CATHETER INTACT DUE TO BEING DISLODGED, NEW #24G STARTED TO LH ON 2ND ATTEMPT BY THIS WRITTER,PT TOLERATED WELL;FRESH COFFEE PROVIDED PER REQUEST;PT DENIES ANY ADDITIONAL NEEDS AND IS ENCOURAGED TO CALL FOR ASSISTANCE IF NEEDED;FALL PRECAUTIONS IN PLACE WITH BED IN THE LOWEST POSITION AND BED ALARM ON FOR SAFETY;CALL LIGHT IN REACH;WILL CONTINUE TO MONITOR
[2021-04-05 09:01] VITALS: BP 117/69
[2021-04-05 11:18] VITALS: BP 113/73
--- NOTE | 2021-04-05 11:33 | NUR ---
AT BEDSIDE DISCUSSING POC
--- NOTE | 2021-04-05 12:30 | NUR ---
PT RESTING IN SEMI FOWLERS POSITION;RESPIRATIONS EVEN AND UNLABORED ON O2 @ 2L VIA NC;PT DENIES ANY CURRENT PAIN OR NEEDS;TELE MONITORING IN PLACE;IV SITE PATENT;PT DENIES ANY ADDITIONAL NEEDS AND IS ENCOURAGED TO CALL FOR ASSISTANCE IF NEEDED;FALL PRECAUTIONS IN PLACE WITH CALL LIGHT IN REACH;WILL CONTINUE TO MONITOR
--- NOTE | 2021-04-05 13:20 | NUR ---
PT REPORTS HEADACHE PAIN AND REQUESTS PAIN MEDICATION,PT MEDICATED WITH PRN TYLENOL 650MG PO;WILL CONTINUE TO MONITOR
[2021-04-05 15:47] VITALS: BP 132/73
--- NOTE | 2021-04-05 15:56 | NUR ---
PT APPEARS TO BE SLEEPING IN SEMI FOWLERS POSITION;RESPIRATIONS EVEN AND UNLABORED ON O2 @ 2L VIA NC;NO S/S OF DISTRESS NOTED;TELE MONITORING IN PLACE;IV SITE PATENT;ALL SAFETY PRECAUTIONS REMAIN IN PLACE WITH BED IN THE LOWEST POSITION AND CALL LIGHT IN REACH;WILL CONTINUE TO MONITOR
[2021-04-05 19:13] VITALS: BP 122/67
[2021-04-06] VITALS: BP 107/63
[2021-04-06 04:00] VITALS: BP 131/76
[2021-04-06 05:03] LABS: HEMATOCRIT 40.1 % (37.0-47.0); HEMOGLOBIN 12.5 g/dl (12.0-16.0); MEAN CELL VOLUME 93.9 fL CALC (80.0-100.0); MEAN CORPUSCULAR HGB 29.3 pG CALC (26.0-32.0); MEAN CORPUSCULAR HGB CONC 31.2 g/dL CAL (32.0-36.0); RED BLOOD COUNT 4.27 mill/uL (4.20-5.60)
[2021-04-06 05:08] LABS: ANION GAP 10 (6-22 (CALC)); BUN 11 mg/dL (8-23); BUN/CREATININE RATIO 19 (12-20 (CALC)); CARBON DIOXIDE 26 mmol/l (22-30); CHLORIDE 104 mmol/l (95-108); CREATININE 0.6 mg/dL (0.5-1.0); GFR > 60 ML/MIN (>=60 (CALC)); GFR FOR AFR.AMER. > 60 ML/MIN (>=60 (CALC)); MAGNESIUM 1.7 mg/dL (1.6-2.3); POTASSIUM 3.7 mmol/l (3.5-5.1); SODIUM 136 mmol/l (137-146)
--- NOTE | 2021-04-06 07:00 | NUR ---
RECIEVED REPORT FROM LAURA GONZALES
[2021-04-06 08:21] VITALS: BP 119/76
--- NOTE | 2021-04-06 08:21 | NUR ---
PT RESTING IN SEMI FOWLERS POSITION. PT IS A/O X3 WITH SOME REPORTS OF CONFUSION. PT IS A/O X3. ASSESSMENT AND VITALS COMPLETED. BP 119/76, HR 96, O2 94% ON 2L NC. RESPIRATIONS ARE EVEN AND UNLABORED WITH NO DISTRESS NOTED. LUNG SOUNDS ARE DIMINISHED IN LOWER LOBES. HEART RHYTHM NORMAL WITH TELE IN PLACE, SR PER ER MONITORING. BOWEL SOUNDS ARE ACTIVE, LBM 04/05/21. PULSES STRONG. #24G LH FLUSHED, SITE APPEARS HEALTHY AND PATENT. 1+ EDEMA NOTED TO BLE. PT DENIES OF ANY PAINS OR DISCOMFORTS A5T THIS TIME. ALL SAFETY PRECAUTIONS ARE IN PLACE WITH CALL LIGHT IN REACH. WILL CONTINUE TO MONITOR.
--- NOTE | 2021-04-06 10:00 | NUR ---
DR CH AND YON,ANRP AT BEDSIDE
[2021-04-06 10:59] VITALS: BP 119/76
--- NOTE | 2021-04-06 11:48 | NUR ---
Pt seen this am stated she was going home, she was agreeable with PT treatment. Pt moved supine to and from sit indep and was able to roll in bed without assist of bed rails. Pt ambulated 2 x 80 with gait belt/non skid socks and CGA withou LOB noted but has a lateral trunk sway. Standing balance activities performed with CGA, marching in place, wt shifting side to side and forward and backwards. Pt 02 sats were 96% and decreased to 91% after walking, with recovery after short rest. [facility], home with home health.
--- NOTE | 2021-04-06 12:44 | NUR ---
PT RESTING IN SEMI FOWLERS POSITION. RESPIRATIONS ARE EVEN AND UNLABORED 2L NC. TELE MONITORINGF IN PLACE. PT INFORMED OF DC. PT VERBLAIZED UNDERSTANDING. PT DENIES OF ANY ADDITIONAL NEEDS AT THIS TIME. ALL SAFETY PRECAUTIONS ARE IN PLACE WITH CALL LIGHT IN REACH. WILL CONTINUE TO MONITOR
--- NOTE | 2021-04-06 13:02 | NUR ---
PT EDUCATED ON DC INSTRUCTIONS AND CONTINUE HOME MEDICATIONS. PT VERBALIZED UNDERSTANDING. #24G LH REMOVED WITH CATH STILL INTACT. TELE MONITORING REMOVED. ER INFORMED. TRANSPORTATION CALLED. PT STATES TRANSPORTATION CAN NOT GET INTO HOME FOR O2. ANASTASIA MARVIN INFORMED. PT STATES SHE LIVES LESSS THAN A MILE. ORDERS TO CONTINUE HOME WITH DC.
--- NOTE | 2021-04-06 13:14 | NUR ---
Discharge instructions given. Patient verbalizes understanding of same. Discharged in stable condition via Wheelchair to Home with staff. All belongings sent with pt. [place] DC HOME WITH [facility] AND PT IN STABLE CONDITION ACCOMPAINED BY DIVYA COY WITH ALL DC INSTRUCTRIONS AND BELONGINGS.
== END 2021-04-06 13:14 | disposition home health service (06) ==
LOC: ED 16:07 → ED-I 17:57 → ED 17:57 → MS2 18:09 → ICU 18:09 → MS2 04-04 17:45
PROVIDERS: ADMIT Hospitalist; ATTEND Hospitalist
PROC: 0T9B70Z Drainage of Bladder with Drainage Device, Via Natural or Artificial Opening (ICD-10-PCS; principal; 2021-04-03)
DX: T42.4X1A Poisoning by benzodiazepines, accidental (unintentional), initial encounter (principal); F13.10 Sedative, hypnotic or anxiolytic abuse, uncomplicated; I10 Essential (primary) hypertension; J43.9 Emphysema, unspecified; J96.12 Chronic respiratory failure with hypercapnia; J96.11 Chronic respiratory failure with hypoxia; F31.9 Bipolar disorder, unspecified; E78.5 Hyperlipidemia, unspecified; F41.0 Panic disorder [episodic paroxysmal anxiety]; K21.9 Gastro-esophageal reflux disease without esophagitis; F17.210 Nicotine dependence, cigarettes, uncomplicated; Y92.009 Unspecified place in unspecified non-institutional (private) residence as the place of occurrence of the external cause; Z91.81 History of falling; Z99.81 Dependence on supplemental oxygen; Z20.822 Contact with and (suspected) exposure to COVID-19
CPT/HCPCS: G0378; J1650

== ENCOUNTER 2021-04-06 19:11 | Emergency (ER) | payer MEDICARE, MEDICAID ==
[~2021-04-06] VITALS: Ht 160 cm; Wt 66.0 kg
[2021-04-06 22:35] VITALS: BP 157/78
== END 2021-04-06 22:35 | disposition home or self-care (01) ==
LOC: ED 19:11
PROC: 0HQ1XZZ Repair Face Skin, External Approach (ICD-10-PCS; principal; 2021-04-06)
DX: S01.81XA Laceration without foreign body of other part of head, initial encounter (principal); S40.011A Contusion of right shoulder, initial encounter; I10 Essential (primary) hypertension; J44.9 Chronic obstructive pulmonary disease, unspecified; F41.9 Anxiety disorder, unspecified; F31.9 Bipolar disorder, unspecified; F17.200 Nicotine dependence, unspecified, uncomplicated; W01.0XXA Fall on same level from slipping, tripping and stumbling without subsequent striking against object, initial encounter; Y92.007 Garden or yard of unspecified non-institutional (private) residence as the place of occurrence of the external cause

== ENCOUNTER 2021-04-12 11:37 | Observation (INO) | payer MEDICARE, MEDICAID ==
[~2021-04-12] VITALS: Ht 160 cm; Wt 68.1 kg
[2021-04-12 12:29] LABS: URINE BILIRUBIN - DIPSTICK NEGATIVE (NEGATIVE); URINE BLOOD DIPSTICK NEGATIVE (NEGATIVE); URINE COLOR YELLOW; URINE GLUCOSE - DIPSTICK NEGATIVE (NEGATIVE); URINE KETONE NEGATIVE (NEGATIVE); URINE PH 8.5 (4.5-8.0); URINE PROTEIN - DIPSTICK NEGATIVE (NEG-TRACE); URINE UROBILINOGEN - DIPSTICK 0.2 E.U./dL (0.2)
[2021-04-12 12:32] LABS: URINE LEUK ESTERASE SMALL (NEGATIVE); URINE NITRITE - DIPSTICK POSITIVE (Negative)
[2021-04-12 12:33] LABS: HEMATOCRIT 43.4 % (37.0-47.0); HEMOGLOBIN 13.7 g/dl (12.0-16.0); IMMATURE GRANULOCYTES 0.2 % (0.0-5.0); MEAN CELL VOLUME 91.6 fL CALC (80.0-100.0); MEAN CORPUSCULAR HGB 28.9 pG CALC (26.0-32.0); MEAN CORPUSCULAR HGB CONC 31.6 g/dL CAL (32.0-36.0); NEUT# 7.18 thou/uL (2.00-7.15); RED BLOOD COUNT 4.74 mill/uL (4.20-5.60); RED CELL DISTRI WIDTH 14.7 % (11.5-15.5)
[2021-04-12 12:40] LABS: URINE BACTERIA MODERATE hpf; URINE SQUAMOUS EPITHELIAL CELL FEW EPI/hpf (0-FEW)
[2021-04-12 12:41] LABS: URINE AMORPH SEDIMENT MODERATE hpf (NONE-FEW)
[2021-04-12 12:48] LABS: ALBUMIN 3.5 g/dL (3.2-5.0); ALKALINE PHOSPHATASE 119 u/l (38-126); ANION GAP 8 (6-22 (CALC)); BILIRUBIN, TOTAL 0.5 mg/dL (0.0-1.4); BUN 8 mg/dL (8-23); BUN/CREATININE RATIO 16 (12-20 (CALC)); CARBON DIOXIDE 31 mmol/l (22-30); CHLORIDE 102 mmol/l (95-108); CREATININE 0.5 mg/dL (0.5-1.0); GFR > 60 ML/MIN (>=60 (CALC)); GFR FOR AFR.AMER. > 60 ML/MIN (>=60 (CALC)); POTASSIUM 3.6 mmol/l (3.5-5.1); SGOT/AST 14 u/l (9-36); SODIUM 137 mmol/l (137-146); TOTAL PROTEIN 6.8 g/dL (6.3-8.2)
[2021-04-12 16:22] VITALS: BP 152/88
[2021-04-12 20:00] VITALS: BP 129/88
[2021-04-13] VITALS: BP 131/76
[2021-04-13 04:00] VITALS: BP 122/73
[2021-04-13 05:54] LABS: HEMATOCRIT 40.4 % (37.0-47.0); HEMOGLOBIN 12.7 g/dl (12.0-16.0); MEAN CELL VOLUME 93.5 fL CALC (80.0-100.0); MEAN CORPUSCULAR HGB 29.4 pG CALC (26.0-32.0); MEAN CORPUSCULAR HGB CONC 31.4 g/dL CAL (32.0-36.0); RED BLOOD COUNT 4.32 mill/uL (4.20-5.60); RED CELL DISTRI WIDTH 15.1 % (11.5-15.5)
[2021-04-13 06:12] LABS: ANION GAP 9 (6-22 (CALC)); BUN 8 mg/dL (8-23); BUN/CREATININE RATIO 15 (12-20 (CALC)); CARBON DIOXIDE 30 mmol/l (22-30); CHLORIDE 103 mmol/l (95-108); CREATININE 0.6 mg/dL (0.5-1.0); GFR > 60 ML/MIN (>=60 (CALC)); GFR FOR AFR.AMER. > 60 ML/MIN (>=60 (CALC)); MAGNESIUM 1.8 mg/dL (1.6-2.3); POTASSIUM 3.9 mmol/l (3.5-5.1); SODIUM 138 mmol/l (137-146)
[2021-04-13 08:04] VITALS: BP 125/84
[2021-04-13 10:24] VITALS: BP 124/74
[2021-04-13] MEDS ORDERED: KEFLEX500 MG PO (12:58)
[2021-04-13 14:27] VITALS: BP 124/74
== END 2021-04-13 15:13 | disposition home health service (06) ==
LOC: ED 11:37 → ED-I 13:12 → ED 13:45 → MS2 13:46
PROVIDERS: Family Medicine; ADMIT Hospitalist; ATTEND Hospitalist
DX: R07.89 Other chest pain (principal); R41.0 Disorientation, unspecified; N39.0 Urinary tract infection, site not specified; S00.11XA Contusion of right eyelid and periocular area, initial encounter; S40.011A Contusion of right shoulder, initial encounter; R53.1 Weakness; S22.080D Wedge compression fracture of T11-T12 vertebra, subsequent encounter for fracture with routine healing; I10 Essential (primary) hypertension; J43.9 Emphysema, unspecified; F41.9 Anxiety disorder, unspecified; F31.9 Bipolar disorder, unspecified; F17.210 Nicotine dependence, cigarettes, uncomplicated; B95.7 Other staphylococcus as the cause of diseases classified elsewhere; W19.XXXA Unspecified fall, initial encounter; Y92.009 Unspecified place in unspecified non-institutional (private) residence as the place of occurrence of the external cause; X58.XXXD Exposure to other specified factors, subsequent encounter; Z91.81 History of falling; Z20.822 Contact with and (suspected) exposure to COVID-19
CPT/HCPCS: G0378

== ENCOUNTER 2021-04-17 14:37 | Inpatient (IN) | payer MEDICARE, MEDICAID ==
[~2021-04-17] VITALS: Ht 160 cm; Wt 71.0 kg
[~2021-04-17 14:37] MED LIST changes: +KEFLEX500 MG PO
--- NOTE | 2021-04-17 14:37 | NUR ---
PT TO ROOM VIA EMS STRETCHER.
--- NOTE | 2021-04-17 14:43 | NUR ---
PER EMS SPO2 88% ON ROOM AIR AT THIS TIME. PATIENT OPENS EYES TO VERBAL/TACTILE STIMULI. BIPAP INITIATED.
--- NOTE | 2021-04-17 14:50 | NUR ---
PATIENT TO ROOM VIA EMS AND PHYSICIAN AT BEDSIDE FOR EVAL
--- NOTE | 2021-04-17 15:00 | NUR ---
PATIENT SPO2 100% ON BIPAP AT THIS TIME. SHE OPENS EYES TO TACTILE STIMULI.
[2021-04-17 15:33] LABS: HEMOGLOBIN 13.5 g/dl (12.0-16.0); IMMATURE GRANULOCYTES 0.1 % (0.0-5.0); MEAN CELL VOLUME 96.3 fL CALC (80.0-100.0); MEAN CORPUSCULAR HGB 29.5 pG CALC (26.0-32.0); MEAN CORPUSCULAR HGB CONC 30.7 g/dL CAL (32.0-36.0); NEUT# 4.39 thou/uL (2.00-7.15); RED BLOOD COUNT 4.57 mill/uL (4.20-5.60); RED CELL DISTRI WIDTH 15.6 % (11.5-15.5)
[2021-04-17 15:40] LABS: ALBUMIN 3.6 g/dL (3.2-5.0); ALKALINE PHOSPHATASE 99 u/l (38-126); BUN 9 mg/dL (8-23); BUN/CREATININE RATIO 16 (12-20 (CALC)); CARBON DIOXIDE 35 mmol/l (22-30); CHLORIDE 102 mmol/l (95-108); CREATININE 0.5 mg/dL (0.5-1.0); ETHYL ALCOHOL 0 mg/dl (0-30); GFR > 60 ML/MIN (>=60 (CALC)); GFR FOR AFR.AMER. > 60 ML/MIN (>=60 (CALC)); LIPASE 10 u/l (23-300); SGOT/AST 22 u/l (9-36); SODIUM 138 mmol/l (137-146); TOTAL PROTEIN 7.4 g/dL (6.3-8.2)
[2021-04-17 15:42] LABS: ACT PARTIAL THROMBO TIME 27.1 SECONDS (20.0-32.5); PROTHROMBIN TIME 10.4 SECONDS (9.0-12.5)
[2021-04-17 15:50] LABS: ANION GAP 6 (6-22 (CALC)); BILIRUBIN, TOTAL 0.8 mg/dL (0.0-1.4)
--- NOTE | 2021-04-17 15:50 | NUR ---
PATIENT STATUS REMAINS THE SAME AT THIS TIME. VSS.
--- NOTE | 2021-04-17 16:48 | NUR ---
PATIENT TO CT SCAN IN STABLE CONDITION. SHE OPENS EYES TO VERBAL/TACTICLE STIMULI.
[2021-04-17 16:59] LABS: URINE BILIRUBIN - DIPSTICK NEGATIVE (NEGATIVE); URINE BLOOD DIPSTICK NEGATIVE (NEGATIVE); URINE COLOR YELLOW; URINE GLUCOSE - DIPSTICK NEGATIVE (NEGATIVE); URINE KETONE NEGATIVE (NEGATIVE); URINE LEUK ESTERASE NEGATIVE (NEGATIVE); URINE PROTEIN - DIPSTICK NEGATIVE (NEG-TRACE); URINE SPECIFIC GRAVITY 1.025; URINE UROBILINOGEN - DIPSTICK 0.2 E.U./dL (0.2)
[2021-04-17 17:00] LABS: URINE NITRITE - DIPSTICK POSITIVE (Negative)
[2021-04-17 17:06] LABS: URINE BACTERIA RARE hpf; URINE RBC 0-2 RBC/hpf (0-5); URINE SQUAMOUS EPITHELIAL CELL FEW EPI/hpf (0-FEW); URINE WBC 0-2 WBC/hpf (0-5)
--- NOTE | 2021-04-17 17:08 | NUR ---
PT TRANSPORTED TO CT SCAN AND BACK TO ER ON BIPAP WITH PREVIOUS SETTINGS 23/02 B/U RATE 24 40%. PT TOLERATED TRANSPORT WELL.
--- NOTE | 2021-04-17 17:20 | NUR ---
PATIENT RESTING COMFORTABLY IN STRETCHER, SPO2 99% ON BIPAP.
--- NOTE | 2021-04-17 17:45 | NUR ---
ATTEMPTING TO WAKE PATIENT WITH VERBAL STIMULI, PATIENT CRIES OUT TO TACTILE STIMULI.
--- NOTE | 2021-04-17 18:30 | NUR ---
PATIENT AWAKENS AND OPENS EYES WHEN READJUSTED BIPAP MASK.
--- NOTE | 2021-04-17 19:04 | NUR ---
PATIENT REPORT TO LAURA VEE.
--- NOTE | 2021-04-17 19:08 | NUR ---
PT TRANSPORTED TO ICU VIA STRETCHER WITH HOUSE SUP AND RT AT BEDSIDE FOR ASSIST.
[2021-04-17 19:45] VITALS: BP 135/69
--- NOTE | 2021-04-17 19:45 | NUR ---
RECEIVED INTO ICU BED 7 FROM ER VIA STRETCHER ON BIPAP ACCOMPANIED BY RT VIRAJ AND NURSING ELECTRONIC IMAGER MARINA. TRANSFERRED TO BED WITH 4 PERSON ASSIST. PATIENT AROUSES TO NAME. ABLE TO MOVE EXTREMITIES. STILL VERY LETHARGIC ATTEMPTS AT SPEECH ARE GARBLED AND MUFFLED D/T BIPAP MASK. PLACED ON GROUP HOME WORKER SHOWING SR. BIPAP SETTINGS IPAP 18/EPAP 10, RR-24, FIO2 40% BREATH SOUNDS DIMINISHED THROUGHOUT. 3-4+ PITTING EDEMA OF BLE. SALINE LOCK IN RAC AND LH, BOTH SITES BENIGN. EXPLAINED PLAN OF CARE. WILL NEED REINFORCEMENT WHEN MORE ALERT. CALL CARTER IN REACH.
[2021-04-17 20:00] VITALS: BP 123/59
[2021-04-17 21:00] VITALS: BP 101/54
[2021-04-17 22:00] VITALS: BP 117/57
--- NOTE | 2021-04-17 22:00 | NUR ---
VSS. SR ON MONITOR. RESP NON-LABORED.
[2021-04-17 23:00] VITALS: BP 119/64
[2021-04-18] VITALS (24 sets, daily range): BP systolic 87–124; BP diastolic 50–66
--- NOTE | 2021-04-18 | NUR ---
VSS. O2 SAT 90'S. REMAINS ON BIPAP SAME SETTINGS. REMAINS LETHARGIC. SR ON MONITOR.
--- NOTE | 2021-04-18 02:00 | NUR ---
NO CHANGES TO REPORT. VSS. REMAINS LETHARGIC BUT AROUSABLE TO NAME.
--- NOTE | 2021-04-18 04:00 | NUR ---
VSS. PATIENT HAS TOLERATED BIPAP WELL. RESP NON-LABORED. O2 SAT UPPER 90'S-100% MONITOR SR.
[2021-04-18 05:46] LABS: HEMATOCRIT 41.8 % (37.0-47.0); HEMOGLOBIN 12.8 g/dl (12.0-16.0); MEAN CELL VOLUME 95.2 fL CALC (80.0-100.0); MEAN CORPUSCULAR HGB 29.2 pG CALC (26.0-32.0); MEAN CORPUSCULAR HGB CONC 30.6 g/dL CAL (32.0-36.0); RED BLOOD COUNT 4.39 mill/uL (4.20-5.60); RED CELL DISTRI WIDTH 15.3 % (11.5-15.5)
--- NOTE | 2021-04-18 05:54 | NUR ---
BIPAP STANDBY. PLACED ON 2L NC.
[2021-04-18 05:56] LABS: ANION GAP 9 (6-22 (CALC)); BUN 9 mg/dL (8-23); BUN/CREATININE RATIO 17 (12-20 (CALC)); CARBON DIOXIDE 33 mmol/l (22-30); CHLORIDE 102 mmol/l (95-108); CREATININE 0.5 mg/dL (0.5-1.0); GFR > 60 ML/MIN (>=60 (CALC)); GFR FOR AFR.AMER. > 60 ML/MIN (>=60 (CALC)); MAGNESIUM 1.9 mg/dL (1.6-2.3); POTASSIUM 4.7 mmol/l (3.5-5.1); SODIUM 139 mmol/l (137-146)
--- NOTE | 2021-04-18 06:00 | NUR ---
O2 SAT 100% ON O2 AT 2 L NC. PATIENT OPENS EYES TO NAME. FOLLOWS COMMANDS. PATIENT IS VERY WEAK. BRUISE NOTED AND CUT NOTED TO RIGHT FOREHEAD.
--- NOTE | 2021-04-18 06:57 | NUR ---
PT C NAD. VSS. RESTING COMFORTABLY, LAYING FLAT, HOB ELEVATED,ASLEEP. 2L NC C SPO2 =98. RR =14. LEAD FRONT END DEVELOPER TO MONITOR. NIV ON S/B AT THE BEDSIDE.
--- NOTE | 2021-04-18 07:18 | NUR ---
REPORT RECEIVED FROM LAURA BRAXTON. PT RESTING SEMI-FOWLERS. VSS, WEARING 2L OF OXYGEN SPO2 IS 98%. PT RESPONDS TO VERBAL STIMULI. ANSWERS QUESTIONS BUT DOES NOT FOLLOW COMMANDS TO OPEN EYES OR SQUEEZE HANDS AT THIS TIME. ASSESSMENT PREFORMED AND SAFETY REVIEWED. WILL CONTINUE TO MONITOR CLOSELY.
--- NOTE | 2021-04-18 10:05 | NUR ---
FAMILY ON PHONE AT THIS TIME. ASKING FOR UPDATE, REQUESTING TO SPEAK WITH CASE MANAGEMENT ABOUT OPTIONS FOR PATIENT SAFETY WHEN DISCHARGED. PT REMAINS LETHARGIC. NEURO STATUS UNCHANGED.
--- NOTE | 2021-04-18 15:00 | NUR ---
Physical Therapist attempted to conduct initial evaluation with patient today, but had difficulty to wake the patient up from deep sleep. Physical therapist tried multiple times to stimulate the patient to participate, but she would not open her eyes (informed the nurse about attempts to wake the patient up). Physical therapist will just try again next time.
--- NOTE | 2021-04-18 15:57 | NUR ---
PT AWAKE AND FIDGITING WITH LINENS STATING "IM TRYING TO DRINK THIS COKE." PT GIVEN ACTUAL COKE AND TOLERATED WITH STRAW WITH NO S/S OF ASPIRATION. PT VS TAKEN AND STABLE. SAFETY REVIEWED. BED ALARM ON. WILL CONTINUE TO MONITOR.
--- NOTE | 2021-04-18 17:14 | NUR ---
PT C NAD. VSS. HOME AND FAMILY LIVING PROFESSOR TO MONITOR.
--- NOTE | 2021-04-18 17:45 | NUR ---
PT AWAKE AND MORE ALERT, STILL HAS SOME CONFUSION. SET UP TO 90 DEGREES TO EAT, PT TOLERATED TWO SPOON FULLS OF CORN AND PT ASPIRATED. ABLE TO CLEAR WITH COUGH. SUCTION SETUP AT BS. ASSISTED WITH SUCTIONING. PT REQUESTING TO HAVE BREAK WITH MEAL. TOLERATED LIQUID TEA. WILL KEEP TRAY AT BS IF PATIENT WANTS TO ATTEMPT AGAIN. SPO2 IS 95%. CALL LIGHT WITHIN REACH, EDUCATION OF DEVICE RE-INFORCED. BED ALARM ON.
--- NOTE | 2021-04-18 19:00 | NUR ---
REPORT RECEIVED FROM Wyatt CAMERON RN. CARE OF PT ASSUMED AT THIS TIME.
--- NOTE | 2021-04-18 19:54 | NUR ---
PT REQUESTING TO GO SMOKE. PT ADVISED OF NO SMOKING POLICY. PT ASKS "WHAT IF I GO OUT ON THE PORCH?". PT IS DISORIENTED TO PLACE AND TIME. ORIENTED TO SELF. WHEN ORIENTED TO PLACE PT STATES "HOW DID I GET HERE? DID I WALK?". PT REQUESTING "NERVE PILL".
--- NOTE | 2021-04-18 20:56 | NUR ---
PT YELLS OUT FROM ROOM, "WILL SOMEONE HELP ME GET OUT OF THIS BED". PT REORIENTED TO SURRONDINGS. AGREES TO STAY IN BED AND CALL PRN. CALL CARTER WITHIN REACH.
[2021-04-19] VITALS (20 sets, daily range): BP systolic 99–139; BP diastolic 46–73
--- NOTE | 2021-04-19 01:15 | NUR ---
PT APPEARS TO BE SLEEPING COMFORTABLY. LAYING IN BED SEMIFOWLERS. EYES CLOSED. RESPIRATIONS REGULAR AND UNLABORED. NO APPARENT DISTRESS. NON-INVASIVE HEMODYNAMICSON MONITOR WNL/BASELINE.
--- NOTE | 2021-04-19 02:30 | NUR ---
PT APPEARS TO BE SLEEPING COMFORTABLY. LAYING IN BED SEMIFOWLERS. EYES CLOSED. RESPIRATIONS REGULAR AND UNLABORED. NO APPARENT DISTRESS. NON-INVASIVE HEMODYNAMICSON MONITOR WNL/BASELINE.
--- NOTE | 2021-04-19 04:47 | NUR ---
Yazmin GARZA PRODUCTION GRAPHIC DESIGNER IN ROOM COLLECTING LAB WORK.
[2021-04-19 05:10] LABS: HEMATOCRIT 40.1 % (37.0-47.0); HEMOGLOBIN 12.3 g/dl (12.0-16.0); MEAN CORPUSCULAR HGB 29.1 pG CALC (26.0-32.0); MEAN CORPUSCULAR HGB CONC 30.7 g/dL CAL (32.0-36.0); RED BLOOD COUNT 4.22 mill/uL (4.20-5.60); RED CELL DISTRI WIDTH 15.2 % (11.5-15.5)
[2021-04-19 06:00] LABS: ANION GAP 6 (6-22 (CALC)); BUN 9 mg/dL (8-23); BUN/CREATININE RATIO 15 (12-20 (CALC)); CARBON DIOXIDE 34 mmol/l (22-30); CHLORIDE 101 mmol/l (95-108); CREATININE 0.6 mg/dL (0.5-1.0); GFR > 60 ML/MIN (>=60 (CALC)); GFR FOR AFR.AMER. > 60 ML/MIN (>=60 (CALC)); MAGNESIUM 1.9 mg/dL (1.6-2.3); POTASSIUM 4.1 mmol/l (3.5-5.1); SODIUM 138 mmol/l (137-146)
--- NOTE | 2021-04-19 07:46 | NUR ---
REPORT RECEIVED FROM LAURA ROMERO. PT AWAKE AND ALERT AND CONFUSED. PT ASSESSMENT PREFORMED, PT BOOSTED UP IN BED, AND GIVEN MEAL TRAY, VSS. BED ALARM ON AND IN PLACE. CALL LIGHT WITHIN REACH. INSTRUCTED PT TO CALL FOR ASSISTANCE. WILL CONTINUE TO MONITOR.
--- NOTE | 2021-04-19 10:00 | NUR ---
PT REQUESTING TO USE PHONE TO CALL SISTER. PT REMAINS CONFUSED ABOUT SITUATION. RE-EDUCATED OF EVENTS THAT TRANSPIRED. STATES UNDERSTANDING. VSS. PT DENIES PAIN, SOB OR DISCOMFORT. CALL LIGHT WITHIN REACH. BED ALARM ON AND IN PLACE. INSTRUCTED PT TO CALL FOR ASSISTANCE. STATES UNDERSTANDING.
--- NOTE | 2021-04-19 12:00 | NUR ---
PT REQUESTING TO GET OOB AND GO TO THE BATHROOM. PT IS UNSTEADY ON FEET. GIVEN BED SAM. PT HAD LARGE NUMEROUS DARK,HARD BM. DENIES PAIN, NO BLOOD NOTED WHEN CLEANING UP. VSS. CALL LIGHT WITHIN REACH. VOICES NO FURTHER DEMANDS. BED ALARM ON. INSTRUCTED PT TO CALL FOR ASSISTANCE, WILL CONTINUE TO MONITOR.
--- NOTE | 2021-04-19 12:37 | NUR ---
ALL CHARTING SHOULD BE UNDER LAURA HICKS. NOT LAURA ROMERO.
--- NOTE | 2021-04-19 14:00 | NUR ---
PT RESTING WITH EYES CLOSED. VSS, DOES NOT APPEAR TO BE IN ANY TYPE OF DISTRESS. WEARING OXYGEN. CALL LIGHT WITHIN REACH. BED ALARM ON. WILL CONTINUE TO MONITOR.
--- NOTE | 2021-04-19 16:00 | NUR ---
PT REQUESTING TO WATCH TV, VSS, CALL LIGHT WITHIN REACH. INSTRUCTED PT TO CALL FOR ASSISTANCE, STATES UNDERSTANDING.
--- NOTE | 2021-04-19 18:00 | NUR ---
PT ABLE TO FEED SELF ALL MEALS TODAY, APPEARS TO BE MORE ALERT SHIFT GOES ON. VSS, DENIES PAIN WITH THE EXCEPTION OF PAIN OVER RIGHT EYE. STATES TENDER AND THROBBING FROM FALL OUTSIDE OF FACILITY. GIVEN TYLENOL. CALL LIGHT WITHIN REACH. INSTRUCTED PT TO CALL FOR ASSISTANCE, VERBALIZES UNDERSTANDING.
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
--- NOTE | 2021-04-19 22:00 | NUR ---
RESTING WITH EYES CLSOED. VSS. RESP NON-LABORED. SR ON MONITOR.
[2021-04-20] VITALS (7 sets, daily range): BP systolic 117–163; BP diastolic 55–77
--- NOTE | 2021-04-20 | NUR ---
PATIENT HAS SLEPT PAST FEW HOURS. AWAKE NOW AND SLT CONFUSED. REORIENTS EASILY TO PLACE AND TIME. VSS. MONITOR SR.
--- NOTE | 2021-04-20 02:00 | NUR ---
RESTING WITH EYES CLOSED. RESP NNO-LABORED. VSS.
--- NOTE | 2021-04-20 04:15 | NUR ---
NO CHANGES TO REPORT. PATIENT CALM AND COOPERATIVE.
[2021-04-20 05:33] LABS: HEMATOCRIT 40.2 % (37.0-47.0); HEMOGLOBIN 12.8 g/dl (12.0-16.0); MEAN CORPUSCULAR HGB 29.3 pG CALC (26.0-32.0); MEAN CORPUSCULAR HGB CONC 31.8 g/dL CAL (32.0-36.0); RED BLOOD COUNT 4.37 mill/uL (4.20-5.60); RED CELL DISTRI WIDTH 14.8 % (11.5-15.5)
[2021-04-20 05:50] LABS: ANION GAP 7 (6-22 (CALC)); BUN 9 mg/dL (8-23); BUN/CREATININE RATIO 17 (12-20 (CALC)); CARBON DIOXIDE 33 mmol/l (22-30); CHLORIDE 100 mmol/l (95-108); CREATININE 0.5 mg/dL (0.5-1.0); GFR > 60 ML/MIN (>=60 (CALC)); GFR FOR AFR.AMER. > 60 ML/MIN (>=60 (CALC)); MAGNESIUM 1.8 mg/dL (1.6-2.3); SODIUM 136 mmol/l (137-146)
--- NOTE | 2021-04-20 06:10 | NUR ---
SLEPT FOR LONG INTERVALS. VSS. GOOD URINE OUTPUT THIS SHIFT-1500 ML.
--- NOTE | 2021-04-20 07:00 | NUR ---
ASSUMED CARE OF PT FROM LAURA MCDOWELL, PT APPEARS TO BE SLEEPING, NO S/S OF DISTRESS NOTED, VSS
--- NOTE | 2021-04-20 08:30 | NUR ---
ROUNDING AT BEDSIDE
--- NOTE | 2021-04-20 10:10 | NUR ---
SISTER AT BEDSIDE, CASE MANAGEMENT AT BEDSIDE. PT POC BEING DISCUSSED.
--- NOTE | 2021-04-20 12:00 | NUR ---
PT SITTING UP IN BED, FINISHING LUNCH, DENIES NEEDS, NO S/S OF DISTRESS NOTED
--- NOTE | 2021-04-20 15:35 | NUR ---
PT WORKING WITH PT AT BEDSIDE
--- NOTE | 2021-04-20 17:50 | NUR ---
REPORT RECEIVED FROM LAURA SCHULTZ
--- NOTE | 2021-04-20 17:50 | NUR ---
REPORT CALLED TO LAURA PETERS. PT TRANSPORTED TO RM 288 WITH BELONGINGS VIA WHEELCHAIR. NO S/S OFDISTRESS NOTED
--- NOTE | 2021-04-20 17:58 | NUR ---
PT ARRIVED TO MED/SURG ROOM 288 IN STABLE CONDITION VIA WC ACCOMPANIED BY DIVYA HIGH;PT AMBULATED WITH A WEAK GAIT AND X1 PERSON ASSIST TO BEDSIDE;PT A&O X3, ORIENTED TO ROOM AND CALL LIGHT SYSTEM;WT AND VS OBTAINED BY DIVYA LIMA;PT DENIES ANY CURRENT PAIN OR DISCOMFORTS,PAIN SCALE AND REPORTING EDUCATED;RESPIRATIONS EVEN AND UNLABORED ON RA;ABDOMEN SOFT ON PALPATION AND ACTIVE IN ALL 4 QUADRANTS;OCONNOR CATHETER PATENT DRAINING TO GRAVITY WITH EASE;WEAK PEDAL PULSES;#20G TO RAC PATENT;PT REMAINS IN CONTACT PRECAUTIONS DUE TO ESBL;PT DENIES ANY ADDITIONAL NEEDS AND IS ENCOURAGED TO CALL FOR ASSISTANCE IF NEEDED;FALL PRECAUTIONS IN PLACE WITH BED IN THE LOWEST POSITION AND CALL LIGHT IN REACH;WILL CONTINUE TO MONITOR
--- NOTE | 2021-04-20 19:00 | NUR ---
RECEIVED REPORT FROM NURSE LORRAINE, PATIENT RESTING IN BED, HOOKED ON O2 @ 2LPM VIA NC, CALL LIGHT AT REACH.
--- NOTE | 2021-04-20 20:00 | NUR ---
PATIENT ALERT ORIENTED, WITH SALINE LOCK ON RAC, PATENT FLUSHES WELL, HOOKED ON O2 @ 2LPM VIA NC, BREATHING UNLABORED, HEMATOMA NOTED ON RT EYE BROW, BRUSING ON SHOULDERS FROM FALL, WITH SALINE LOCK ON RAC PATENT FLUSHES WELL, HAS OCONNOR CATHETER DRAINING CLEAR YELLOW URINE, PATIENT IN ON CONTACT ISLATION FOR ESBL, ACTIVE BOWEL SOUNDS ON ALL QUADRANTS CALL LIGHT AT REACH.
--- NOTE | 2021-04-21 | NUR ---
PATIENT RESTING WITH EYES CLOSED, BREATHING EVEN UNLABORED CALL LIGHT AT REACH.
[2021-04-21 04:00] VITALS: BP 153/77
--- NOTE | 2021-04-21 04:53 | NUR ---
PATIENT RESTING IN BED EYES CLOSED BREATHING UNLABORED, NO DISCOMFORTS NOTED AT THIS TIME, CALL LIGHT AT REACH.
[2021-04-21 06:21] LABS: HEMATOCRIT 43.4 % (37.0-47.0); HEMOGLOBIN 13.8 g/dl (12.0-16.0); MEAN CELL VOLUME 91.6 fL CALC (80.0-100.0); MEAN CORPUSCULAR HGB 29.1 pG CALC (26.0-32.0); MEAN CORPUSCULAR HGB CONC 31.8 g/dL CAL (32.0-36.0); NEUT# 4.98 thou/uL (2.00-7.15); RED BLOOD COUNT 4.74 mill/uL (4.20-5.60)
[2021-04-21 06:54] LABS: ANION GAP 11 (6-22 (CALC)); BUN 9 mg/dL (8-23); BUN/CREATININE RATIO 17 (12-20 (CALC)); CARBON DIOXIDE 28 mmol/l (22-30); CHLORIDE 102 mmol/l (95-108); CREATININE 0.5 mg/dL (0.5-1.0); GFR > 60 ML/MIN (>=60 (CALC)); GFR FOR AFR.AMER. > 60 ML/MIN (>=60 (CALC)); MAGNESIUM 1.8 mg/dL (1.6-2.3); POTASSIUM 4.4 mmol/l (3.5-5.1); SODIUM 137 mmol/l (137-146)
--- NOTE | 2021-04-21 07:05 | NUR ---
REPORT RECEIVED FROM LAURA HAYWARD
[2021-04-21 08:02] VITALS: BP 125/67
--- NOTE | 2021-04-21 09:00 | NUR ---
PT RESTING IN SEMI FOWLERS POSITION, A&O X3;VS OBTAINED AND ASSESSMENT COMPLETED;PT REPORTS GENERALIZED PAIN RATING 6/10 ON THE PAIN SCALE AND REQUESTS PRN PAIN MEDICATION, PT TO BE MEDICATED WITH TYLENOL 650MG PO;RESPIRATIONS EVEN AND UNLABORED ON RA,CLEAR LUNG SOUNDS;ABDOMEN SOFT ON PALPATION AND ACTIVE IN ALL 4 QUADRANTS;WEAK PEDAL PULSES;GENERALIZED BRUSING NOTED THROUGHOUT BUT SKIN OTHERWISE INTACT;#20G TO RAC FLUSHED AND PATENT,SITE APPEARS HEALTHY;OCONNOR CATHETER PATENT AND DRAINING TO GRAVITY WITH EASE;PT REMAINS IN CONTACT PRECAUTIONS DUE TO ESBL;PT DENIES ANY ADDITIONAL NEEDS AND IS ENCOURAGED TO CALL FOR ASSISTANCE IF NEEDED;FALL PRECAUTIONS IN PLACE WITH BED IN THE LOWEST POSITION AND CALL LIGHT IN REACH;WILL CONTINUE TO MONITOR
--- NOTE | 2021-04-21 10:06 | NUR ---
AT BEDSIDE DISCUSSING POC.
--- NOTE | 2021-04-21 11:25 | NUR ---
PT RESTING IN SEMI FOWLERS POSITION;RESPIRATIONS EVEN AND UNLABORED ON RA;PT DENIES ANY CURRENT PAIN OR NEEDS;IV SITE AND OCONNOR CATHETER PATENT;PT ENCOURAGED TO CALL FOR ASSISTANCE IF NEEDED;CALL LIGHT IN REACH;WILL CONTINUE TO MONITOR
--- NOTE | 2021-04-21 11:37 | NUR ---
PHYSICAL THERAPY AT BEDSIDE
--- NOTE | 2021-04-21 12:22 | NUR ---
S- pt cooperative with treatment. Denied SOB. 0- pt seen at bedside, nursing contacted prior to treatment. Pt performed 20 reps of LEs ex in supine including heelslides, hip abd/add, hip IR/ER, TKE and ankle DF/PF. She moved supine to and from sit with bed rail and min assist. Sit to stand x 3 reps with min assist. Standing balance decreased. Gait with min assist x 1 forward and backward 4'. Side stepping and balance activiies with CGA to min assist. BP 156/91, HR 89 to 103, 02 sat 99, desat to 92% with quick recovery. Time spent with pt 35 min 0- Pt with weakness and decreased balance. [facility] E[facility] P- will follow.
--- NOTE | 2021-04-21 14:55 | NUR ---
IV SITE REMOVED WITH CATHETER INTACT DUE TO EXPIRATION. NEW #22G STARTED TO RH HAND ON 1ST ATTEMPT BY THIS WRITTER AND PT TOLERATED WELL;PT DENIES ANY ADDITIONAL NEEDS;CALL LIGHT IN REACH;WILL CONTINUE TO MONITOR
--- NOTE | 2021-04-21 16:00 | NUR ---
PT RESTING IN SEMI FOWLERS POSITION;RESPIRATIONS EVEN AND UNLABORED ON RA;PT REPORTS HEADACHE PAIN RATING 8/10 ON THE PAIN SCALE AND IS MEDICATED WITH PRN TYLENOL 650MG PO;IV SITE PATENT;OCONNOR CATHETER DRAINING TO GRAVITY WITH EASE;ALL SAFETY PRECAUTIONS REMAIN IN PLACE WITH BED IN THE LOWEST POSITION AND CALL LIGHT IN REACH;WILL CONTINUE TO MONITOR
[2021-04-21 16:34] VITALS: BP 146/70
[2021-04-21 19:00] VITALS: BP 131/75
--- NOTE | 2021-04-21 19:40 | NUR ---
PATIENT ALERT, ORIENTED, SITTING ON SIDE OF BED, DENIES PAIN AT THIS TIME, GRADES 9 12 TUTOR COMPLETED, CALL LIGHT WITHIN REACH, BED IN LOW POSITION
[2021-04-22] VITALS: BP 123/83
--- NOTE | 2021-04-22 00:13 | NUR ---
PATIENT RESTING IN BED, APPEARS TO BE SLEEPING, CALL LIGHT WITHIN REACH, SAFETY PRECAUTIONS MAINTAINED
[2021-04-22 04:00] VITALS: BP 120/78
--- NOTE | 2021-04-22 07:10 | NUR ---
REPORT RECEIVED FROM LAURA ANNE
[2021-04-22 07:30] VITALS: BP 139/67
--- NOTE | 2021-04-22 08:20 | NUR ---
PT RESTING IN SEMI FOWLERS POSITION,A&O X3;VS OBTAINED AND ASSESSMENT COMPLETED;PT REPORTS GENERALIZED PAIN AND IS MEDICATED WITH PRN TYLENOL 650MG PO PER REQUEST;RESPIRATIONS EVEN AND UNLABORED ON RA,CLEAR LUNG SOUNDS;ABDOMEN SOFT ON PALPATION AND ACTIVE IN ALL 4 QUADRANTS;OCONNOR CATHETER PATENT DRAINING TO GRAVITY WITH EASE;WEAK PEDAL PULSES;GENERALIZED BRUISING NOTED AND HEMATOMA ABOVE RIGHT EYE,SKIN OTHERWISE INTACT;#22G TO RH FLUSHED AND PATENT,SITE APPEARS HEALTHY;PT REMAINS IN CONTACT PRECAUTIONS FOR ESBL;PT DENIES ANY ADDITIONAL NEEDS AND IS ENCOURAGED TO CALL FOR ASSISTANCE IF NEEDED;FALL PRECAUTIONS IN PLACE WITH CALL LIGHT IN REACH;WILL CONTINUE TO MONITOR
--- NOTE | 2021-04-22 10:21 | NUR ---
AND YON ANRP AT BEDSIDE DISCUSSING POC.
--- NOTE | 2021-04-22 11:13 | NUR ---
PHYSICAL THERAPY AT BEDSIDE WORKING WITH PT.
--- NOTE | 2021-04-22 11:50 | NUR ---
PT RESTING IN SEMI FOWLERS POSITION;RESPIRATIONS EVEN AND UNLABORED ON RA;PT DENIES ANY CURRENT PAIN OR DISCOMFORTS;IV SITE PATENT;PT ENCOURAGED TO CALL FOR ASSISTANCE IF NEEDED;CALL LIGHT IN REACH;WILL CONTINUE TO MONITOR
--- NOTE | 2021-04-22 12:05 | NUR ---
S- Pt voiced no complaints 0- pt resting in bed semi reclined. Supine to and from sitting was modified indep using bed rail, she did have difficulty scooting up in bed. Gait in room with min assist of 1 1 x30', 1x50'. Pt standing balance decreased. Standing balance activities performed including feet together eyes open x 30 sec, feet together eyes closed <15 sec. standing marching and up on toes. PT BP 149/78 to 159/90 (nursing notified), HR 90-100, 02 sats mid to uper 90's. Time spent with pt 35 min 0- Pt with decreased mobility and weakness. [facility]- will follow.
--- NOTE | 2021-04-22 14:50 | NUR ---
[facility] CATHETER REMOVED PER ORDER,PT TOLERATED WELL.
--- NOTE | 2021-04-22 16:20 | NUR ---
PT RESTING IN SEMI FOWLERS POSITION;RESPIRATIONS EVEN AND UNLABORED ON RA;PT DENIES ANY CURRENT PAIN OR NEEDS;IV SITE PATENT;PT EDUCATED ON PLANS TO D/C TO [facility] AT APPROX 1800 AND VERBALIZES UNDERSTANDING;ENCOURAGED TO CALL FOR ASSISTANCE IF NEEDED;CALL LIGHT IN REACH;WILL CONTINUE TO MONITOR
[2021-04-22 16:36] VITALS: BP 144/96
--- NOTE | 2021-04-22 16:58 | NUR ---
ALL DISCHARGE INSTRUCTIONS PROVIDED TO PT. PT INSTRUCTED TO F/U WITH PCP UPON DISCHARGE FROM THE REHAB, CONTINUE TAKING ALL ROUTINE MEDICATIONS, STOP BENZOS AND NOT SIGN HERSLEF OUT FROM REHAB UNTIL REHAB IS COMPLETE;PT VERBALIZES UNDERSTANDING AND DENIES ANY ADDITIONAL QUESTIONS OR NEEDS;IV SITE REMOVED WITH CATHETER INTACT;WC TO BE PROVIDED BY REHAB STAFF FOR D/C. REHAB STAFF TO TRANSPORT PT;WILL CONTINUE TO MONITOR
--- NOTE | 2021-04-22 17:39 | NUR ---
REPORT CALLED TO GEORGE AT [facility] AND [facility]
--- NOTE | 2021-04-22 18:38 | NUR ---
Discharge instructions given. Patient verbalizes understanding of same. Discharged in stable condition [facility] to [facility] with [facility]Other. All belongings sent with pt. PT TRANSPORTED TO [facility] IN STABLE CONDITION VIA ACCOMPANIED BY [facility] STAFF.ALL BELONGINGS LEFT WITH PT.
== END 2021-04-22 18:30 | DRG 917 ==
LOC: ED 14:37 → ED-I 17:45 → ED 18:04 → ICU 18:05 → MS2 04-20 18:00
PROVIDERS: Internal Medicine; ADMIT Hospitalist; ATTEND Hospitalist
PROC: 5A09357 Assistance with Respiratory Ventilation, Less than 24 Consecutive Hours, Continuous Positive Airway Pressure (ICD-10-PCS; principal; 2021-04-17)
PROC: 0T9B70Z Drainage of Bladder with Drainage Device, Via Natural or Artificial Opening (ICD-10-PCS; 2021-04-17)
DX: T42.4X1A Poisoning by benzodiazepines, accidental (unintentional), initial encounter (principal); J96.21 Acute and chronic respiratory failure with hypoxia; G92.8 Other toxic encephalopathy; J96.22 Acute and chronic respiratory failure with hypercapnia; F13.10 Sedative, hypnotic or anxiolytic abuse, uncomplicated; J43.9 Emphysema, unspecified; I10 Essential (primary) hypertension; F31.9 Bipolar disorder, unspecified; E78.5 Hyperlipidemia, unspecified; F41.0 Panic disorder [episodic paroxysmal anxiety]; K21.9 Gastro-esophageal reflux disease without esophagitis; M41.9 Scoliosis, unspecified; F17.200 Nicotine dependence, unspecified, uncomplicated; S00.10XA Contusion of unspecified eyelid and periocular area, initial encounter; W19.XXXA Unspecified fall, initial encounter; Y92.009 Unspecified place in unspecified non-institutional (private) residence as the place of occurrence of the external cause; S22.000D Wedge compression fracture of unspecified thoracic vertebra, subsequent encounter for fracture with routine healing; W19.XXXD Unspecified fall, subsequent encounter; Z22.39 Carrier of other specified bacterial diseases; Z99.81 Dependence on supplemental oxygen; Z91.81 History of falling; Z20.822 Contact with and (suspected) exposure to COVID-19
CPT/HCPCS: J1650

== ENCOUNTER 2021-09-17 11:11 | Observation (INO) | payer MEDICARE, MEDICAID ==
[~2021-09-17] VITALS: Ht 160 cm; Wt 67.5 kg
[2021-09-17] VITALS (22 sets, daily range): BP systolic 73–172; BP diastolic 53–122
[2021-09-17 12:07] LABS: IMMATURE GRANULOCYTES 0.3 % (0.0-5.0); MEAN CORPUSCULAR HGB 29.7 pG CALC (26.0-32.0); MEAN CORPUSCULAR HGB CONC 31.3 g/dL CAL (32.0-36.0); NEUT# 5.65 thou/uL (2.00-7.15); RED BLOOD COUNT 5.05 mill/uL (4.20-5.60); RED CELL DISTRI WIDTH 15.7 % (11.5-15.5)
[2021-09-17 12:16] LABS: ALBUMIN 3.3 g/dL (3.2-5.0); ALKALINE PHOSPHATASE 93 u/l (38-126); ANION GAP 15 (6-22 (CALC)); BUN 8 mg/dL (8-23); BUN/CREATININE RATIO 18 (12-20 (CALC)); CARBON DIOXIDE 25 mmol/l (22-30); CHLORIDE 98 mmol/l (95-108); CREATININE 0.4 mg/dL (0.5-1.0); GFR > 60 ML/MIN (>=60 (CALC)); GFR FOR AFR.AMER. > 60 ML/MIN (>=60 (CALC)); POTASSIUM 4.3 mmol/l (3.5-5.1); SGOT/AST 22 u/l (9-36); SODIUM 134 mmol/l (137-146); TOTAL PROTEIN 6.2 g/dL (6.3-8.2)
[2021-09-17 12:20] LABS: BILIRUBIN, TOTAL 0.4 mg/dL (0.0-1.4)
[2021-09-17 14:57] LABS: URINE BILIRUBIN - DIPSTICK NEGATIVE (NEGATIVE); URINE BLOOD DIPSTICK SMALL (NEGATIVE); URINE COLOR YELLOW; URINE GLUCOSE - DIPSTICK NEGATIVE (NEGATIVE); URINE KETONE >=80 mg/dL (NEGATIVE); URINE PROTEIN - DIPSTICK NEGATIVE (NEG-TRACE); URINE SPECIFIC GRAVITY 1.015; URINE UROBILINOGEN - DIPSTICK 0.2 E.U./dL (0.2)
[2021-09-17 15:03] LABS: URINE LEUK ESTERASE LARGE (NEGATIVE); URINE NITRITE - DIPSTICK NEGATIVE (Negative)
[2021-09-17 15:07] LABS: URINE BACTERIA FEW hpf; URINE MUCUS FEW hpf (NONE-FEW); URINE RBC 25-50 RBC/hpf (0-5); URINE SQUAMOUS EPITHELIAL CELL FEW EPI/hpf (0-FEW); URINE WBC 50-100 WBC/hpf (0-5)
[2021-09-18] VITALS (8 sets, daily range): BP systolic 109–144; BP diastolic 61–77
[2021-09-18 05:42] LABS: HEMATOCRIT 43.9 % (37.0-47.0); HEMOGLOBIN 14.3 g/dl (12.0-16.0); MEAN CELL VOLUME 91.6 fL CALC (80.0-100.0); MEAN CORPUSCULAR HGB 29.9 pG CALC (26.0-32.0); MEAN CORPUSCULAR HGB CONC 32.6 g/dL CAL (32.0-36.0); RED BLOOD COUNT 4.79 mill/uL (4.20-5.60); RED CELL DISTRI WIDTH 15.6 % (11.5-15.5)
[2021-09-18 06:00] LABS: BUN 6 mg/dL (8-23); BUN/CREATININE RATIO 14 (12-20 (CALC)); CARBON DIOXIDE 27 mmol/l (22-30); CHLORIDE 97 mmol/l (95-108); CREATININE 0.4 mg/dL (0.5-1.0); GFR > 60 ML/MIN (>=60 (CALC)); GFR FOR AFR.AMER. > 60 ML/MIN (>=60 (CALC)); MAGNESIUM 1.8 mg/dL (1.6-2.3); SODIUM 135 mmol/l (137-146)
[2021-09-18 06:02] LABS: ANION GAP 16 (6-22 (CALC)); POTASSIUM 4.6 mmol/l (3.5-5.1)
[2021-09-18] MEDS ORDERED: BUSPIRONE10 MG PO (11:10)
[2021-09-18] MEDS ORDERED: MELOXICAM15 MG PO (11:11)
[2021-09-18] MEDS ORDERED: PAROXETINE10 MG PO (11:12)
[2021-09-18] MEDS ORDERED: APAP/TRAMADL1 TAB PO (11:16)
[2021-09-18] MEDS ORDERED: CEFTRIAXONE2 GM IJ (11:18)
[2021-09-18] MEDS ORDERED: LIDOCAINE IJ (11:20)
[2021-09-19 03:25] VITALS: BP 128/75
[2021-09-19 05:27] LABS: HEMATOCRIT 43.4 % (37.0-47.0); HEMOGLOBIN 13.6 g/dl (12.0-16.0); MEAN CELL VOLUME 94.3 fL CALC (80.0-100.0); MEAN CORPUSCULAR HGB 29.6 pG CALC (26.0-32.0); MEAN CORPUSCULAR HGB CONC 31.3 g/dL CAL (32.0-36.0); RED BLOOD COUNT 4.6 mill/uL (4.20-5.60); RED CELL DISTRI WIDTH 15.8 % (11.5-15.5)
[2021-09-19 05:49] LABS: ANION GAP 6 (6-22 (CALC)); BUN 10 mg/dL (8-23); BUN/CREATININE RATIO 21 (12-20 (CALC)); CHLORIDE 99 mmol/l (95-108); CREATININE 0.5 mg/dL (0.5-1.0); GFR > 60 ML/MIN (>=60 (CALC)); GFR FOR AFR.AMER. > 60 ML/MIN (>=60 (CALC)); MAGNESIUM 1.7 mg/dL (1.6-2.3); POTASSIUM 4.5 mmol/l (3.5-5.1); SODIUM 133 mmol/l (137-146)
[2021-09-19 06:02] LABS: CARBON DIOXIDE 33 mmol/l (22-30)
[2021-09-19 07:10] VITALS: BP 140/69
[2021-09-19 10:42] VITALS: BP 118/67
[2021-09-19 14:43] VITALS: BP 135/78
[2021-09-19 14:51] VITALS: BP 135/78
[2021-09-19 19:13] VITALS: BP 115/67
[2021-09-20] VITALS (8 sets, daily range): BP systolic 103–167; BP diastolic 61–88
[2021-09-20 05:07] LABS: HEMATOCRIT 42.3 % (37.0-47.0); HEMOGLOBIN 13.2 g/dl (12.0-16.0); MEAN CELL VOLUME 95.9 fL CALC (80.0-100.0); MEAN CORPUSCULAR HGB 29.9 pG CALC (26.0-32.0); MEAN CORPUSCULAR HGB CONC 31.2 g/dL CAL (32.0-36.0); RED BLOOD COUNT 4.41 mill/uL (4.20-5.60); RED CELL DISTRI WIDTH 15.8 % (11.5-15.5)
[2021-09-20 05:32] LABS: ANION GAP 7 (6-22 (CALC)); BUN 11 mg/dL (8-23); BUN/CREATININE RATIO 22 (12-20 (CALC)); CARBON DIOXIDE 30 mmol/l (22-30); CHLORIDE 102 mmol/l (95-108); CREATININE 0.5 mg/dL (0.5-1.0); GFR > 60 ML/MIN (>=60 (CALC)); GFR FOR AFR.AMER. > 60 ML/MIN (>=60 (CALC)); MAGNESIUM 1.6 mg/dL (1.6-2.3); POTASSIUM 4.3 mmol/l (3.5-5.1); SODIUM 135 mmol/l (137-146)
[2021-09-21 04:14] VITALS: BP 114/69
[2021-09-21 05:51] LABS: HEMATOCRIT 42.4 % (37.0-47.0); HEMOGLOBIN 13.1 g/dl (12.0-16.0); MEAN CELL VOLUME 95.5 fL CALC (80.0-100.0); MEAN CORPUSCULAR HGB 29.5 pG CALC (26.0-32.0); MEAN CORPUSCULAR HGB CONC 30.9 g/dL CAL (32.0-36.0); RED BLOOD COUNT 4.44 mill/uL (4.20-5.60); RED CELL DISTRI WIDTH 16.2 % (11.5-15.5)
[2021-09-21 06:04] LABS: ANION GAP 7 (6-22 (CALC)); BUN 12 mg/dL (8-23); BUN/CREATININE RATIO 24 (12-20 (CALC)); CARBON DIOXIDE 30 mmol/l (22-30); CHLORIDE 104 mmol/l (95-108); CREATININE 0.5 mg/dL (0.5-1.0); GFR > 60 ML/MIN (>=60 (CALC)); GFR FOR AFR.AMER. > 60 ML/MIN (>=60 (CALC)); MAGNESIUM 1.7 mg/dL (1.6-2.3); POTASSIUM 4.3 mmol/l (3.5-5.1); SODIUM 136 mmol/l (137-146)
[2021-09-21 06:20] VITALS: BP 122/73
[2021-09-21 10:33] VITALS: BP 111/70
[2021-09-21 14:20] VITALS: BP 143/84
== END 2021-09-21 16:30 ==
LOC: ED 11:11 → ED-I 12:30 → ED 16:07 → MS2 16:08
PROVIDERS: Family Medicine; Nurse Practitioner; ADMIT Hospitalist; ATTEND Hospitalist
PROC: 0RSJXZZ Reposition Right Shoulder Joint, External Approach (ICD-10-PCS; principal; 2021-09-17)
DX: G93.41 Metabolic encephalopathy (principal); S43.014A Anterior dislocation of right humerus, initial encounter; F13.90 Sedative, hypnotic, or anxiolytic use, unspecified, uncomplicated; J96.11 Chronic respiratory failure with hypoxia; F03.90 Unspecified dementia, unspecified severity, without behavioral disturbance, psychotic disturbance, mood disturbance, and anxiety; I10 Essential (primary) hypertension; J43.9 Emphysema, unspecified; F31.9 Bipolar disorder, unspecified; F41.0 Panic disorder [episodic paroxysmal anxiety]; E78.5 Hyperlipidemia, unspecified; K21.9 Gastro-esophageal reflux disease without esophagitis; F17.210 Nicotine dependence, cigarettes, uncomplicated; R19.00 Intra-abdominal and pelvic swelling, mass and lump, unspecified site; R82.71 Bacteriuria; W18.30XA Fall on same level, unspecified, initial encounter; Y92.009 Unspecified place in unspecified non-institutional (private) residence as the place of occurrence of the external cause; Z91.81 History of falling; Z99.81 Dependence on supplemental oxygen; Z60.2 Problems related to living alone; Z20.822 Contact with and (suspected) exposure to COVID-19
CPT/HCPCS: J1650

== ENCOUNTER 2021-12-08 13:39 | Emergency (ER) | payer MEDICARE, MEDICAID ==
[~2021-12-08] VITALS: Ht 160 cm; Wt 64.6 kg
[~2021-12-08 13:39] MED LIST changes: +APAP/TRAMADL1 TAB PO; +BUSPIRONE10 MG PO; +CEFTRIAXONE2 GM IJ; +LIDOCAINE IJ; +MELOXICAM15 MG PO; +PAROXETINE10 MG PO
[2021-12-08 14:36] LABS: HEMATOCRIT 44.8 % (37.0-47.0); HEMOGLOBIN 14.2 g/dl (12.0-16.0); IMMATURE GRANULOCYTES 0.1 % (0.0-5.0); MEAN CELL VOLUME 96.8 fL CALC (80.0-100.0); MEAN CORPUSCULAR HGB 30.7 pG CALC (26.0-32.0); MEAN CORPUSCULAR HGB CONC 31.7 g/dL CAL (32.0-36.0); NEUT# 8.29 thou/uL (2.00-7.15); RED BLOOD COUNT 4.63 mill/uL (4.20-5.60); RED CELL DISTRI WIDTH 15.9 % (11.5-15.5)
[2021-12-08 14:39] LABS: URINE BILIRUBIN - DIPSTICK NEGATIVE (NEGATIVE); URINE BLOOD DIPSTICK TRACE-INTACT (NEGATIVE); URINE COLOR YELLOW; URINE GLUCOSE - DIPSTICK NEGATIVE (NEGATIVE); URINE KETONE >=80 mg/dL (NEGATIVE); URINE PROTEIN - DIPSTICK TRACE mg/dL (NEG-TRACE); URINE SPECIFIC GRAVITY >=1.030; URINE UROBILINOGEN - DIPSTICK 0.2 E.U./dL (0.2)
[2021-12-08 14:51] LABS: ALBUMIN 3.6 g/dL (3.2-5.0); ALKALINE PHOSPHATASE 67 u/l (38-126); ANION GAP 13 (6-22 (CALC)); BUN 20 mg/dL (8-23); BUN/CREATININE RATIO 35 (12-20 (CALC)); CARBON DIOXIDE 26 mmol/l (22-30); CHLORIDE 96 mmol/l (95-108); CREATININE 0.6 mg/dL (0.5-1.0); GFR FOR AFR.AMER. > 60 ML/MIN (>=60 (CALC)); GFR OTHER RACES > 60 ML/MIN (>=60 (CALC)); POTASSIUM 4.6 mmol/l (3.5-5.1); SGOT/AST 32 u/l (9-36); SODIUM 130 mmol/l (137-146); TOTAL PROTEIN 6.3 g/dL (6.3-8.2)
[2021-12-08 14:53] LABS: URINE EPITHELIAL CELLS MODERATE EPI/hpf (0-FEW); URINE LEUK ESTERASE MODERATE (NEGATIVE); URINE NITRITE - DIPSTICK POSITIVE (Negative); URINE RBC 0-2 RBC/hpf (0-5); URINE WBC 20-50 WBC/hpf (0-5)
[2021-12-08 14:54] LABS: URINE BACTERIA MANY hpf
[2021-12-08 15:01] LABS: BILIRUBIN, TOTAL 0.6 mg/dL (0.0-1.4)
[2021-12-08] MEDS ORDERED: TOPAMAX100 MG PO (16:04)
[2021-12-08] MEDS ORDERED: ALBUTEROL SUL0.083 % IN (16:05)
[2021-12-08] MEDS ORDERED: OMNI-PAC300 MG PO (16:42)
[2021-12-08 16:57] VITALS: BP 133/71
== END 2021-12-08 19:45 | disposition home or self-care (01) ==
LOC: ED 13:39
PROVIDERS: Internal Medicine
DX: S00.81XA Abrasion of other part of head, initial encounter (principal); M25.551 Pain in right hip; N39.0 Urinary tract infection, site not specified; B96.20 Unspecified Escherichia coli [E. coli] as the cause of diseases classified elsewhere; I10 Essential (primary) hypertension; J44.9 Chronic obstructive pulmonary disease, unspecified; F41.9 Anxiety disorder, unspecified; F31.9 Bipolar disorder, unspecified; F17.210 Nicotine dependence, cigarettes, uncomplicated; W01.0XXA Fall on same level from slipping, tripping and stumbling without subsequent striking against object, initial encounter; Y92.009 Unspecified place in unspecified non-institutional (private) residence as the place of occurrence of the external cause; Z16.12 Extended spectrum beta lactamase (ESBL) resistance

== ENCOUNTER 2021-12-16 10:24 | Emergency (ER) | payer MEDICARE, MEDICAID ==
[~2021-12-16] VITALS: Ht 160 cm; Wt 66.0 kg
[~2021-12-16 10:24] MED LIST changes: +ALBUTEROL SUL0.083 % IN; +OMNI-PAC300 MG PO
[2021-12-16 10:29] VITALS: BP 140/101
[2021-12-16 10:31] VITALS: BP 149/93
[2021-12-16 11:00] VITALS: BP 152/96
[2021-12-16 12:00] VITALS: BP 137/91
[2021-12-16] MEDS ORDERED: EC-NAPROXEN500 MG PO (12:09)
[2021-12-16 12:31] VITALS: BP 127/84
[2021-12-16 13:00] VITALS: BP 130/66
[2021-12-21] MEDS ORDERED: BACTRIM DS1 TAB PO (01:39)
== END 2021-12-16 15:19 | disposition home or self-care (01) ==
LOC: ED 10:24
DX: R07.81 Pleurodynia (principal); I10 Essential (primary) hypertension; F41.9 Anxiety disorder, unspecified; F31.9 Bipolar disorder, unspecified; J44.9 Chronic obstructive pulmonary disease, unspecified; F17.210 Nicotine dependence, cigarettes, uncomplicated

== ENCOUNTER 2021-12-23 12:00 | Observation (INO) | payer MEDICARE, MEDICAID ==
[~2021-12-23] VITALS: Ht 160 cm; Wt 68.1 kg
[2021-12-23] VITALS (13 sets, daily range): BP systolic 115–161; BP diastolic 71–95
[~2021-12-23 12:00] MED LIST changes: +BACTRIM DS1 TAB PO; +EC-NAPROXEN500 MG PO
[2021-12-23 12:26] LABS: IMMATURE GRANULOCYTES 0.5 % (0.0-5.0); MEAN CELL VOLUME 92.7 fL CALC (80.0-100.0); MEAN CORPUSCULAR HGB 30.9 pG CALC (26.0-32.0); MEAN CORPUSCULAR HGB CONC 33.3 g/dL CAL (32.0-36.0); NEUT# 5.89 thou/uL (2.00-7.15); RED BLOOD COUNT 5.18 mill/uL (4.20-5.60)
[2021-12-23 13:28] LABS: ALBUMIN 3.4 g/dL (3.2-5.0); ALKALINE PHOSPHATASE 110 u/l (38-126); ANION GAP 11 (6-22 (CALC)); BILIRUBIN, TOTAL 0.3 mg/dL (0.0-1.4); BUN 14 mg/dL (8-23); BUN/CREATININE RATIO 24 (12-20 (CALC)); CARBON DIOXIDE 28 mmol/l (22-30); CHLORIDE 100 mmol/l (95-108); CREATININE 0.6 mg/dL (0.5-1.0); GFR FOR AFR.AMER. > 60 ML/MIN (>=60 (CALC)); GFR OTHER RACES > 60 ML/MIN (>=60 (CALC)); POTASSIUM 4.1 mmol/l (3.5-5.1); SGOT/AST 14 u/l (9-36); SODIUM 136 mmol/l (137-146); TOTAL PROTEIN 6.4 g/dL (6.3-8.2)
[2021-12-23 14:06] LABS: URINE BILIRUBIN - DIPSTICK NEGATIVE (NEGATIVE); URINE BLOOD DIPSTICK NEGATIVE (NEGATIVE); URINE COLOR YELLOW; URINE GLUCOSE - DIPSTICK NEGATIVE (NEGATIVE); URINE KETONE TRACE mg/dL (NEGATIVE); URINE PROTEIN - DIPSTICK 30 mg/dL (NEG-TRACE); URINE SPECIFIC GRAVITY >=1.030; URINE UROBILINOGEN - DIPSTICK 0.2 E.U./dL (0.2)
[2021-12-23 14:07] LABS: URINE LEUK ESTERASE MODERATE (NEGATIVE); URINE NITRITE - DIPSTICK POSITIVE (Negative)
[2021-12-23 14:12] LABS: URINE BACTERIA MANY hpf; URINE WBC TNTC WBC/hpf (0-5)
[2021-12-24 04:34] VITALS: BP 147/70
[2021-12-24 06:33] VITALS: BP 144/69
[2021-12-24 08:09] VITALS: BP 144/69
[2021-12-24] MEDS ORDERED: LEXAPRO10 MG PO (13:46)
[2021-12-24 14:52] VITALS: BP 100/57
[2021-12-24 15:35] VITALS: BP 100/57
[2021-12-24 18:57] VITALS: BP 108/71
[2021-12-25 04:25] VITALS: BP 152/82
[2021-12-25 05:01] LABS: IMMATURE GRANULOCYTES 0.4 % (0.0-5.0); MEAN CORPUSCULAR HGB 31.6 pG CALC (26.0-32.0); MEAN CORPUSCULAR HGB CONC 32.1 g/dL CAL (32.0-36.0); NEUT# 5.13 thou/uL (2.00-7.15); RED BLOOD COUNT 4.12 mill/uL (4.20-5.60); RED CELL DISTRI WIDTH 16.1 % (11.5-15.5)
[2021-12-25 05:02] LABS: HEMATOCRIT 40.5 % (37.0-47.0); MEAN CELL VOLUME 98.3 fL CALC (80.0-100.0)
[2021-12-25 05:28] LABS: ANION GAP 7 (6-22 (CALC)); BUN 8 mg/dL (8-23); BUN/CREATININE RATIO 15 (12-20 (CALC)); CARBON DIOXIDE 27 mmol/l (22-30); CHLORIDE 106 mmol/l (95-108); CREATININE 0.5 mg/dL (0.5-1.0); GFR FOR AFR.AMER. > 60 ML/MIN (>=60 (CALC)); GFR OTHER RACES > 60 ML/MIN (>=60 (CALC)); POTASSIUM 3.7 mmol/l (3.5-5.1); SODIUM 136 mmol/l (137-146)
[2021-12-25 06:13] VITALS: BP 146/77
[2021-12-25 19:18] VITALS: BP 101/62
[2021-12-26 04:40] VITALS: BP 154/81
[2021-12-26 06:04] VITALS: BP 147/66
[2021-12-26 14:24] VITALS: BP 113/76
[2021-12-26 18:48] VITALS: BP 122/79
[2021-12-27 03:44] VITALS: BP 110/70
[2021-12-27 06:17] VITALS: BP 144/83
[2021-12-27 14:31] VITALS: BP 98/60
[2021-12-27 18:55] VITALS: BP 108/69
[2021-12-28 04:08] VITALS: BP 113/58
[2021-12-28 05:28] LABS: HEMATOCRIT 39.6 % (37.0-47.0); HEMOGLOBIN 12.9 g/dl (12.0-16.0); MEAN CELL VOLUME 96.8 fL CALC (80.0-100.0); MEAN CORPUSCULAR HGB 31.5 pG CALC (26.0-32.0); MEAN CORPUSCULAR HGB CONC 32.6 g/dL CAL (32.0-36.0); RED BLOOD COUNT 4.09 mill/uL (4.20-5.60); RED CELL DISTRI WIDTH 15.7 % (11.5-15.5)
[2021-12-28 05:38] LABS: BUN 12 mg/dL (8-23); BUN/CREATININE RATIO 28 (12-20 (CALC)); CARBON DIOXIDE 27 mmol/l (22-30); CHLORIDE 104 mmol/l (95-108); CREATININE 0.4 mg/dL (0.5-1.0); GFR FOR AFR.AMER. > 60 ML/MIN (>=60 (CALC)); GFR OTHER RACES > 60 ML/MIN (>=60 (CALC)); MAGNESIUM 2.1 mg/dL (1.6-2.3); SODIUM 134 mmol/l (137-146)
[2021-12-28 05:48] LABS: ANION GAP 8 (6-22 (CALC)); POTASSIUM 4.5 mmol/l (3.5-5.1)
[2021-12-28 06:25] VITALS: BP 112/60
[2021-12-28] MEDS ORDERED: TRAMADOL HCL50 MG PO (12:12)
== END 2021-12-28 14:16 ==
LOC: ED 12:00 → ED-I 14:40 → ED 14:54 → MS2 14:55
PROVIDERS: Emergency Medicine; Nurse Practitioner; ADMIT Internal Medicine; ATTEND Internal Medicine
DX: N39.0 Urinary tract infection, site not specified (principal); I10 Essential (primary) hypertension; E78.5 Hyperlipidemia, unspecified; F31.9 Bipolar disorder, unspecified; F41.0 Panic disorder [episodic paroxysmal anxiety]; J43.9 Emphysema, unspecified; J96.11 Chronic respiratory failure with hypoxia; K21.9 Gastro-esophageal reflux disease without esophagitis; G89.29 Other chronic pain; K59.00 Constipation, unspecified; F17.200 Nicotine dependence, unspecified, uncomplicated; B96.20 Unspecified Escherichia coli [E. coli] as the cause of diseases classified elsewhere; Z79.899 Other long term (current) drug therapy; Z91.81 History of falling; T36.3X6A Underdosing of macrolides, initial encounter; Z91.128 Patient's intentional underdosing of medication regimen for other reason; Z60.2 Problems related to living alone; Z16.12 Extended spectrum beta lactamase (ESBL) resistance; Z20.822 Contact with and (suspected) exposure to COVID-19
CPT/HCPCS: J1335; J1650

== ENCOUNTER 2022-03-08 11:51 | Emergency (ER) | payer MEDICARE, MEDICAID ==
[~2022-03-08] VITALS: Ht 160 cm; Wt 63.0 kg
[2022-03-08] VITALS (14 sets, daily range): BP systolic 133–159; BP diastolic 60–98
[2022-03-08 12:31] LABS: IMMATURE GRANULOCYTES 0.1 % (0.0-5.0); MEAN CELL VOLUME 94.9 fL CALC (80.0-100.0); MEAN CORPUSCULAR HGB 30.9 pG CALC (26.0-32.0); MEAN CORPUSCULAR HGB CONC 32.6 g/dL CAL (32.0-36.0); NEUT# 5.35 thou/uL (2.00-7.15); RED BLOOD COUNT 4.53 mill/uL (4.20-5.60); RED CELL DISTRI WIDTH 13.9 % (11.5-15.5)
[2022-03-08 12:43] LABS: ALBUMIN 3.6 g/dL (3.2-5.0); ALKALINE PHOSPHATASE 68 u/l (38-126); ANION GAP 9 (6-22 (CALC)); BUN 10 mg/dL (8-23); BUN/CREATININE RATIO 24 (12-20 (CALC)); CARBON DIOXIDE 27 mmol/l (22-30); CHLORIDE 103 mmol/l (95-108); CREATININE 0.4 mg/dL (0.5-1.0); GFR FOR AFR.AMER. > 60 ML/MIN (>=60 (CALC)); GFR OTHER RACES > 60 ML/MIN (>=60 (CALC)); POTASSIUM 3.8 mmol/l (3.5-5.1); SGOT/AST 24 u/l (9-36); SODIUM 135 mmol/l (137-146); TOTAL PROTEIN 6.3 g/dL (6.3-8.2)
[2022-03-08 12:45] LABS: BILIRUBIN, TOTAL 0.7 mg/dL (0.0-1.4)
[2022-03-08 14:45] LABS: URINE BILIRUBIN - DIPSTICK NEGATIVE (NEGATIVE); URINE BLOOD DIPSTICK NEGATIVE (NEGATIVE); URINE COLOR YELLOW; URINE GLUCOSE - DIPSTICK NEGATIVE (NEGATIVE); URINE KETONE TRACE mg/dL (NEGATIVE); URINE LEUK ESTERASE NEGATIVE (NEGATIVE); URINE PROTEIN - DIPSTICK NEGATIVE (NEG-TRACE); URINE SPECIFIC GRAVITY 1.015; URINE UROBILINOGEN - DIPSTICK 0.2 E.U./dL (0.2)
[2022-03-08 14:46] LABS: URINE NITRITE - DIPSTICK NEGATIVE (Negative)
== END 2022-03-08 15:50 | disposition left against medical advice (07) ==
LOC: ED 11:51
PROVIDERS: Family Medicine
DX: R53.1 Weakness (principal); S62.617A Displaced fracture of proximal phalanx of left little finger, initial encounter for closed fracture; I10 Essential (primary) hypertension; J44.9 Chronic obstructive pulmonary disease, unspecified; F31.9 Bipolar disorder, unspecified; F41.0 Panic disorder [episodic paroxysmal anxiety]; F17.200 Nicotine dependence, unspecified, uncomplicated; W18.30XA Fall on same level, unspecified, initial encounter; Y92.003 Bedroom of unspecified non-institutional (private) residence as the place of occurrence of the external cause; Z53.29 Procedure and treatment not carried out because of patient's decision for other reasons

== ENCOUNTER 2022-04-21 11:01 | Emergency (ER) | payer MEDICARE, MEDICAID ==
[~2022-04-21] VITALS: Ht 160 cm; Wt 60.0 kg
[2022-04-21] VITALS (7 sets, daily range): BP systolic 132–148; BP diastolic 70–120
[2022-04-21 14:11] LABS: HEMOGLOBIN 15.5 g/dl (12.0-16.0); IMMATURE GRANULOCYTES 0.1 % (0.0-5.0); MEAN CELL VOLUME 94.4 fL CALC (80.0-100.0); MEAN CORPUSCULAR HGB 31.1 pG CALC (26.0-32.0); NEUT# 9.35 thou/uL (2.00-7.15); RED BLOOD COUNT 4.98 mill/uL (4.20-5.60); RED CELL DISTRI WIDTH 14.3 % (11.5-15.5)
[2022-04-21 14:23] LABS: ALBUMIN 3.9 g/dL (3.2-5.0); ALKALINE PHOSPHATASE 86 u/l (38-126); ANION GAP 10 (6-22 (CALC)); BILIRUBIN, TOTAL 0.5 mg/dL (0.0-1.4); BUN 5 mg/dL (8-23); BUN/CREATININE RATIO 13 (12-20 (CALC)); CARBON DIOXIDE 27 mmol/l (22-30); CHLORIDE 101 mmol/l (95-108); CPK 25 u/l (30-165); CREATININE 0.4 mg/dL (0.5-1.0); ETHYL ALCOHOL 0 mg/dl (0-30); GFR FOR AFR.AMER. > 60 ML/MIN (>=60 (CALC)); GFR OTHER RACES > 60 ML/MIN (>=60 (CALC)); POTASSIUM 3.7 mmol/l (3.5-5.1); SGOT/AST 21 u/l (9-36); SODIUM 135 mmol/l (137-146); TOTAL PROTEIN 6.9 g/dL (6.3-8.2)
== END 2022-04-21 17:56 | disposition short-term general hospital (02) ==
LOC: ED 11:01
PROVIDERS: Nurse Practitioner
DX: S72.141A Displaced intertrochanteric fracture of right femur, initial encounter for closed fracture (principal); I10 Essential (primary) hypertension; J44.9 Chronic obstructive pulmonary disease, unspecified; F41.9 Anxiety disorder, unspecified; F31.9 Bipolar disorder, unspecified; F17.210 Nicotine dependence, cigarettes, uncomplicated; W01.0XXA Fall on same level from slipping, tripping and stumbling without subsequent striking against object, initial encounter; Y92.009 Unspecified place in unspecified non-institutional (private) residence as the place of occurrence of the external cause; Z91.81 History of falling

== ENCOUNTER 2022-05-08 13:06 | Observation (INO) | payer MEDICARE, MEDICAID ==
[~2022-05-08] VITALS: Ht 160 cm; Wt 61.3 kg
[2022-05-08] VITALS (15 sets, daily range): BP systolic 104–144; BP diastolic 59–94
[2022-05-08 14:10] LABS: BASO% 0.5 % (0-3); EOS% 1.5 % (0-8); HEMATOCRIT 42.1 % (37.0-47.0); HEMOGLOBIN 13.6 g/dl (12.0-16.0); IMMATURE GRANULOCYTES 0.5 % (0.0-5.0); LYMPH% 20.1 % (15-41); MEAN CELL VOLUME 96.6 fL CALC (80.0-100.0); MEAN CORPUSCULAR HGB 31.2 pG CALC (26.0-32.0); MEAN CORPUSCULAR HGB CONC 32.3 g/dL CAL (32.0-36.0); MONO% 6.6 % (2-13); NEUT# 5.77 thou/uL (2.00-7.15); NEUT% 70.8 % (42-76); RED BLOOD COUNT 4.36 mill/uL (4.20-5.60); RED CELL DISTRI WIDTH 14.5 % (11.5-15.5)
[2022-05-08 14:26] LABS: ALBUMIN 3.9 g/dL (3.2-5.0); BUN 14 mg/dL (8-23); BUN/CREATININE RATIO 23 (12-20 (CALC)); CARBON DIOXIDE 27 mmol/l (22-30); CHLORIDE 102 mmol/l (95-108); CREATININE 0.6 mg/dL (0.5-1.0); GFR FOR AFR.AMER. > 60 ML/MIN (>=60 (CALC)); GFR OTHER RACES > 60 ML/MIN (>=60 (CALC)); SGOT/AST 19 u/l (9-36); SODIUM 135 mmol/l (137-146); TOTAL PROTEIN 7.1 g/dL (6.3-8.2)
[2022-05-08 14:31] LABS: ALKALINE PHOSPHATASE 161 u/l (38-126); ANION GAP 11 (6-22 (CALC)); BILIRUBIN, TOTAL 0.2 mg/dL (0.0-1.4); POTASSIUM 4.7 mmol/l (3.5-5.1)
[2022-05-08 15:29] LABS: URINE BILIRUBIN - DIPSTICK NEGATIVE (NEGATIVE); URINE BLOOD DIPSTICK NEGATIVE (NEGATIVE); URINE COLOR YELLOW; URINE GLUCOSE - DIPSTICK NEGATIVE (NEGATIVE); URINE KETONE NEGATIVE (NEGATIVE); URINE PH 7.5 (4.5-8.0); URINE PROTEIN - DIPSTICK NEGATIVE (NEG-TRACE); URINE UROBILINOGEN - DIPSTICK 0.2 E.U./dL (0.2)
[2022-05-08 15:31] LABS: URINE LEUK ESTERASE LARGE (NEGATIVE); URINE NITRITE - DIPSTICK NEGATIVE (Negative)
[2022-05-08 15:36] LABS: URINE BACTERIA FEW hpf; URINE SQUAMOUS EPITHELIAL CELL FEW EPI/hpf (0-FEW); URINE WBC >100 WBC/hpf (0-5)
[2022-05-09] VITALS (10 sets, daily range): BP systolic 104–126; BP diastolic 54–71
[2022-05-09 05:25] LABS: BASO% 0.6 % (0-3); EOS% 2.8 % (0-8); HEMATOCRIT 37.1 % (37.0-47.0); HEMOGLOBIN 12.2 g/dl (12.0-16.0); IMMATURE GRANULOCYTES 0.1 % (0.0-5.0); LYMPH% 23.9 % (15-41); MEAN CELL VOLUME 95.6 fL CALC (80.0-100.0); MEAN CORPUSCULAR HGB 31.4 pG CALC (26.0-32.0); MEAN CORPUSCULAR HGB CONC 32.9 g/dL CAL (32.0-36.0); MONO% 8.2 % (2-13); NEUT# 4.3 thou/uL (2.00-7.15); NEUT% 64.4 % (42-76); RED BLOOD COUNT 3.88 mill/uL (4.20-5.60); RED CELL DISTRI WIDTH 14.5 % (11.5-15.5)
[2022-05-09 05:42] LABS: ALKALINE PHOSPHATASE 134 u/l (38-126); ANION GAP 9 (6-22 (CALC)); BUN 14 mg/dL (8-23); BUN/CREATININE RATIO 23 (12-20 (CALC)); CARBON DIOXIDE 27 mmol/l (22-30); CHLORIDE 105 mmol/l (95-108); CREATININE 0.6 mg/dL (0.5-1.0); GFR FOR AFR.AMER. > 60 ML/MIN (>=60 (CALC)); GFR OTHER RACES > 60 ML/MIN (>=60 (CALC)); POTASSIUM 4.8 mmol/l (3.5-5.1); SGOT/AST 13 u/l (9-36); SODIUM 137 mmol/l (137-146); TOTAL PROTEIN 5.7 g/dL (6.3-8.2)
[2022-05-09 05:43] LABS: ALBUMIN 3.1 g/dL (3.2-5.0)
[2022-05-10 04:27] VITALS: BP 136/69
[2022-05-10 07:01] VITALS: BP 112/60
[2022-05-10 10:36] VITALS: BP 125/65
[2022-05-10 14:35] VITALS: BP 135/68
[2022-05-10 18:35] VITALS: BP 123/65
[2022-05-11 00:09] VITALS: BP 121/72
[2022-05-11 04:30] VITALS: BP 151/80
[2022-05-11 05:23] LABS: BASO% 0.7 % (0-3); EOS% 3.1 % (0-8); HEMATOCRIT 37.2 % (37.0-47.0); HEMOGLOBIN 12.2 g/dl (12.0-16.0); IMMATURE GRANULOCYTES 0.1 % (0.0-5.0); LYMPH% 23.7 % (15-41); MEAN CELL VOLUME 96.1 fL CALC (80.0-100.0); MEAN CORPUSCULAR HGB 31.5 pG CALC (26.0-32.0); MEAN CORPUSCULAR HGB CONC 32.8 g/dL CAL (32.0-36.0); MONO% 7.1 % (2-13); NEUT# 4.71 thou/uL (2.00-7.15); NEUT% 65.3 % (42-76); RED BLOOD COUNT 3.87 mill/uL (4.20-5.60); RED CELL DISTRI WIDTH 14.7 % (11.5-15.5)
[2022-05-11 05:46] LABS: ALBUMIN 2.8 g/dL (3.2-5.0); ALKALINE PHOSPHATASE 111 u/l (38-126); ANION GAP 5 (6-22 (CALC)); BUN 10 mg/dL (8-23); BUN/CREATININE RATIO 18 (12-20 (CALC)); CARBON DIOXIDE 28 mmol/l (22-30); CHLORIDE 108 mmol/l (95-108); CREATININE 0.6 mg/dL (0.5-1.0); GFR FOR AFR.AMER. > 60 ML/MIN (>=60 (CALC)); GFR OTHER RACES > 60 ML/MIN (>=60 (CALC)); POTASSIUM 4.2 mmol/l (3.5-5.1); SGOT/AST 15 u/l (9-36); SODIUM 137 mmol/l (137-146); TOTAL PROTEIN 5.4 g/dL (6.3-8.2)
[2022-05-11 10:53] VITALS: BP 119/72
[2022-05-11 15:00] VITALS: BP 156/73
[2022-05-11 18:52] VITALS: BP 134/58
[2022-05-12 00:22] VITALS: BP 154/80
[2022-05-12 04:33] VITALS: BP 146/57
[2022-05-12 04:36] LABS: BASO% 0.7 % (0-3); EOS% 4.3 % (0-8); HEMATOCRIT 36.9 % (37.0-47.0); HEMOGLOBIN 12.1 g/dl (12.0-16.0); IMMATURE GRANULOCYTES 0.7 % (0.0-5.0); LYMPH% 21.6 % (15-41); MEAN CELL VOLUME 95.3 fL CALC (80.0-100.0); MEAN CORPUSCULAR HGB 31.3 pG CALC (26.0-32.0); MEAN CORPUSCULAR HGB CONC 32.8 g/dL CAL (32.0-36.0); MONO% 7.3 % (2-13); NEUT# 4.82 thou/uL (2.00-7.15); NEUT% 65.4 % (42-76); RED BLOOD COUNT 3.87 mill/uL (4.20-5.60); RED CELL DISTRI WIDTH 14.6 % (11.5-15.5)
[2022-05-12 05:03] LABS: ALBUMIN 2.9 g/dL (3.2-5.0); ALKALINE PHOSPHATASE 113 u/l (38-126); ANION GAP 5 (6-22 (CALC)); BUN 6 mg/dL (8-23); BUN/CREATININE RATIO 13 (12-20 (CALC)); CARBON DIOXIDE 30 mmol/l (22-30); CHLORIDE 107 mmol/l (95-108); CREATININE 0.5 mg/dL (0.5-1.0); GFR FOR AFR.AMER. > 60 ML/MIN (>=60 (CALC)); GFR OTHER RACES > 60 ML/MIN (>=60 (CALC)); POTASSIUM 3.9 mmol/l (3.5-5.1); SGOT/AST 19 u/l (9-36); SODIUM 138 mmol/l (137-146); TOTAL PROTEIN 5.5 g/dL (6.3-8.2)
[2022-05-12 06:13] VITALS: BP 149/84
[2022-05-12 10:13] VITALS: BP 142/81
[2022-05-12] MEDS ORDERED: MEROPENEM1 GM IV (13:37)
[2022-05-12] MEDS ORDERED: TRAMADOL HCL50 MG PO (13:58)
== END 2022-05-12 18:20 ==
LOC: ED 13:06 → ED-I 16:20 → ED 16:48 → MS2 16:49
PROVIDERS: Family Medicine; Nurse Practitioner Family; ADMIT Internal Medicine; ATTEND Internal Medicine
PROC: 02HV33Z Insertion of Infusion Device into Superior Vena Cava, Percutaneous Approach (ICD-10-PCS; principal; 2022-05-11)
PROC: B518ZZA Fluoroscopy of Superior Vena Cava, Guidance (ICD-10-PCS; 2022-05-11)
DX: R53.1 Weakness (principal); R62.7 Adult failure to thrive; N39.0 Urinary tract infection, site not specified; I10 Essential (primary) hypertension; J43.9 Emphysema, unspecified; E78.5 Hyperlipidemia, unspecified; K21.9 Gastro-esophageal reflux disease without esophagitis; F41.8 Other specified anxiety disorders; F17.200 Nicotine dependence, unspecified, uncomplicated; S72.001D Fracture of unspecified part of neck of right femur, subsequent encounter for closed fracture with routine healing; W19.XXXD Unspecified fall, subsequent encounter; B96.20 Unspecified Escherichia coli [E. coli] as the cause of diseases classified elsewhere; Z16.12 Extended spectrum beta lactamase (ESBL) resistance; Z20.822 Contact with and (suspected) exposure to COVID-19; Z98.890 Other specified postprocedural states

== ENCOUNTER 2022-09-04 11:04 | Observation (INO) | payer MEDICARE, MEDICAID ==
[~2022-09-04] VITALS: Ht 160 cm; Wt 56.0 kg
[2022-09-04] VITALS (41 sets, daily range): BP systolic 118–161; BP diastolic 69–121
[~2022-09-04 11:04] MED LIST changes: +MEROPENEM1 GM IV
[2022-09-04 11:45] LABS: BASO% 0.6 % (0-3); EOS% 1.6 % (0-8); IMMATURE GRANULOCYTES 0.1 % (0.0-5.0); LYMPH% 13.8 % (15-41); MEAN CELL VOLUME 92.7 fL CALC (80.0-100.0); MEAN CORPUSCULAR HGB 29.5 pG CALC (26.0-32.0); MEAN CORPUSCULAR HGB CONC 31.8 g/dL CAL (32.0-36.0); MONO% 6.5 % (2-13); NEUT# 6.4 thou/uL (2.00-7.15); NEUT% 77.4 % (42-76); RED BLOOD COUNT 4.78 mill/uL (4.20-5.60); RED CELL DISTRI WIDTH 14.6 % (11.5-15.5)
[2022-09-04 11:53] LABS: ALKALINE PHOSPHATASE 74 u/l (38-126); BUN 10 mg/dL (8-23); BUN/CREATININE RATIO 24 (12-20 (CALC)); CHLORIDE 107 mmol/l (95-108); CREATININE 0.4 mg/dL (0.5-1.0); GFR FOR AFR.AMER. > 60 ML/MIN (>=60 (CALC)); GFR OTHER RACES > 60 ML/MIN (>=60 (CALC)); POTASSIUM 3.7 mmol/l (3.5-5.1); SGOT/AST 26 u/l (9-36); SODIUM 138 mmol/l (137-146); TOTAL PROTEIN 6.3 g/dL (6.3-8.2)
[2022-09-04 11:54] LABS: ALBUMIN 3.7 g/dL (3.2-5.0); ANION GAP 12 (6-22 (CALC)); BILIRUBIN, TOTAL 0.6 mg/dL (0.02-1.3); CARBON DIOXIDE 23 mmol/l (22-30); HEMATOCRIT 44.3 % (37.0-47.0); HEMOGLOBIN 14.1 g/dl (12.0-16.0)
[2022-09-04 18:47] LABS: ANION GAP 12 (6-22 (CALC)); BUN 10 mg/dL (8-23); BUN/CREATININE RATIO 22 (12-20 (CALC)); CARBON DIOXIDE 24 mmol/l (22-30); CHLORIDE 103 mmol/l (95-108); CREATININE 0.4 mg/dL (0.5-1.0); GFR FOR AFR.AMER. > 60 ML/MIN (>=60 (CALC)); GFR OTHER RACES > 60 ML/MIN (>=60 (CALC)); POTASSIUM 3.7 mmol/l (3.5-5.1); SODIUM 135 mmol/l (137-146)
[2022-09-05 04:00] VITALS: BP 154/85
[2022-09-05 04:16] VITALS: BP 154/85
[2022-09-05 05:14] LABS: URINE BILIRUBIN - DIPSTICK SMALL (NEGATIVE); URINE COLOR YELLOW; URINE GLUCOSE - DIPSTICK NEGATIVE (NEGATIVE); URINE KETONE 15 mg/dL (NEGATIVE); URINE PH 6.5 (4.5-8.0); URINE PROTEIN - DIPSTICK NEGATIVE (NEG-TRACE); URINE UROBILINOGEN - DIPSTICK 0.2 E.U./dL (0.2)
[2022-09-05 05:35] LABS: ALBUMIN 3.1 g/dL (3.2-5.0); ALKALINE PHOSPHATASE 67 u/l (38-126); ANION GAP 8 (6-22 (CALC)); BUN 11 mg/dL (8-23); BUN/CREATININE RATIO 23 (12-20 (CALC)); CARBON DIOXIDE 28 mmol/l (22-30); CHLORIDE 105 mmol/l (95-108); CREATININE 0.5 mg/dL (0.5-1.0); GFR FOR AFR.AMER. > 60 ML/MIN (>=60 (CALC)); GFR OTHER RACES > 60 ML/MIN (>=60 (CALC)); POTASSIUM 3.7 mmol/l (3.5-5.1); SGOT/AST 19 u/l (9-36); SODIUM 137 mmol/l (137-146); TOTAL PROTEIN 5.5 g/dL (6.3-8.2)
[2022-09-05 05:43] LABS: BILIRUBIN, TOTAL 0.2 mg/dL (0.02-1.3)
[2022-09-05 06:19] LABS: URINE NITRITE - DIPSTICK NEGATIVE (Negative)
[2022-09-05 06:20] LABS: URINE BLOOD DIPSTICK NEGATIVE (NEGATIVE); URINE LEUK ESTERASE SMALL (NEGATIVE)
[2022-09-05 06:21] LABS: URINE WBC 20-50 WBC/hpf (0-5)
[2022-09-05 06:22] LABS: URINE BACTERIA MANY hpf; URINE EPITHELIAL CELLS FEW EPI/hpf (0-FEW)
[2022-09-05 06:23] VITALS: BP 149/77
[2022-09-05 09:19] VITALS: BP 132/76
[2022-09-05 15:34] VITALS: BP 142/75
[2022-09-05 19:00] VITALS: BP 137/72
[2022-09-06 04:39] VITALS: BP 129/68
[2022-09-06 07:26] VITALS: BP 152/84
[2022-09-06 12:41] VITALS: BP 135/80
[2022-09-06] MEDS ORDERED: LEXAPRO10 MG PO (12:53)
== END 2022-09-06 14:30 | disposition home health service (06) ==
LOC: ED 11:04 → ED-I 17:32 → ED 17:50 → MS2 17:51
PROVIDERS: Family Medicine; ADMIT Internal Medicine; ATTEND Internal Medicine
DX: R53.1 Weakness (principal); M16.11 Unilateral primary osteoarthritis, right hip; R62.7 Adult failure to thrive; M41.9 Scoliosis, unspecified; I10 Essential (primary) hypertension; J43.9 Emphysema, unspecified; E78.5 Hyperlipidemia, unspecified; F41.0 Panic disorder [episodic paroxysmal anxiety]; F31.9 Bipolar disorder, unspecified; K21.9 Gastro-esophageal reflux disease without esophagitis; F17.200 Nicotine dependence, unspecified, uncomplicated; Z68.21 Body mass index [BMI] 21.0-21.9, adult; Z87.81 Personal history of (healed) traumatic fracture; Z91.81 History of falling; Z20.822 Contact with and (suspected) exposure to COVID-19

== ENCOUNTER 2022-09-12 06:38 | Emergency (ER) | payer MEDICARE, MEDICAID ==
[2022-09-12] VITALS (36 sets, daily range): BP systolic 123–167; BP diastolic 75–100
[~2022-09-12] VITALS: Ht 160 cm; Wt 54.4 kg
[2022-09-12 07:29] LABS: BASO% 0.3 % (0-3); EOS% 1.5 % (0-8); HEMATOCRIT 48.6 % (37.0-47.0); HEMOGLOBIN 15.4 g/dl (12.0-16.0); IMMATURE GRANULOCYTES 0.1 % (0.0-5.0); LYMPH% 14.6 % (15-41); MEAN CELL VOLUME 92.6 fL CALC (80.0-100.0); MEAN CORPUSCULAR HGB 29.3 pG CALC (26.0-32.0); MEAN CORPUSCULAR HGB CONC 31.7 g/dL CAL (32.0-36.0); MONO% 6.1 % (2-13); NEUT# 6.73 thou/uL (2.00-7.15); NEUT% 77.4 % (42-76); RED BLOOD COUNT 5.25 mill/uL (4.20-5.60); RED CELL DISTRI WIDTH 15.3 % (11.5-15.5)
[2022-09-12 07:32] LABS: URINE BILIRUBIN - DIPSTICK NEGATIVE (NEGATIVE); URINE BLOOD DIPSTICK NEGATIVE (NEGATIVE); URINE COLOR YELLOW; URINE GLUCOSE - DIPSTICK NEGATIVE (NEGATIVE); URINE KETONE NEGATIVE (NEGATIVE); URINE PROTEIN - DIPSTICK NEGATIVE (NEG-TRACE); URINE SPECIFIC GRAVITY 1.015; URINE UROBILINOGEN - DIPSTICK 0.2 E.U./dL (0.2)
[2022-09-12 07:33] LABS: URINE LEUK ESTERASE LARGE (NEGATIVE); URINE NITRITE - DIPSTICK NEGATIVE (Negative)
[2022-09-12 07:37] LABS: ALKALINE PHOSPHATASE 94 u/l (38-126); ANION GAP 13 (6-22 (CALC)); BUN 6 mg/dL (8-23); BUN/CREATININE RATIO 11 (12-20 (CALC)); CARBON DIOXIDE 24 mmol/l (22-30); CHLORIDE 106 mmol/l (95-108); CPK 48 u/l (30-135); CREATININE 0.5 mg/dL (0.5-1.0); ETHYL ALCOHOL 0 mg/dl (0-30); GFR FOR AFR.AMER. > 60 ML/MIN (>=60 (CALC)); GFR OTHER RACES > 60 ML/MIN (>=60 (CALC)); MAGNESIUM 1.7 mg/dL (1.6-2.3); POTASSIUM 3.8 mmol/l (3.5-5.1); SGOT/AST 22 u/l (9-36); SODIUM 138 mmol/l (137-146)
[2022-09-12 07:38] LABS: BILIRUBIN, TOTAL 0.4 mg/dL (0.02-1.3); TOTAL PROTEIN 7.1 g/dL (6.3-8.2)
[2022-09-12 07:48] LABS: URINE BACTERIA FEW hpf; URINE SQUAMOUS EPITHELIAL CELL FEW EPI/hpf (0-FEW); URINE WBC 20-50 WBC/hpf (0-5)
== END 2022-09-12 16:42 | disposition home or self-care (01) ==
LOC: ED 06:38
PROVIDERS: Family Medicine
DX: M25.551 Pain in right hip (principal); M25.561 Pain in right knee; M25.562 Pain in left knee; M25.552 Pain in left hip; I10 Essential (primary) hypertension; J44.9 Chronic obstructive pulmonary disease, unspecified; F41.0 Panic disorder [episodic paroxysmal anxiety]; F31.9 Bipolar disorder, unspecified; F17.200 Nicotine dependence, unspecified, uncomplicated; Z91.81 History of falling; Z60.2 Problems related to living alone

== ENCOUNTER 2022-09-23 15:34 | Emergency (ER) | payer MEDICARE, MEDICAID ==
[~2022-09-23] VITALS: Ht 160 cm; Wt 58.2 kg
[2022-09-23 15:47] VITALS: BP 136/93
[2022-09-23 16:00] VITALS: BP 136/93
[2022-09-23 18:14] VITALS: BP 136/93
== END 2022-09-23 18:30 | disposition home or self-care (01) ==
LOC: ED 15:34
DX: M25.551 Pain in right hip (principal); I10 Essential (primary) hypertension; J44.9 Chronic obstructive pulmonary disease, unspecified; F41.9 Anxiety disorder, unspecified; F31.9 Bipolar disorder, unspecified; F17.200 Nicotine dependence, unspecified, uncomplicated

== ENCOUNTER 2022-10-02 14:13 | Emergency (ER) | payer MEDICARE, MEDICAID ==
[~2022-10-02] VITALS: Ht 160 cm; Wt 54.7 kg
[2022-10-02] VITALS (10 sets, daily range): BP systolic 120–148; BP diastolic 65–109
== END 2022-10-02 16:42 | disposition home or self-care (01) ==
LOC: ED 14:13
DX: M41.9 Scoliosis, unspecified (principal); R53.1 Weakness; I10 Essential (primary) hypertension; J44.9 Chronic obstructive pulmonary disease, unspecified; F31.9 Bipolar disorder, unspecified; F41.9 Anxiety disorder, unspecified; F17.200 Nicotine dependence, unspecified, uncomplicated

== ENCOUNTER 2022-11-30 17:08 | Emergency (ER) | payer MEDICARE, MEDICAID ==
[2022-11-30] VITALS (23 sets, daily range): BP systolic 73–126; BP diastolic 49–81
[~2022-11-30] VITALS: Ht 160 cm; Wt 57.0 kg
[2022-11-30 18:00] LABS: BASO% 0.5 % (0-3); EOS% 0.6 % (0-8); IMMATURE GRANULOCYTES 0.1 % (0.0-5.0); LYMPH% 12.5 % (15-41); MEAN CELL VOLUME 94.5 fL CALC (80.0-100.0); MEAN CORPUSCULAR HGB 30.5 pG CALC (26.0-32.0); MEAN CORPUSCULAR HGB CONC 32.3 g/dL CAL (32.0-36.0); MONO% 6.7 % (2-13); NEUT# 7.49 thou/uL (2.00-7.15); NEUT% 79.6 % (42-76); RED BLOOD COUNT 4.56 mill/uL (4.20-5.60); RED CELL DISTRI WIDTH 14.1 % (11.5-15.5)
[2022-11-30 18:07] LABS: ALKALINE PHOSPHATASE 88 u/l (38-126); ANION GAP 11 (6-22 (CALC)); BUN 5 mg/dL (8-23); BUN/CREATININE RATIO 10 (12-20 (CALC)); CARBON DIOXIDE 23 mmol/l (22-30); CHLORIDE 102 mmol/l (95-108); CREATININE 0.5 mg/dL (0.5-1.0); GFR FOR AFR.AMER. > 60 ML/MIN (>=60 (CALC)); GFR OTHER RACES > 60 ML/MIN (>=60 (CALC)); POTASSIUM 3.3 mmol/l (3.5-5.1); SGOT/AST 35 u/l (9-36); SODIUM 133 mmol/l (137-146)
[2022-11-30 18:16] LABS: ALBUMIN 3.7 g/dL (3.2-5.0); BILIRUBIN, TOTAL 0.7 mg/dL (0.02-1.3); TOTAL PROTEIN 6.5 g/dL (6.3-8.2)
[2022-11-30 18:29] LABS: HEMATOCRIT 43.1 % (37.0-47.0); HEMOGLOBIN 13.9 g/dl (12.0-16.0)
[2022-11-30 19:03] LABS: URINE BILIRUBIN - DIPSTICK NEGATIVE (NEGATIVE); URINE COLOR YELLOW; URINE GLUCOSE - DIPSTICK NEGATIVE (NEGATIVE); URINE KETONE 15 mg/dL (NEGATIVE); URINE PH 7.5 (4.5-8.0); URINE PROTEIN - DIPSTICK NEGATIVE (NEG-TRACE); URINE UROBILINOGEN - DIPSTICK 0.2 E.U./dL (0.2)
[2022-11-30 19:04] LABS: URINE BLOOD DIPSTICK NEGATIVE (NEGATIVE); URINE LEUK ESTERASE SMALL (NEGATIVE); URINE NITRITE - DIPSTICK NEGATIVE (Negative)
[2022-11-30 19:13] LABS: URINE SQUAMOUS EPITHELIAL CELL FEW EPI/hpf (0-FEW)
== END 2022-11-30 21:12 | disposition short-term general hospital (02) ==
LOC: ED 17:08
PROVIDERS: Family Medicine
DX: R55 Syncope and collapse (principal); R79.89 Other specified abnormal findings of blood chemistry; I10 Essential (primary) hypertension; E78.5 Hyperlipidemia, unspecified; J44.9 Chronic obstructive pulmonary disease, unspecified; F31.9 Bipolar disorder, unspecified; F41.0 Panic disorder [episodic paroxysmal anxiety]; F17.210 Nicotine dependence, cigarettes, uncomplicated; Z79.891 Long term (current) use of opiate analgesic
CPT/HCPCS: J1644

== ENCOUNTER 2022-12-25 13:51 | Emergency (ER) | payer MEDICARE, MEDICAID ==
[~2022-12-25] VITALS: Ht 160 cm; Wt 54.4 kg
[2022-12-25] MEDS ORDERED: ATIVAN1 MG PO (15:28)
[2022-12-25 16:19] VITALS: BP 119/79
== END 2022-12-25 16:19 | disposition home or self-care (01) ==
LOC: ED 13:51
DX: F41.9 Anxiety disorder, unspecified (principal); I10 Essential (primary) hypertension; J44.9 Chronic obstructive pulmonary disease, unspecified; F31.9 Bipolar disorder, unspecified; F17.200 Nicotine dependence, unspecified, uncomplicated; T42.4X6A Underdosing of benzodiazepines, initial encounter; Z91.128 Patient's intentional underdosing of medication regimen for other reason

== ENCOUNTER 2023-01-09 12:35 | Emergency (ER) | payer MEDICARE, MEDICAID ==
[~2023-01-09] VITALS: Ht 160 cm; Wt 53.5 kg
[~2023-01-09 12:35] MED LIST changes: +ATIVAN1 MG PO
[2023-01-09 12:39] VITALS: BP 136/81
[2023-01-09] MEDS ORDERED: HYDROCHLOROT12.5 M1 PO (12:43)
[2023-01-09 13:00] VITALS: BP 116/74
[2023-01-09 13:18] LABS: BASO% 0.7 % (0-3); EOS% 1.1 % (0-8); HEMATOCRIT 43.4 % (37.0-47.0); HEMOGLOBIN 14.5 g/dl (12.0-16.0); IMMATURE GRANULOCYTES 0.1 % (0.0-5.0); MEAN CELL VOLUME 92.7 fL CALC (80.0-100.0); MEAN CORPUSCULAR HGB CONC 33.4 g/dL CAL (32.0-36.0); MONO% 6.3 % (2-13); NEUT# 5.04 thou/uL (2.00-7.15); NEUT% 62.8 % (42-76); RED BLOOD COUNT 4.68 mill/uL (4.20-5.60)
[2023-01-09 13:19] LABS: ALKALINE PHOSPHATASE 96 u/l (38-126); BUN 12 mg/dL (8-23); BUN/CREATININE RATIO 24 (12-20 (CALC)); CARBON DIOXIDE 26 mmol/l (22-30); CHLORIDE 95 mmol/l (95-108); CREATININE 0.5 mg/dL (0.5-1.0); GFR FOR AFR.AMER. > 60 ML/MIN (>=60 (CALC)); GFR OTHER RACES > 60 ML/MIN (>=60 (CALC)); SGOT/AST 23 u/l (9-36); SODIUM 130 mmol/l (137-146)
[2023-01-09 13:21] LABS: ANION GAP 13 (6-22 (CALC)); BILIRUBIN, TOTAL 0.4 mg/dL (0.02-1.3)
[2023-01-09 13:30] VITALS: BP 119/61
[2023-01-09 13:50] LABS: TSH, 3RD GENERATION 1.59 uIU/mL (0.47 - 4.68)
[2023-01-09] MEDS ORDERED: TRAZODONE HCL50 MG PO (13:55)
[2023-01-09 14:00] VITALS: BP 121/67
[2023-01-09 14:02] VITALS: BP 121/67
== END 2023-01-09 14:40 | disposition home or self-care (01) ==
LOC: ED 12:35
PROVIDERS: Family Medicine
DX: F41.9 Anxiety disorder, unspecified (principal); I10 Essential (primary) hypertension; F31.9 Bipolar disorder, unspecified; K21.9 Gastro-esophageal reflux disease without esophagitis; J43.9 Emphysema, unspecified; M41.9 Scoliosis, unspecified; F17.200 Nicotine dependence, unspecified, uncomplicated

== ENCOUNTER 2023-01-15 16:22 | Emergency (ER) | payer MEDICARE, MEDICAID ==
[~2023-01-15] VITALS: Ht 160 cm; Wt 53.0 kg
[~2023-01-15 16:22] MED LIST changes: +HYDROCHLOROT12.5 M1 PO; +TRAZODONE HCL50 MG PO
[2023-01-15 16:26] VITALS: BP 127/79
[2023-01-15 16:30] VITALS: BP 128/76
[2023-01-15 16:45] VITALS: BP 126/82
[2023-01-15 16:52] VITALS: BP 126/82
== END 2023-01-15 17:01 | disposition home or self-care (01) ==
LOC: ED 16:22
DX: F41.1 Generalized anxiety disorder (principal); F31.9 Bipolar disorder, unspecified; J44.9 Chronic obstructive pulmonary disease, unspecified; F17.200 Nicotine dependence, unspecified, uncomplicated

== ENCOUNTER 2023-05-06 08:53 | Emergency (ER) | payer MEDICARE, MEDICAID ==
[~2023-05-06] VITALS: Ht 160 cm; Wt 53.0 kg
[~2023-05-06 08:53] MED LIST changes: +ASPERCREME LIDOCA41 TOP; +ATIVAN1 M1 PO; +DULERA1 AE1 PO; +MECLIZINE25 MG PO; +MYRBETRIQ50 MG PO; +PROMETHAZINE HY25 M1 PO; +PROTONIX40 M2 PO; +RISPERDAL0.5 MG PO; +SEROQUEL50 MG PO
[2023-05-06 08:59] VITALS: BP 132/88
[2023-05-06 09:00] VITALS: BP 130/82
[2023-05-06 09:30] VITALS: BP 126/86
[2023-05-06 10:00] VITALS: BP 143/80
[2023-05-06 10:31] VITALS: BP 143/80
== END 2023-05-06 10:36 | disposition home or self-care (01) ==
LOC: ED 08:53
DX: F41.1 Generalized anxiety disorder (principal); M62.81 Muscle weakness (generalized); I10 Essential (primary) hypertension; J44.9 Chronic obstructive pulmonary disease, unspecified; F31.9 Bipolar disorder, unspecified; F17.200 Nicotine dependence, unspecified, uncomplicated

== ENCOUNTER 2023-06-07 04:22 | Observation (INO) | payer MEDICARE, MEDICAID ==
[~2023-06-07] VITALS: Ht 160 cm; Wt 55.0 kg
--- NOTE | 2023-06-07 04:22 | NUR ---
PATIENT TO ROOM 2 VIA EMS, PER EMS REPORT PATIENT HAS BEEN OUT OF MEDICATION X 4 DAYS. NAUSEA AND ANXIETY STARTED YESTERDAY, PER PATIENT SHE HAS HAD MUTIPLE EPISODES OF BILLIOUS VOMITING.
[2023-06-07 04:30] VITALS: BP 157/89
[2023-06-07 05:00] VITALS: BP 157/93
[2023-06-07 05:06] LABS: BASO% 0.4 % (0-3); EOS% 0.3 % (0-8); HEMATOCRIT 43.9 % (37.0-47.0); HEMOGLOBIN 14.8 g/dl (12.0-16.0); IMMATURE GRANULOCYTES 0.1 % (0.0-5.0); LYMPH% 10.5 % (15-41); MEAN CELL VOLUME 90.1 fL CALC (80.0-100.0); MEAN CORPUSCULAR HGB 30.4 pG CALC (26.0-32.0); MEAN CORPUSCULAR HGB CONC 33.7 g/dL CAL (32.0-36.0); MONO% 4.3 % (2-13); NEUT# 6.67 thou/uL (2.00-7.15); NEUT% 84.4 % (42-76); RED BLOOD COUNT 4.87 mill/uL (4.20-5.60); RED CELL DISTRI WIDTH 15.4 % (11.5-15.5)
[2023-06-07 05:18] LABS: ALBUMIN 4.4 g/dL (3.2-5.0); ALKALINE PHOSPHATASE 87 u/l (38-126); ANION GAP 13 (6-22 (CALC)); BILIRUBIN, TOTAL 0.9 mg/dL (0.02-1.3); BUN 4 mg/dL (8-23); BUN/CREATININE RATIO 11 (12-20 (CALC)); CARBON DIOXIDE 23 mmol/l (22-30); CHLORIDE 91 mmol/l (95-108); CREATININE 0.3 mg/dL (0.5-1.0); GFR FOR AFR.AMER. > 60 ML/MIN (>=60 (CALC)); GFR OTHER RACES > 60 ML/MIN (>=60 (CALC)); POTASSIUM 3.1 mmol/l (3.5-5.1); SGOT/AST 22 u/l (9-36); SODIUM 124 mmol/l (137-146); TOTAL PROTEIN 7.3 g/dL (6.3-8.2)
--- NOTE | 2023-06-07 05:36 | NUR ---
PT SITTING IN RM AWAITING RESULTS AT THIS TIME. CALL LIGHT WITHIN REACH AND PT HAS NO NEEDS OR CONCERNS AT THIS TIME.
--- NOTE | 2023-06-07 06:38 | NUR ---
PT RESTING IN RM AWAITING ADMISSION AT THIS TIME. PT HAS FLUIDS GOING AND AWAITING BLOOD CULTURES TO BE DRAWN FOR ABX TO BE GIVEN. CALL LIGHT WITHIN REACH.
--- NOTE | 2023-06-07 07:08 | NUR ---
ATTEMPTED TO GIVE REPORT TO MED SURG NURSE AND THEY WERE UNAVAILABLE. CALL LIGHT WITHIN REACH. REPORT GIVEN TO VANESA SANCHEZ AND CARE RELINQUISHED AT THIS TIME.
--- NOTE | 2023-06-07 07:15 | NUR ---
REPORT GIVEN TO SOFÍA BY NURSE PRIOR TO LEAVING SHIFT.
--- NOTE | 2023-06-07 08:00 | NUR ---
PT IN ROOM RESTING. ROCEHPIN ADMINISTERED AT THIS TIME. NO ISSUES TO REPORT. BREAKFAST TRAY ORDERED FOR PT.
--- NOTE | 2023-06-07 09:00 | NUR ---
PT TO FLOOR ROOM 278 VIA WHEELCHAIR. PT IS ON TELE. PT WAS CLEANED UP, CHANGED INTO A GOWN BEFORE TRANSPORT TO FLOOR. PT HAD AND AN ACCIDENT IN ROOM BY URINATING ALL OVER HERSELF IN THE BED.. NO CONCERNS TO REPORT AT THIS TIME.
--- NOTE | 2023-06-07 09:00 | NUR ---
PT ARRIVED TO [facility] ROOM 278. PT A/OX3. RESPIRATIONS EVEN AND UNLABORED ON ROOM AIR. EXPIRATORY WHEEZING NOTED UPON ASCULATATION. HEART RHYTHM NORMAL WITH TELE IN PLACE. BOWEL SOUNDS ACTIVE. #20G LAC INFUSING WITH IVF PER ORDER. SKIN INTACT. 1+EDEMA TO BLE NOTED. PT C/O OF 9/10 PAIN TO BACK, TO BE MEDICATED PER EMAR. ALLERGIES NOTED AND FALL RISK BAND APPLIED. PT ORIENTED TO ROOM AND CALL SYSTEM. ALL SAFETY PRECAUTIONS ARE IN PLACE WITH CALL LIGHT IN REACH.
[2023-06-07 09:34] VITALS: BP 170/94
[2023-06-07] MEDS ORDERED: HYDROCHLOROT12.5 M1 PO (10:19)
[2023-06-07] MEDS ORDERED: LEXAPRO10 MG PO (10:20)
[2023-06-07] MEDS ORDERED: RISPERDAL0.5 MG PO (10:20)
[2023-06-07] MEDS ORDERED: MYRBETRIQ25 MG PO (10:21)
[2023-06-07] MEDS ORDERED: TOPAMAX100 MG PO (10:21)
[2023-06-07] MEDS ORDERED: ATORVASTATIN CA10 MG PO (10:23)
[2023-06-07] MEDS ORDERED: DULERA1 AE1 PO (10:23)
[2023-06-07] MEDS ORDERED: LIDOCAINE52 TOP (10:24)
[2023-06-07 10:53] VITALS: BP 157/98
[2023-06-07] MEDS ORDERED: ALBUTEROL SUL0.083 % IN (11:02)
--- NOTE | 2023-06-07 12:00 | NUR ---
PT RESTING IN SEMI FOWLERS POSITION. RESPIRATIONS EVEN AND UNLABORED ON ROOM AIR. TELE MONITORING IN PLACE. PT DENIES OF ANY NEEDS. ALL SAFETY PRECAUTIONS ARE IN PLACE WITH CALL LIGHT IN REACH.
[2023-06-07 14:04] LABS: BUN 3 mg/dL (8-23); BUN/CREATININE RATIO 8 (12-20 (CALC)); CHLORIDE 99 mmol/l (95-108); CREATININE 0.4 mg/dL (0.5-1.0); GFR FOR AFR.AMER. > 60 ML/MIN (>=60 (CALC)); GFR OTHER RACES > 60 ML/MIN (>=60 (CALC)); SODIUM 128 mmol/l (137-146)
[2023-06-07 14:05] LABS: ALBUMIN 3.7 g/dL (3.2-5.0); ALKALINE PHOSPHATASE 72 u/l (38-126); ANION GAP 10 (6-22 (CALC)); BILIRUBIN, TOTAL 0.6 mg/dL (0.02-1.3); CARBON DIOXIDE 23 mmol/l (22-30); SGOT/AST 23 u/l (9-36); TOTAL PROTEIN 6.1 g/dL (6.3-8.2)
[2023-06-07 14:48] VITALS: BP 120/68
--- NOTE | 2023-06-07 16:09 | NUR ---
PT SLEEPING IN LOW FOWLERS POSITION. RESPIRATIONS EVEN AND UNLABORED ON ROOM AIR. TELE MONITORING IN PLACE. IV PATENT. NO SIGNS OF DISTRESS. ALL SAFETY PRECAUTIONS ARE IN PLACE WITH CALL LIGHT IN REACH.
[2023-06-07 19:16] VITALS: BP 113/71
--- NOTE | 2023-06-07 20:00 | NUR ---
PT RESTING NURSE HELP PT TO BSC WITH MINIMAL ASSISTANCE. NIGHT MED GIVEN AFTER ASSESSMENT. NO DISTRESS NOTED ON EXAM. CALL LIGHT WITHIN REACH. PLAN OF CARE ONGOING.
[2023-06-08] VITALS (7 sets, daily range): BP systolic 123–146; BP diastolic 68–87
--- NOTE | 2023-06-08 | NUR ---
PT SLEEPING NO DISTRESS NOTED ON EXAM. CALL LIGHT WITHIN REACH. PLAN OF CARE ONGOING.
--- NOTE | 2023-06-08 04:31 | NUR ---
PT RESTING NO DISTRESS NOTED ON EXAM CALL LIGHT WITHIN REACH. PLAN OF CARE ONGOING.
[2023-06-08 06:09] LABS: BASO% 0.5 % (0-3); EOS% 0.7 % (0-8); IMMATURE GRANULOCYTES 0.1 % (0.0-5.0); LYMPH% 17.7 % (15-41); MEAN CELL VOLUME 91.5 fL CALC (80.0-100.0); MEAN CORPUSCULAR HGB CONC 33.9 g/dL CAL (32.0-36.0); MONO% 7.3 % (2-13); NEUT# 5.56 thou/uL (2.00-7.15); NEUT% 73.7 % (42-76); RED BLOOD COUNT 4.1 mill/uL (4.20-5.60); RED CELL DISTRI WIDTH 15.7 % (11.5-15.5)
[2023-06-08 06:11] LABS: HEMATOCRIT 37.5 % (37.0-47.0); HEMOGLOBIN 12.7 g/dl (12.0-16.0)
[2023-06-08 06:40] LABS: ALKALINE PHOSPHATASE 65 u/l (38-126); ANION GAP 5 (6-22 (CALC)); BILIRUBIN, TOTAL 0.6 mg/dL (0.02-1.3); BUN 5 mg/dL (8-23); BUN/CREATININE RATIO 13 (12-20 (CALC)); CARBON DIOXIDE 24 mmol/l (22-30); CHLORIDE 103 mmol/l (95-108); CREATININE 0.4 mg/dL (0.5-1.0); GFR FOR AFR.AMER. > 60 ML/MIN (>=60 (CALC)); GFR OTHER RACES > 60 ML/MIN (>=60 (CALC)); POTASSIUM 3.8 mmol/l (3.5-5.1); SGOT/AST 16 u/l (9-36); SODIUM 129 mmol/l (137-146); TOTAL PROTEIN 5.2 g/dL (6.3-8.2)
--- NOTE | 2023-06-08 07:00 | NUR ---
BEDSIDE REPORT RECIEVED
--- NOTE | 2023-06-08 08:05 | NUR ---
PT RESTING IN SEMI FOWLERS POSITION. PT A/OX3 AND SLIGHTLY ANXIOUS. RESPIRATIONS ARE EVEN AND UNLABORED ON ROOM. EXPIRATORY WHEEZING NOTED UPON ASCULATATION OF LUNGS. HEART RHYTHM NORMAL WITH TELE IN PLACE. #20G LAC INFUSING WITH IVF PER ORDER. SKIN INTACT WITH 1+ EDEMA NOTED TO BLE. PT MEDICATED FOR PAIN OF LOWER BACK AND HEAD. PT DENIES OF ANY ADDITIONAL NEEDS. ALL SAFETY PRECAUTIONS ARE IN PLACE WITH CALL LIGHT IN REACH.
--- NOTE | 2023-06-08 11:47 | NUR ---
PT RESTING IN SEMI FOWLERS POSITION. RESPIRATIONS UNLABORED. PT REQUEST PAIN MEDICATION BUT IT YET DUE . TELE MONITORING IN PLACE. IVF INFUSING PER ORDER. PT DENIES OF ANY ADDITIONAL NEEDS. ALL SAFETY PRECAUTIONS IN PLACE WITH CALL LIGHT IN REACH
--- NOTE | 2023-06-08 14:04 | NUR ---
ATTEMPTED TO ADMINISTER TORADOL, PT REQUEST ATIVAN. PT INFORMED OF BOTH ATIVAN AND TORADOL PRN PROTOCOL. PT GOT UPSET EXPRESSING HER CONFUSION THAT HER ATIVAN IS FOUR TIMES A DAY AND SHE TAKES IT AT 0800, 1400, AND 1900 AT HOME. PT INFORMED THAT IT IS ONLY 6 HOURS BETWEEN AND THE HOSPITAL PROTOCAL FOR PRN MEDICATIONS. COMMUNICATION AND OUTREACH MANAGER ABLE TO CALM PT DOWN AND RE-EDUCATED PT ON ATIVAN AND TRAMADOL ORDERS. PT VERBLAIZED UNDERSTANDING.
--- NOTE | 2023-06-08 15:23 | NUR ---
PT RESTING IN SEMI FOWLERS POSITION TALKING ON PHONE. PT REMAINS A/OX3. RESPIRATIONS EVEN AND UNLABORED ON ROOM AIR. TELE MONITORING IN PLACE. IV INFUSING PER ORDER. PT DENIES OF ANY NEEDS. ALL SAFETY PRECAUTIONS ARE IN PLACE WITH CALL LIGHT IN REACH
--- NOTE | 2023-06-08 20:00 | NUR ---
PT WAS A SLEEP BUT AWAKE TO DUE ASSESSMENT. NO DISTRESS NOTED ON EXAM. VS WNL. PT THINKING IT WAS AM INSTEAD OF PM. NO NEW CONCERNS AT THIS TIME. CALL LIGHT WITHIN REACH. PLAN OF CARE ONGOING.
--- NOTE | 2023-06-09 | NUR ---
PT RESTING HELPED TO BSC. PT REQUESTED ATIVAN PRN. CALL LIGHT WITHIN REACH. PLAN OF CARE ONGOING.
[2023-06-09 00:11] VITALS: BP 141/83
[2023-06-09 04:26] VITALS: BP 134/85
[2023-06-09 05:57] LABS: BASO% 0.9 % (0-3); EOS% 1.3 % (0-8); HEMATOCRIT 37.4 % (37.0-47.0); HEMOGLOBIN 12.4 g/dl (12.0-16.0); IMMATURE GRANULOCYTES 0.1 % (0.0-5.0); LYMPH% 15.9 % (15-41); MEAN CORPUSCULAR HGB 30.8 pG CALC (26.0-32.0); MEAN CORPUSCULAR HGB CONC 33.2 g/dL CAL (32.0-36.0); MONO% 6.2 % (2-13); NEUT# 5.88 thou/uL (2.00-7.15); NEUT% 75.6 % (42-76); RED BLOOD COUNT 4.02 mill/uL (4.20-5.60); RED CELL DISTRI WIDTH 15.8 % (11.5-15.5)
[2023-06-09 06:19] LABS: ALBUMIN 3.1 g/dL (3.2-5.0); ALKALINE PHOSPHATASE 64 u/l (38-126); ANION GAP 7 (6-22 (CALC)); BILIRUBIN, TOTAL 0.5 mg/dL (0.02-1.3); BUN 7 mg/dL (8-23); BUN/CREATININE RATIO 14 (12-20 (CALC)); CARBON DIOXIDE 25 mmol/l (22-30); CHLORIDE 102 mmol/l (95-108); CREATININE 0.5 mg/dL (0.5-1.0); GFR FOR AFR.AMER. > 60 ML/MIN (>=60 (CALC)); GFR OTHER RACES > 60 ML/MIN (>=60 (CALC)); POTASSIUM 4.2 mmol/l (3.5-5.1); SGOT/AST 17 u/l (9-36); SODIUM 130 mmol/l (137-146); TOTAL PROTEIN 5.3 g/dL (6.3-8.2)
--- NOTE | 2023-06-09 07:00 | NUR ---
BEDSIDE REPORT RECIVED
[2023-06-09 07:07] VITALS: BP 149/90
--- NOTE | 2023-06-09 08:06 | NUR ---
PT RESTING IN SEMI FOWLERS POSITION. RESPIRATIONS EVEN AND UNLABORED ON ROOM AIR. LUNG SOUNDS CLEAR. HEART RHYTHM NORMAL WITH TELE IN PLACE. #20G LAC PATENT. SKIN INTACT. PT C/O 10/16 HEADACHE, OFFERED TRAMADOL. PT REFUSED ASKING FOR ATIVAN. UPON ATTEMPTING TO ADMINISTER ATIVAN, PT REQUESTED ATIVANA DN TRAMADOL TOGETHER, PT INFORMED THAT PAIN MEDICATION WAS NOT GOING TO BE GIVEN TOGETHER. PT VERBLAIZED UNDERSTANDING. ALL SAFETY PRECAUTIONS ARE IN PLACE WITH CALL LIGHT IN REACH
--- NOTE | 2023-06-09 10:27 | NUR ---
PRELIMINARY RESULTS OF G+ COCCI CALLED INTO [facility]. PROBABLE CONTAMINANT. INFORMED DR. LAINEZ. WILL WAIT UNTIL FINAL RESULTS.
[2023-06-09 11:05] VITALS: BP 125/76
--- NOTE | 2023-06-09 11:54 | NUR ---
PT EDUCATED ON DC INSTRUCTIONS AND CONTINUING HOME MEDICATIONS. PT VERBLAIZED UNDERSTANDING. IV REMOVED WITH CATH INTACT. TELE REMOVED, ER INFORMED.
--- NOTE | 2023-06-09 12:01 | NUR ---
PT DC HOME VIA WHEELCHAIR ACCOMPAINED BY STAFF IN STABLE CONDITION. ALL PERSONAL BELONGINGS WITH PATIENT.
== END 2023-06-09 12:01 | disposition home health service (06) ==
LOC: ED 04:22 → ED-I 06:04 → ED 06:24 → MS2 06:25
PROVIDERS: Family Medicine; Nurse Practitioner Family; ADMIT Internal Medicine; ATTEND Internal Medicine
DX: E87.1 Hypo-osmolality and hyponatremia (principal); J44.1 Chronic obstructive pulmonary disease with (acute) exacerbation; J44.0 Chronic obstructive pulmonary disease with (acute) lower respiratory infection; J20.9 Acute bronchitis, unspecified; E87.6 Hypokalemia; F41.1 Generalized anxiety disorder; I10 Essential (primary) hypertension; F31.61 Bipolar disorder, current episode mixed, mild; K21.9 Gastro-esophageal reflux disease without esophagitis; E78.5 Hyperlipidemia, unspecified; F17.200 Nicotine dependence, unspecified, uncomplicated; T50.916A Underdosing of multiple unspecified drugs, medicaments and biological substances, initial encounter; Z91.128 Patient's intentional underdosing of medication regimen for other reason; Z87.440 Personal history of urinary (tract) infections; Z20.822 Contact with and (suspected) exposure to COVID-19
CPT/HCPCS: J1650

== ENCOUNTER 2023-06-16 12:00 | Emergency (ER) | payer MEDICARE, MEDICAID ==
[~2023-06-16 12:00] MED LIST changes: +LIDOCAINE52 TOP; +MYRBETRIQ25 MG PO
[2023-06-16 12:47] LABS: BASO% 0.8 % (0-3); EOS% 0.8 % (0-8); HEMATOCRIT 42.4 % (37.0-47.0); IMMATURE GRANULOCYTES 0.1 % (0.0-5.0); LYMPH% 16.2 % (15-41); MEAN CELL VOLUME 91.4 fL CALC (80.0-100.0); MONO% 6.5 % (2-13); NEUT# 5.91 thou/uL (2.00-7.15); NEUT% 75.6 % (42-76); RED BLOOD COUNT 4.64 mill/uL (4.20-5.60); RED CELL DISTRI WIDTH 14.7 % (11.5-15.5)
[2023-06-16 12:50] LABS: HEMOGLOBIN 14.4 g/dl (12.0-16.0)
[2023-06-16 13:49] LABS: ALKALINE PHOSPHATASE 78 u/l (38-126); ANION GAP 12 (6-22 (CALC)); BILIRUBIN, TOTAL 0.3 mg/dL (0.02-1.3); BUN 4 mg/dL (8-23); BUN/CREATININE RATIO 8 (12-20 (CALC)); CARBON DIOXIDE 26 mmol/l (22-30); CHLORIDE 93 mmol/l (95-108); CREATININE 0.4 mg/dL (0.5-1.0); GFR FOR AFR.AMER. > 60 ML/MIN (>=60 (CALC)); GFR OTHER RACES > 60 ML/MIN (>=60 (CALC)); LIPASE 45 u/l (23-300); POTASSIUM 4.2 mmol/l (3.5-5.1); SGOT/AST 19 u/l (9-36); SODIUM 127 mmol/l (137-146)
[2023-06-16 13:51] LABS: ALBUMIN 4.1 g/dL (3.2-5.0); TOTAL PROTEIN 6.8 g/dL (6.3-8.2)
== END 2023-06-16 13:48 | disposition left against medical advice (07) ==
LOC: ED 12:00 → LWOBS 13:48
PROVIDERS: Family Medicine
DX: Z53.21 Procedure and treatment not carried out due to patient leaving prior to being seen by health care provider (principal); R11.0 Nausea; Z11.52 Encounter for screening for COVID-19

== ENCOUNTER 2023-06-28 04:11 | Emergency (ER) | payer MEDICARE, MEDICAID ==
[~2023-06-28] VITALS: Ht 160 cm; Wt 62.0 kg
[2023-06-28] VITALS (28 sets, daily range): BP systolic 135–175; BP diastolic 73–104
[2023-06-28] MEDS ORDERED: SODIUM CHLORIDE 0.9% 1,000 ML IV ONE (04:55)
[2023-06-28 06:51] LABS: BASO% 0.6 % (0-3); EOS% 2.3 % (0-8); HEMATOCRIT 43.5 % (37.0-47.0); HEMOGLOBIN 14.1 g/dl (12.0-16.0); IMMATURE GRANULOCYTES 0.2 % (0.0-5.0); LYMPH% 18.6 % (15-41); MEAN CELL VOLUME 93.5 fL CALC (80.0-100.0); MEAN CORPUSCULAR HGB 30.3 pG CALC (26.0-32.0); MEAN CORPUSCULAR HGB CONC 32.4 g/dL CAL (32.0-36.0); NEUT# 4.48 thou/uL (2.00-7.15); NEUT% 72.3 % (42-76); RED BLOOD COUNT 4.65 mill/uL (4.20-5.60); RED CELL DISTRI WIDTH 14.5 % (11.5-15.5)
[2023-06-28 06:56] LABS: ALBUMIN 3.6 g/dL (3.2-5.0); ALKALINE PHOSPHATASE 81 u/l (38-126); ANION GAP 8 (6-22 (CALC)); BUN 3 mg/dL (8-23); BUN/CREATININE RATIO 8 (12-20 (CALC)); CARBON DIOXIDE 25 mmol/l (22-30); CHLORIDE 104 mmol/l (95-108); CREATININE 0.4 mg/dL (0.5-1.0); ETHYL ALCOHOL 0 mg/dl (0-30); GFR FOR AFR.AMER. > 60 ML/MIN (>=60 (CALC)); GFR OTHER RACES > 60 ML/MIN (>=60 (CALC)); MAGNESIUM 1.8 mg/dL (1.6-2.3); SGOT/AST 18 u/l (9-36); SODIUM 133 mmol/l (137-146); TOTAL PROTEIN 6.1 g/dL (6.3-8.2)
[2023-06-28 07:06] LABS: BILIRUBIN, TOTAL 0.5 mg/dL (0.02-1.3)
[2023-06-28 07:26] LABS: TSH, 3RD GENERATION 1.25 uIU/mL (0.47 - 4.68)
[2023-06-28 08:36] LABS: URINE BILIRUBIN - DIPSTICK Negative (NEGATIVE); URINE BLOOD DIPSTICK Negative (NEGATIVE); URINE GLUCOSE - DIPSTICK Negative (NEGATIVE); URINE KETONE 15 mg/dL (NEGATIVE); URINE LEUK ESTERASE Trace (NEGATIVE); URINE NITRITE - DIPSTICK Negative (Negative); URINE PROTEIN - DIPSTICK Negative (NEG-TRACE); URINE SPECIFIC GRAVITY 1.015; URINE UROBILINOGEN - DIPSTICK 0.2 E.U./dL (0.2)
[2023-06-28 08:37] LABS: URINE COLOR Yellow
[2023-06-28] MEDS ORDERED: LORazepam 1 MG/TAB PO ONE (09:55)
== END 2023-06-28 10:55 | disposition home or self-care (01) ==
LOC: ED 04:11
PROVIDERS: Family Medicine
DX: F41.9 Anxiety disorder, unspecified (principal); F31.9 Bipolar disorder, unspecified; I10 Essential (primary) hypertension; J43.9 Emphysema, unspecified; F17.200 Nicotine dependence, unspecified, uncomplicated

== ENCOUNTER 2023-11-11 04:10 | Emergency (ER) | payer MEDICARE, MEDICAID ==
[~2023-11-11] VITALS: Ht 149.9 cm; Wt 54.0 kg
[~2023-11-11 04:10] MED LIST changes: +ABILIFY10 MG PO; +BUSPAR10 MG PO; +CITRATE OF MEGNESIA PO; +CLONAZEPAM0.5 M1 PO; +DIAZEPAM5 M2 PO; +DULCOLAX10 MG RE; +DULERA1 AER IN; +MIRALAX17 GM PO; +MIRTAZAPINE30 M2 PO; +SENNA/DSS1 TAB PO; +STOOL SOFTENER100 M1 PO; +VENLAFAXINE37.5 MG PO
[2023-11-11 04:15] VITALS: BP 138/85
[2023-11-11] MEDS ORDERED: HYDROcodone 5 MG/Acetaminophen 325 MG/COMBO PO ONE (04:25)
[2023-11-11] MEDS ORDERED: diazePAM 5 MG/TAB PO ONE (04:25)
[2023-11-11] MEDS ORDERED: SEROQUEL100 MG PO (04:34)
[2023-11-11] MEDS ORDERED: REMERON15 MG PO (04:37)
[2023-11-11] MEDS ORDERED: MICROZIDE PO (04:43)
[2023-11-11] MEDS ORDERED: VITAMIN D-32000 UNI1 PO (04:44)
== END 2023-11-11 04:35 | disposition home or self-care (01) ==
LOC: ED 04:10
DX: F41.9 Anxiety disorder, unspecified (principal); F31.9 Bipolar disorder, unspecified; I10 Essential (primary) hypertension; J43.9 Emphysema, unspecified; F17.200 Nicotine dependence, unspecified, uncomplicated

== ENCOUNTER 2023-11-23 13:05 | Observation (INO) | payer MEDICARE, MEDICAID ==
[2023-11-23] VITALS (12 sets, daily range): BP systolic 112–149; BP diastolic 67–83
[~2023-11-23] VITALS: Ht 149.9 cm; Wt 59.6 kg
[~2023-11-23 13:05] MED LIST changes: -MYRBETRIQ25 MG PO; +REMERON15 MG PO; +SEROQUEL100 MG PO; +VITAMIN D-32000 UNI1 PO
[2023-11-23 13:31] LABS: BASO% 0.5 % (0-3); EOS% 0.9 % (0-8); HEMATOCRIT 41.6 % (37.0-47.0); HEMOGLOBIN 13.9 g/dl (12.0-16.0); IMMATURE GRANULOCYTES 0.3 % (0.0-5.0); LYMPH% 22.5 % (15-41); MEAN CELL VOLUME 91.6 fL CALC (80.0-100.0); MEAN CORPUSCULAR HGB 30.6 pG CALC (26.0-32.0); MEAN CORPUSCULAR HGB CONC 33.4 g/dL CAL (32.0-36.0); MONO% 7.9 % (2-13); NEUT# 5.24 thou/uL (2.00-7.15); NEUT% 67.9 % (42-76); RED BLOOD COUNT 4.54 mill/uL (4.20-5.60); RED CELL DISTRI WIDTH 14.1 % (11.5-15.5)
[2023-11-23 13:41] LABS: URINE BILIRUBIN - DIPSTICK Negative (NEGATIVE); URINE BLOOD DIPSTICK Negative (NEGATIVE); URINE GLUCOSE - DIPSTICK Negative (NEGATIVE); URINE KETONE Negative (NEGATIVE); URINE LEUK ESTERASE Negative (NEGATIVE); URINE NITRITE - DIPSTICK Negative (Negative); URINE PH 7.5 (4.5-8.0); URINE PROTEIN - DIPSTICK Negative (NEG-TRACE); URINE SPECIFIC GRAVITY 1.015; URINE UROBILINOGEN - DIPSTICK 0.2 E.U./dL (0.2)
[2023-11-23 13:42] LABS: URINE COLOR Yellow
[2023-11-23] MEDS ORDERED: KETOROLAC TROMETHAMINE 15 MG/ML SDV IV ONE (13:45)
[2023-11-23] MEDS ORDERED: SODIUM CHLORIDE 0.9% 1,000 ML IV ONE ×2 (13:45→16:50)
[2023-11-23] MEDS ORDERED: DiphenhydrAMINE HCL 50 MG/ML SDV IV ONE (13:45)
[2023-11-23] MEDS ORDERED: PROMETHAZINE HCL 25 MG/ML AMP IM ONE (13:45)
[2023-11-23 14:00] LABS: ALBUMIN 4.3 g/dL (3.2-5.0); CREATININE 0.7 mg/dL (0.5-1.0); POTASSIUM 3.5 mmol/l (3.5-5.1); TOTAL PROTEIN 7.4 g/dL (6.3-8.2)
[2023-11-23 14:17] LABS: BILIRUBIN, TOTAL 0.6 mg/dL (0.02-1.3)
[2023-11-23] MEDS ORDERED: IPRATROPIUM-Albuterol 0.5MG-2.5MG/3 ML NEB ONE (14:40)
[2023-11-23] MEDS ORDERED: MORPHINE SULFATE 4 MG/ML VIAL IV ONE (16:30)
[2023-11-23] MEDS ORDERED: traMADol HCL 50 MG/TAB PO PRN (20:30)
[2023-11-23] MEDS ORDERED: TOPIRAMATE 100 MG TAB PO SCH (20:31)
[2023-11-23] MEDS ORDERED: QUEtiapine FUMERATE 100 MG/TAB PO SCH (21:00)
[2023-11-23] MEDS ORDERED: busPIRone HCL 5 MG/TAB PO SCH (21:00)
[2023-11-23] MEDS ORDERED: clonazePAM 0.5 MG/TAB PO SCH (21:00)
[2023-11-23] MEDS ORDERED: MIRTAZAPINE 15 MG/TAB PO SCH (21:00)
[2023-11-23] MEDS ORDERED: PANTOPRAZOLE SODIUM Sesquihydr 40 MG/TAB PO SCH (22:50)
[2023-11-24] VITALS (8 sets, daily range): BP systolic 99–133; BP diastolic 49–81
[2023-11-24] MEDS ORDERED: HYDROcodone 5 MG/Acetaminophen 325 MG/COMBO PO SCH (07:00)
[2023-11-24] MEDS ORDERED: MAGNESIUM HYDROXIDE 30 ML UDC PO PRN (08:15)
[2023-11-24] MEDS ORDERED: ASPERCREME LIDOCA41 TOP (08:52)
[2023-11-24] MEDS ORDERED: VENTOLIN HFA108 MCG PO (08:53)
[2023-11-24] MEDS ORDERED: PROMETHAZINE HY25 M1 PO (08:54)
[2023-11-24] MEDS ORDERED: VARENICLINE TART1 M1 PO (08:54)
[2023-11-24] MEDS ORDERED: KAPIDEX30 MG PO (08:55)
[2023-11-24] MEDS ORDERED: VENLAFAXINE HCL75 M1 PO (08:55)
[2023-11-24] MEDS ORDERED: PANTOPRAZOLE SODIUM Sesquihydr 40 MG/TAB PO SCH ×2 (09:00)
[2023-11-24] MEDS ORDERED: ATORVASTATIN CALCIUM 10 MG/TAB PO SCH (09:00)
[2023-11-24] MEDS ORDERED: IPRATROPIUM-Albuterol 0.5MG-2.5MG/3 ML NEB PRN (11:10)
[2023-11-24] MEDS ORDERED: IPRATROPIUM-Albuterol 0.5MG-2.5MG/3 ML ONE (11:13)
[2023-11-24] MEDS ORDERED: NICOTINE TRANSDERMAL 21 MG/PATCH TD SCH (13:00)
[2023-11-25 04:27] VITALS: BP 131/82
[2023-11-25 05:13] LABS: BASO% 0.7 % (0-3); EOS% 1.4 % (0-8); IMMATURE GRANULOCYTES 0.3 % (0.0-5.0); LYMPH% 21.9 % (15-41); MEAN CELL VOLUME 94.2 fL CALC (80.0-100.0); MEAN CORPUSCULAR HGB 31.4 pG CALC (26.0-32.0); MEAN CORPUSCULAR HGB CONC 33.3 g/dL CAL (32.0-36.0); MONO% 8.5 % (2-13); NEUT# 4.91 thou/uL (2.00-7.15); NEUT% 67.2 % (42-76); RED BLOOD COUNT 4.46 mill/uL (4.20-5.60); RED CELL DISTRI WIDTH 14.8 % (11.5-15.5)
[2023-11-25 05:15] VITALS: BP 131/82
[2023-11-25 05:25] LABS: ALBUMIN 3.9 g/dL (3.2-5.0); BILIRUBIN, TOTAL 0.5 mg/dL (0.02-1.3); CREATININE 0.7 mg/dL (0.5-1.0); MAGNESIUM 2.1 mg/dL (1.6-2.3); POTASSIUM 4.2 mmol/l (3.5-5.1); TOTAL PROTEIN 6.5 g/dL (6.3-8.2)
[2023-11-25 07:23] VITALS: BP 133/79
[2023-11-25] MEDS ORDERED: APAP/TRAMADL1 TAB PO (10:26)
[2023-11-25] MEDS ORDERED: AMBIEN5 MG PO (10:26)
[2023-11-25] MEDS ORDERED: CLONAZEPAM0.5 M1 PO (10:26)
[2023-11-25] MEDS ORDERED: LACTULOSE 20 GM/30 ML UDC PO SCH (10:30)
[2023-11-25 12:01] VITALS: BP 139/70
== END 2023-11-25 15:24 ==
LOC: ED 13:05 → ED-I 16:50 → ED 17:20 → MS2 17:21
PROVIDERS: Nurse Practitioner; Nurse Practitioner Family; ADMIT Internal Medicine; ATTEND Internal Medicine
DX: G43.919 Migraine, unspecified, intractable, without status migrainosus (principal); F41.1 Generalized anxiety disorder; K59.00 Constipation, unspecified; I10 Essential (primary) hypertension; J43.9 Emphysema, unspecified; J96.11 Chronic respiratory failure with hypoxia; R10.13 Epigastric pain; M54.9 Dorsalgia, unspecified; G89.29 Other chronic pain; E78.5 Hyperlipidemia, unspecified; K21.9 Gastro-esophageal reflux disease without esophagitis; F31.9 Bipolar disorder, unspecified; F17.200 Nicotine dependence, unspecified, uncomplicated; T43.506A Underdosing of unspecified antipsychotics and neuroleptics, initial encounter; Z91.128 Patient's intentional underdosing of medication regimen for other reason
CPT/HCPCS: Q9967

== ENCOUNTER 2024-04-08 05:09 | Emergency (ER) | payer MEDICARE, MEDICAID ==
[~2024-04-08] VITALS: Ht 149.9 cm; Wt 56.6 kg
[~2024-04-08 05:09] MED LIST changes: +KAPIDEX30 MG PO; +VARENICLINE TART1 M1 PO; +VENLAFAXINE HCL75 M1 PO; +VENTOLIN HFA108 MCG PO
[2024-04-08 06:20] VITALS: BP 121/99
== END 2024-04-08 06:10 | disposition home or self-care (01) ==
LOC: ED 05:09
DX: Z76.0 Encounter for issue of repeat prescription (principal); F41.0 Panic disorder [episodic paroxysmal anxiety]; F31.9 Bipolar disorder, unspecified; I10 Essential (primary) hypertension; J44.9 Chronic obstructive pulmonary disease, unspecified; J43.9 Emphysema, unspecified; K21.9 Gastro-esophageal reflux disease without esophagitis; F12.90 Cannabis use, unspecified, uncomplicated; F17.210 Nicotine dependence, cigarettes, uncomplicated; Z91.148 Patient's other noncompliance with medication regimen for other reason

== ENCOUNTER 2024-05-03 15:31 | Emergency (ER) | payer MEDICARE, MEDICAID ==
[~2024-05-03] VITALS: Ht 149.9 cm; Wt 70.0 kg
[2024-05-03 18:40] VITALS: BP 121/98
[2024-05-03 19:14] LABS: BASO% 0.7 % (0-3); EOS% 1.7 % (0-8); HEMATOCRIT 42.7 % (37.0-47.0); HEMOGLOBIN 13.9 g/dl (12.0-16.0); IMMATURE GRANULOCYTES 0.1 % (0.0-5.0); LYMPH% 29.6 % (15-41); MEAN CORPUSCULAR HGB CONC 32.6 g/dL CAL (32.0-36.0); MONO% 5.8 % (2-13); NEUT# 5.09 thou/uL (2.00-7.15); NEUT% 62.1 % (42-76); RED BLOOD COUNT 4.64 mill/uL (4.20-5.60); RED CELL DISTRI WIDTH 14.4 % (11.5-15.5)
[2024-05-03 19:27] LABS: ALBUMIN 4.2 g/dL (3.2-5.0); BILIRUBIN, TOTAL 0.5 mg/dL (0.02-1.3); CREATININE 0.6 mg/dL (0.5-1.0); POTASSIUM 3.9 mmol/l (3.5-5.1); TOTAL PROTEIN 7.1 g/dL (6.3-8.2)
[2024-05-03] MEDS ORDERED: KEFLEX500 MG PO (20:29)
[2024-05-03] MEDS ORDERED: CEPHALEXIN MONOHYDRATE 500 MG/CAP PO ONE (20:30)
[2024-05-03 20:55] VITALS: BP 121/98
== END 2024-05-03 20:53 | disposition home or self-care (01) ==
LOC: ED 15:31
PROVIDERS: Nurse Practitioner
DX: J11.1 Influenza due to unidentified influenza virus with other respiratory manifestations (principal); R30.0 Dysuria; I10 Essential (primary) hypertension; J43.9 Emphysema, unspecified; F31.9 Bipolar disorder, unspecified; K21.9 Gastro-esophageal reflux disease without esophagitis; F17.200 Nicotine dependence, unspecified, uncomplicated; Z20.822 Contact with and (suspected) exposure to COVID-19